=== PATIENT | female | born 1955 | race African-American/Black ===

== ENCOUNTER 2018-09-18 09:27 | Inpatient (IN) | payer MEDICARE, OTHER ==
[~2018-09-18] VITALS: Ht 167.6 cm; Wt 123.8 kg
[~2018-09-18 09:27] MED LIST: ALBUT2 NEB; AMLO2.5T4 PO; ASCO500T8 PO; ASPI-1169 PO; ATOR20TA PO; BACL10TA PO; CEFT1VIA15 IV; CLON0.2T12 PO; DEXT15DR6 EACHEYE; DIPH25CA83 PO; DOCU50LI PO; FAMO20TA80 PO; FERR325T28 PO; FOLI1TAB16 PO; FURO20TA4 PO; HYDR2TAB4 PO; INSU100V9 SQ; IPRA3AMP23 IH; LISI30TA4 PO; LORA0.5T PO; MULT-594 PO; NUT.100029 PO; OXYC-128 PO; POTA20TA83 PO; PREG75CA PO; RIVA10TA PO; SERT25TA5 PO; SIME80TA15 PO
[2018-09-18] MEDS ORDERED: MEROPENEM 1 G in IV NS 0.9% 100 ML IV ONE (09:30)
[2018-09-18] MEDS ORDERED: IV NS 0.9% 1,000 ML BAG IV ONE (09:30)
--- NOTE | 2018-09-18 09:40 | NUR ---
patient presented to the ER due to AMS, bibra. on trach, connected to the monitor and pulse ox. patient is hardstick and called RN repair department supervisor for picc line. kept comfortable, will continue to monitor accordingly.
[2018-09-18 10:19] LABS: BASOPHILS % (AUTO) 0.2 % (0.0-2.0); HEMATOCRIT 35 % (33-45); HEMOGLOBIN 11.4 g/dL (11.5-14.8); LYMPHOCYTES # (AUTO) 0.8 /CMM (0.8-4.8); LYMPHOCYTES % (AUTO) 13.1 % (20.0-44.0); MEAN CORPUSCULAR HGB CONC 33 g/dl (31.0-36.0); MEAN CORPUSCULAR VOLUME 92 fL (82-100); MONOCYTES # (AUTO) 1.1 /CMM (0.1-1.30); MONOCYTES % (AUTO) 18.4 % (2.0-12.0); NEUTROPHILS # (AUTO) 4.2 /CMM (1.8-8.9); NEUTROPHILS % (AUTO) 68.3 % (43.0-81.0); PLATELET COUNT (AUTO) 142 /CMM (150-450); RED BLOOD CELL COUNT(AUTO) 3.78 MIL/uL (4.0-5.2); WHITE BLOOD COUNT (AUTO) 6.1 K/uL (4.3-11.0)
[2018-09-18 10:36] LABS: CALCIUM, SERUM 8.7 mg/dL (8.5-10.1); CREATININE 1.5 mg/dL (0.6-1.3); POTASSIUM 3.4 mmol/L (3.5-5.1)
[2018-09-18 10:41] LABS: BILIRUBIN,URINE MODERATE (NEGATIVE); BLOOD, URINE Large Ery/uL (NEGATIVE); COLOR,URINE Yellow (YELLOW); KETONES,URINE 15 (NEGATIVE); LEUKOCYTE ESTERASE ,URINE Large (NEGATIVE); NITRITE, URINE Negative (NEGATIVE); PROTEIN,URINE 30 mg/dl (NEGATIVE); UGLUCOSE Negative (NEGATIVE); UROBILINOGEN,URINE 0.2 EU/dL (0.2)
[2018-09-18 10:44] LABS: APPEARANCE,URINE Slightly Cloudy (CLEAR)
[2018-09-18 10:51] LABS: BILIRUBIN,DIRECT 0.1 mg/dL (0.0-0.2); BILIRUBIN,TOTAL 0.4 mg/dL (0.2-1.0); TOTAL PROTEIN, SERUM 7.2 g/dL (6.4-8.2)
[2018-09-18 10:59] LABS: LYMPHOCYTES % (MANUAL) 16 % (16-48); MONOCYTES % (MANUAL) 14 % (0-11.0); NEUTROPHILS % (MANUAL) 70 (42-76)
--- NOTE | 2018-09-18 11:10 | NUR ---
JACOB PICC LINE NURSE AT BEDSIDE
[2018-09-18 11:19] LABS: BACTERIA,URINE Many /HPF (None Seen); RBC,URINE 21-50 /HPF (0-2); WBC,URINE 21-50 /HPF (0-3)
[2018-09-18 11:20] LABS: SQUAMOUS EPITHELIAL CELL,UR Moderate /HPF (None Seen)
[2018-09-18] MEDS ORDERED: ONDA4TAB5 PO (11:20)
[2018-09-18] MEDS ORDERED: HYDR-4384 PO (11:20)
[2018-09-18] MEDS ORDERED: ACID1TAB12 PO (11:20)
[2018-09-18] MEDS ORDERED: LEVE250T2 PO (11:20)
[2018-09-18] MEDS ORDERED: TRAM50TA2 PO (11:20)
[2018-09-18] MEDS ORDERED: MAGN400O6 PO (11:20)
[2018-09-18] MEDS ORDERED: LACT10SO29 PO (11:20)
[2018-09-18] MEDS ORDERED: BLOO-668 IN (11:20)
[2018-09-18] MEDS ORDERED: PREG75CA PO (11:20)
[2018-09-18] MEDS ORDERED: HYDR10SY16 PO (11:20)
[2018-09-18] MEDS ORDERED: METF-440 PO (11:20)
[2018-09-18] MEDS ORDERED: SENN-168 PO (11:20)
[2018-09-18] MEDS ORDERED: CHOL100044 PO (11:20)
[2018-09-18] MEDS ORDERED: LEVO750T21 PO (11:20)
[2018-09-18] MEDS ORDERED: PREG100C PO (11:20)
[2018-09-18] MEDS ORDERED: MAGN296S44 PO (11:20)
[2018-09-18] MEDS ORDERED: CALC500T13 PO (11:20)
[2018-09-18] MEDS ORDERED: IPRA3AMP23 IH (11:21)
[2018-09-18] MEDS ORDERED: ZOLPIDEM TARTRATE 5 MG TABLET PO PRN (11:30)
[2018-09-18] MEDS ORDERED: Z GUARD REMEDY 2 OZ OINT TP PRN (11:30)
[2018-09-18] MEDS ORDERED: ACETAMINOPHEN 325 MG TABLET PO PRN (11:30)
[2018-09-18] MEDS ORDERED: LEVOFLOXACIN 750 MG /D5W 150ML 750 MG in PREMIX 1 EA IV SCH (11:30)
[2018-09-18] MEDS ORDERED: MAGNESIUM HYDROXIDE 30 ML UDC PO PRN (11:30)
[2018-09-18] MEDS ORDERED: MAG HYDROX/AL HYDROX/SIMETH 30 ML UDC PO PRN (11:30)
[2018-09-18] MEDS ORDERED: LEVOFLOXACIN 750 MG /D5W 150ML 150 ML IV ONE (11:43)
--- NOTE | 2018-09-18 11:57 | NUR ---
[facility] BED 118-1
--- NOTE | 2018-09-18 12:18 | NUR ---
RN NOTES RECEIVED ENDORSEMENT FROM MEY CAMP FOR PATIENT COMING IN DUE TO ALTERED MENTAL STATUS WITH TELEMETRY ACUITY UNDER THE SERVICE OF DR KING. ROOM PREPARED, BED ZERO OUT. AWAITING PATIENT'S ARRIVAL
--- NOTE | 2018-09-18 12:18 | NUR ---
called [facility] and spoke to sharon RN for CARLTON, report given.
[2018-09-18] MEDS: ENOXAPARIN SODIUM 40 MG/0.4 ML DISP.SYRIN SQ SCH (13:39)
--- NOTE | 2018-09-18 13:50 | NUR ---
RN NOTES RECEIVED PATIENT FROM ER TRANSPORTED VIA STRETCHER WITH A TRANSPORTER AND TECH. PATIENT CONFUSED, UNABLE TO COMMUNICATE AT THIS TIME. TRANSFERRED TO BED. WITH TRACH TUBE; IN PLACE AT MIDLINE, ON COOL AEROSOL AT 28% FIO2, PATIENT CLEANED AND MADE WARMTH. COMPLETE BODY ASSESSMENT WAS DONE. HEALED SKIN EXCORIATION NOTED ON THE L BUTTOCK AREA. PICTURE TAKEN AND NOTED, FILED ON THE CHART. UNABLE TO INTERVIEW THE PATIENT DUE TO ALTERED MENTAL STATUS. HEART MONITOR ATTACHED TO THE PATIENT SHOWED ST HR= 103. DIXIE MIDLINE NOTED PATENT, INTACT AND FLUSHED WELL. ADMISSION ORDERS FROM DR. KING CARRIED OUT. MRSA NARES SCREENING WAS DONE BY THE ER NURSE AND WAS SENT TO LAB. CALL LIGHT PLACED WITHIN REACH. HOB ELEVATED.SAFETY MEASURES PUT IN PLACED.NEEDS ANTICIPATED.
--- NOTE | 2018-09-18 14:20 | NUR ---
transferred patient to [facility] in no apparent distress, via acls protocol.
[2018-09-18] MEDS: IV D5/0.45 NACL 1,000 ML IV PRN (14:37)
[2018-09-18 16:00] VITALS: BP 142/82
--- NOTE | 2018-09-18 17:00 | NUR ---
RN NOTES PAGED DR. KING FOR MEDICATION RECONCILIATION.
[2018-09-18 18:52] VITALS: BP 142/82
--- NOTE | 2018-09-18 19:30 | NUR ---
RN NOTES ENDORSED PATIENT FOR CONTINUITY OF CARE. NOT ON ANY FORM OF DISTRESS. NO ACUTE CHANGES WITHIN THE SHIFT. ALL NURSING NEEDS ANTICIPATED AND ATTENDED
[2018-09-18 19:54] VITALS: BP 146/80
[2018-09-18 20:00] VITALS: BP 146/80
--- NOTE | 2018-09-18 20:10 | NUR ---
PLASMA CUTTING MACHINE OPERATOR OPENING NOTES RECEIVED REPORT FROM PAIGE RN. PATIENT NON-VERBAL BUT A/O X1 TO NAME & RESPONDS TO TOUCH. UNABLE TO MAKE NEEDS KNOWN @ THIS TIME & NOTED W/ LETHARGY. BREATHING EVEN & UNLABORED W/ TRACH INTACT & TOLERATING COOL AEROSOL @ 28%. NO RESPIRATORY DISTRESS NOTED. ON TELE W/ SINUS RHYTHM, HR 90. RIGHT UPPER ARM PICC LINE INTACT & PATENT W/ DRESSING CDI & IVF D5 1/2 NS INFUSING WELL @ 100 ML/HR. NO S/S OF PAIN OR DISCOMFORT @ THIS TIME. SAFETY MEASURES IN PLACE W/ SIDE RAILS UP & BED ALARM ON. HOB ELEVATED FOR ASPIRATION PRECAUTIONS. WILL CONTINUE TO MONITOR.
[2018-09-18] MEDS: CEFTRIAXONE 1 G in IV D5W 50 ML IV SCH (20:26)
[2018-09-18] MEDS ORDERED: DEXTROSE 50%-WATER 50 ML DISP.SYRIN IV PRN (20:30)
[2018-09-18] MEDS: ONDANSETRON HCL/PF 4 MG/2 ML VIAL IVP PRN (20:31)
--- NOTE | 2018-09-18 20:45 | NUR ---
SALES ACCOUNT SPECIALIST NOTES PATIENT HAD SMALL BROWN EMESIS X1. PRN ZOFRAN IV GIVEN. WILL CONTINUE TO MONITOR.
[2018-09-19] VITALS: BP 151/83
[2018-09-19] MEDS: BLOOD SUGAR DIAGNOSTIC 1 EACH STRIP IN SCH ×5 (00:51→23:12)
[2018-09-19] MEDS: INSULIN REGULAR, HUMAN 100 UNIT/ML 3 ML VIAL SQ PRN ×5 (00:54→23:15)
[2018-09-19] MEDS ORDERED: HYDROMORPHONE 1 MG/1 ML DISP.SYRIN IV ONE (01:00)
[2018-09-19] MEDS: IV D5/0.45 NACL 1,000 ML IV PRN ×3 (01:12→23:08)
[2018-09-19] MEDS: ONDANSETRON HCL/PF 4 MG/2 ML VIAL IVP PRN ×2 (01:12→21:20)
[2018-09-19 04:00] VITALS: BP 132/77
[2018-09-19 06:24] LABS: BASOPHILS % (AUTO) 0.1 % (0.0-2.0); HEMATOCRIT 32 % (33-45); HEMOGLOBIN 10.5 g/dL (11.5-14.8); LYMPHOCYTES # (AUTO) 0.6 /CMM (0.8-4.8); LYMPHOCYTES % (AUTO) 9.5 % (20.0-44.0); MEAN CORPUSCULAR HGB CONC 33 g/dl (31.0-36.0); MEAN CORPUSCULAR VOLUME 92 fL (82-100); MONOCYTES % (AUTO) 15.1 % (2.0-12.0); NEUTROPHILS # (AUTO) 4.8 /CMM (1.8-8.9); NEUTROPHILS % (AUTO) 75.3 % (43.0-81.0); PLATELET COUNT (AUTO) 129 /CMM (150-450); RED BLOOD CELL COUNT(AUTO) 3.45 MIL/uL (4.0-5.2); WHITE BLOOD COUNT (AUTO) 6.4 K/uL (4.3-11.0)
[2018-09-19 06:40] LABS: CALCIUM, SERUM 8.2 mg/dL (8.5-10.1); CREATININE 1.4 mg/dL (0.6-1.3); MAGNESIUM 1.8 mg/dL (1.8-2.4); PHOSPHORUS 2.1 mg/dL (2.5-4.9); POTASSIUM 3.2 mmol/L (3.5-5.1)
[2018-09-19 06:45] LABS: THYROID STIMULATING HORMONE 0.214 uIU/mL (0.358-3.74)
--- NOTE | 2018-09-19 07:03 | NUR ---
HEAVY EQUIPMENT SUPERVISOR NOTES PLACE PATIENT IN SOFT WRIST RESTRAINT ON LEFT ARM D/T PATIENT PULLING T-PIECE OFF. ORDER PLACED & ENDORSED TO AM NURSE.
--- NOTE | 2018-09-19 07:12 | NUR ---
RN NOTES RECEIVED PT ON BED, A/Ox1, TRACH DEPENDENT, NON VERBAL , NO SOB NOTED, TRACH INTACT & TOLERATING COOL AEROSOL @ 28%. NO RESPIRATORY DISTRESS NOTED. ON TELE SR HR IN 90'S, RIGHT UPPER ARM PICC LINE INTACT & PATENT W/ DRESSING CDI & IVF D5 1/2 NS INFUSING WELL @ 100 ML/HR. BULLARD DRAINING TO GRAVITY, SR UP x3, SAFETY MEASURES IN PLACE, BED ALARM ON. BED LOCKED AND IN LOWEST POSITION, HOB ELEVATED FOR ASPIRATION PRECAUTIONS. WILL CONTINUE TO MONITOR.
[2018-09-19 08:00] VITALS: BP 155/77
[2018-09-19] MEDS: ENOXAPARIN SODIUM 40 MG/0.4 ML DISP.SYRIN SQ SCH (08:49)
--- NOTE | 2018-09-19 08:57 | NUR ---
WOUND CARE CONSULT: PT PRESENTS WITH FECAL INCONTINENCE AND IMMOBILITY, SCARRING TO SACRUM, BUTTOCKS AND THIGHS, PRESENT ON ADMISSION. RECOMMENDATIONS MADE FOR SKIN PROTECTION. DISCUSSED WITH NURSING STAFF. PT ON [facility] LOW AIRSS BED. WILL SEE PRN. WONG IN AGREEMENT WITH PLAN OF CARE. Addendum: 09/19/18 at 0858 by STEPHEN LAUREN WNDNU Amended: Links added.
[2018-09-19 11:00] LABS: ABG BASE EXCESS 1.7 mmol/L; ABG PCO2 56.1 mmHg (35.0-45.0); ABG PH 7.325 (7.350-7.450); ABG PO2 76.2 mmHg (75.0-100.0); AaDO2 57.2 mmHg; COHb 0.4 % (0.5-1.5); MetHb 1.3 % (0.0-1.5); O2Hb 92.4 % (94.0-97.0); SITE, ABG Right Radial; VENT MODE, BG C/A 28%
--- NOTE | 2018-09-19 11:10 | NUR ---
RN NOTES DR GUERRA NOTIFIED REGARDING CO2 =56, NEW ORDER RECEIVED FOR ABG IN AM .
[2018-09-19] MEDS: HYDROCODONE/APAP 5/325MG 1 EACH TABLET PO PRN (11:39)
[2018-09-19 12:00] VITALS: BP 145/77
[2018-09-19] MEDS: POTASSIUM CHLORIDE 20 MEQ TAB.PRT.SR PO SCH ×3 (12:00→12:56)
--- NOTE | 2018-09-19 12:00 | NUR ---
RN NOTES PT REFUSED LUNCH AT THIS TIME .
[2018-09-19 12:06] LABS: APPEARANCE,URINE CLOUDY (CLEAR); BILIRUBIN,URINE NEGATIVE (NEGATIVE); BLOOD, URINE 3+ Ery/uL (NEGATIVE); KETONES,URINE NEGATIVE (NEGATIVE); LEUKOCYTE ESTERASE ,URINE 1+ (NEGATIVE); NITRITE, URINE POSITIVE (NEGATIVE); PROTEIN,URINE 2+ mg/dl (NEGATIVE); UGLUCOSE 1+ mg/dL (NEGATIVE); UROBILINOGEN,URINE 0.2 EU/dL (0.2)
[2018-09-19 12:10] LABS: COLOR,URINE DARK YELLOW (YELLOW)
[2018-09-19 12:15] LABS: CREATININE, URINE 67.5 MG/DL (30.0-125.0); URINE TOTAL PROTEIN 169.9 mg/dL (0-11.9)
[2018-09-19 12:16] LABS: BACTERIA,URINE Few /HPF (None Seen); RBC,URINE TOO NUMEROUS TO COUN /HPF (0-2); SQUAMOUS EPITHELIAL CELL,UR Rare /HPF (None Seen)
[2018-09-19 12:52] LABS: EOSINOPHIL,URINE Rare
[2018-09-19] MEDS ORDERED: Potassium Chloride 40 MEQ in IV NS 0.9% 1,000 ML IV ONE (13:00)
[2018-09-19] MEDS: HYDROMORPHONE 1 MG/1 ML DISP.SYRIN IV PRN ×3 (13:18→21:21)
[2018-09-19] MEDS: CEFTRIAXONE 1 G in IV D5W 50 ML IV SCH (13:22)
[2018-09-19] MEDS ORDERED: NEUTRA PHOS 1 POWD.PACKET PO ONE (13:30)
[2018-09-19] MEDS: POTASSIUM CL. PREMIX PERIPHER. 50 ML IV SCH ×4 (13:41→17:01)
[2018-09-19 16:00] VITALS: BP 113/62
--- NOTE | 2018-09-19 18:00 | NUR ---
RN NOTES NO SIGNIFICANT CHANGES NOTED ON THIS SHIFT ,WILL ENDORSE TO MANAGER CAFE NURSE FOR CONTINUITY OF CARE .
--- NOTE | 2018-09-19 19:45 | NUR ---
RN NOTES RECEIVED PT ASLEEP ON BED AOX1 ABLE TO EXPRESSED FEELINGS AND NODS. CONFUSED AND LETHARGIC MOST OF THE TIME. WITH TRACH SHILEY 6 ON COOL AEROSOL FIO2 28%. NO APPARENT RESPIRATORY DISTRESS. NSR ON TELE MONITOR. IV SITE ON DIXIE PICC LINE D5 1/2 NS @ 100ML/HR INTACT AND PATENT. WITH GOOD BLOOD RETURN. PATIENT HAS BULLARD CATH DRAINED BY GRAVITY OFF FROM FLOOR. KEPT PATIENT CLEAN AND COMFORTABLE IN BED. WILL CONTINUE TO MONITOR,
[2018-09-19 20:00] VITALS: BP 143/78
[2018-09-20] VITALS: BP 158/83
[2018-09-20] MEDS: HYDROCODONE/APAP 5/325MG 1 EACH TABLET PO PRN ×2 (01:29→17:49)
--- NOTE | 2018-09-20 01:35 | NUR ---
RN NOTES PATIENT SPIT OUT NORCO BY MOUTH,L WILL GIVE DILAUDID IVP
[2018-09-20] MEDS: HYDROMORPHONE 1 MG/1 ML DISP.SYRIN IV PRN ×2 (02:01→06:37)
[2018-09-20 04:00] VITALS: BP 152/79
[2018-09-20] MEDS: ALBUTEROL FS 2.5 MG/3 ML VIAL.NEB NEB SCH ×6 (05:25→23:11)
[2018-09-20] MEDS: IPRATROPIUM NEB FS 0.5 MG/2.5 ML AMPUL.NEB NEB SCH ×6 (05:25→23:11)
[2018-09-20] MEDS: BLOOD SUGAR DIAGNOSTIC 1 EACH STRIP IN SCH ×3 (06:37→18:01)
[2018-09-20 06:42] LABS: ALBUMIN 2.8 g/dL (3.4-5.0); BILIRUBIN,TOTAL 0.2 mg/dL (0.2-1.0); CALCIUM, SERUM 8.4 mg/dL (8.5-10.1); CREATININE 1.2 mg/dL (0.6-1.3); MAGNESIUM 1.8 mg/dL (1.8-2.4); PHOSPHORUS 1.6 mg/dL (2.5-4.9); POTASSIUM 3.2 mmol/L (3.5-5.1); TOTAL PROTEIN, SERUM 6.8 g/dL (6.4-8.2)
[2018-09-20] MEDS: INSULIN REGULAR, HUMAN 100 UNIT/ML 3 ML VIAL SQ PRN (06:43)
[2018-09-20 06:44] LABS: BASOPHILS % (AUTO) 0.2 % (0.0-2.0); HEMATOCRIT 32 % (33-45); HEMOGLOBIN 10.5 g/dL (11.5-14.8); LYMPHOCYTES # (AUTO) 0.7 /CMM (0.8-4.8); LYMPHOCYTES % (AUTO) 11.8 % (20.0-44.0); MEAN CORPUSCULAR HGB CONC 33 g/dl (31.0-36.0); MEAN CORPUSCULAR VOLUME 91 fL (82-100); MONOCYTES # (AUTO) 0.9 /CMM (0.1-1.30); MONOCYTES % (AUTO) 14.6 % (2.0-12.0); NEUTROPHILS # (AUTO) 4.6 /CMM (1.8-8.9); NEUTROPHILS % (AUTO) 73.4 % (43.0-81.0); PLATELET COUNT (AUTO) 129 /CMM (150-450); RED BLOOD CELL COUNT(AUTO) 3.53 MIL/uL (4.0-5.2); WHITE BLOOD COUNT (AUTO) 6.2 K/uL (4.3-11.0)
--- NOTE | 2018-09-20 07:00 | NUR ---
FIXED WING AIRCRAFT FLIGHT ENGINEER OPENING NOTES RECEIVED PT IN BED, A/OX1. PT ON TRACH TO COOL AEROSOL TO 28%O2 5L. ON TELE NSR 67. TOLERATING WELL. O2 SAT WNL. PT PICC LINE, C/D/I/P. IV FLUIDS RUNNING. F/C DRAINING CLEAR YELLOW URINE. STOOL COLLECTED. LOOSE BLACK STOOL NOTED. ABD DISTENDED AND FIRM. BED IN LOCKED/LOWEST POSITION. CALL LIGHT IN REACH. WILL CONT TO MONITOR.
--- NOTE | 2018-09-20 07:44 | NUR ---
RN NOTES PATIENT REMAINED IN THE SAME CONDITION. TEARY EYED WHEN AWAKE. FACIAL COMPLAINED OF PAIN NOTED. AFEBRILE. PRN PAIN MEDICINE GIVEN ORDERED AND REMAINED EFFECTIVE. ENDORSED TO AM SHIFT TO FOLLOW UP CT SCAN OF ABDOMEN/PELVIS WITHOUT CONTRAST. KEPT PT CLEAN AND COMFORTABLE IN BED.
[2018-09-20 08:00] VITALS: BP 133/77
[2018-09-20] MEDS ORDERED: POTASSIUM PHOSPHATE MM 15 MMOL in IV D5W 250 ML IV ONE (09:00)
[2018-09-20 09:26] LABS: ABG BASE EXCESS -1.8 mmol/L; ABG OXYGEN SATURATION 94.8 % (92.0-98.5); ABG PCO2 59.2 mmHg (35.0-45.0); ABG PH 7.261 (7.350-7.450); ABG PO2 80.2 mmHg (75.0-100.0); AaDO2 49.6 mmHg; COHb 0.8 % (0.5-1.5); MetHb 0.5 % (0.0-1.5); O2Hb 93.6 % (94.0-97.0); SITE, ABG Left Radial
--- NOTE | 2018-09-20 09:50 | NUR ---
RT @ 0945 - Pt trach needed to be changed to be placed on the vent. Dr. Sorto spoke with and agrees with trach change. Trach change done with new Shiley 6 cuffed trach. Trach change done with no complications. Equal bilateral breathe sounds and chest rise. Pt airway is patent. @ 0950 - Pt was placed on vent with noted settings. Vent alarms are set and audible with BVM by bedside. BLENDER/BRAZE APPLICATOR cuff pressure noted. Vent is plugged into red outlet. Pt appears to be comfortable on the vent with no respiratory distress. Addendum: 09/20/18 at 1028 by NIECY BEJARANO RT Amended: Links added.
--- NOTE | 2018-09-20 10:00 | NUR ---
SHIELD INSTALLER NOTES TRACH CHANGED TO VENT SETTINGS BY RT ORDERED BY . PT TOLERATING WELL.
[2018-09-20] MEDS: ENOXAPARIN SODIUM 40 MG/0.4 ML DISP.SYRIN SQ SCH (10:14)
[2018-09-20 12:00] VITALS: BP 106/53
[2018-09-20] MEDS: POTASSIUM CHLORIDE 20 MEQ TAB.PRT.SR PO SCH ×2 (12:00→13:00)
[2018-09-20] MEDS: IV 1/2NS 1000 ML 1,000 ML IV PRN (12:24)
[2018-09-20 13:04] LABS: ABG BASE EXCESS 1.8 mmol/L; ABG OXYGEN SATURATION 96.7 % (92.0-98.5); ABG PCO2 45.4 mmHg (35.0-45.0); ABG PH 7.394 (7.350-7.450); ABG PO2 89.4 mmHg (75.0-100.0); AaDO2 71.2 mmHg; COHb 0.6 % (0.5-1.5); MetHb 0.1 % (0.0-1.5); PEEP,BG 5 cm H2O; SITE, ABG Left Radial; VT, ABG 650 mL
[2018-09-20] MEDS: CEFTRIAXONE 1 G in IV D5W 50 ML IV SCH (14:56)
[2018-09-20 16:00] VITALS: BP 133/46
--- NOTE | 2018-09-20 16:00 | NUR ---
MIDDLE SCHOOL GUIDANCE COUNSELOR NOTES PT WENT TO CT FOR ABD/PELVIS SCAN. PT PLACED ON MONITOR AND RT AT BEDSIDE. PT TOLERATED PROCEDURE WELL.
[2018-09-20] MEDS: POTASSIUM CL. PREMIX PERIPHER. 50 ML IV SCH ×2 (16:18→18:48)
[2018-09-20 16:33] LABS: OCCULT BLOOD STOOL POSITIVE (NEGATIVE)
--- NOTE | 2018-09-20 17:45 | NUR ---
FUSING MACHINE TENDER NOTES PT REQUESTED PAIN MEDS. CRUSHED IN 10 CC LIQUID. AT BS PT REFUSED.
--- NOTE | 2018-09-20 18:59 | NUR ---
GUM ROLLING MACHINE TENDER CLOSING NOTES ENDORSED PT TO PM SHIFT FOR [place]. PT IN BED, RESTING COMFORTABLY ON VENT. ON TELE SR. IV FLUIDS INFUSING VIA PATENT PICC LINE. ALL NEEDS ATTENDED TO. CALL LIGHT IN REACH. BED IN LOCKED/LOWEST POSITION.
[2018-09-20 20:00] VITALS: BP 131/57
--- NOTE | 2018-09-20 20:00 | NUR ---
TELE/RN NOTES: RECEIVED PT. IN BED W/ HOB ELEVATED AT ALL TIMES. ON TELE MONITOR W/ SR. TALA. SOFT WRIST RESTRAINTS ON. W/ PICC LINE ON DIXIE W/ DRESSING C/D/I W/ NO S/S OF INFECTION/INFILTRATION NOTED. ON MECH. VENT SETTING TOLERATING WELL. NO FACIAL GRIMACES OR C/O PAIN OR DISCOMFORT OR SOB NOTED AT PRESENT. ON CONTACT ISOLATION . W/ FLEXISEAL INTACT DRAINING 300 ML OUTPUT. W/ F/C INTACT DRAINING SEDIMENTS. CALL LIGHT W/REACH. WILL CONTINUE TO MONITOR.
--- NOTE | 2018-09-20 23:29 | NUR ---
PT RCVD TRACH'D ON MECHANICAL VENT WITH CHARTED SETTINGS. HHN TX GIVEN AND NO ADVERSE REACTION NOTED. SX DONE. PT TRACH IS PATENT AND SECURE. AMBU BAG AT BEDSIDE. ALARMS ARE ON AND AUDIBLE. VENT PLUGGED INTO RED OUTLET. WILL CONTINUE TO MONITOR. Addendum: 09/20/18 at 2330 by CYNTHIA LEIGH RT Amended: Links added.
[2018-09-21] VITALS: BP 145/80
[2018-09-21] MEDS: BLOOD SUGAR DIAGNOSTIC 1 EACH STRIP IN SCH ×4 (00:02→17:09)
[2018-09-21] MEDS: INSULIN REGULAR, HUMAN 100 UNIT/ML 3 ML VIAL SQ PRN ×4 (00:05→17:04)
[2018-09-21] MEDS: HYDROMORPHONE 1 MG/1 ML DISP.SYRIN IV PRN ×5 (00:09→21:16)
[2018-09-21] MEDS: ALBUTEROL FS 2.5 MG/3 ML VIAL.NEB NEB SCH ×6 (03:16→23:30)
[2018-09-21] MEDS: IPRATROPIUM NEB FS 0.5 MG/2.5 ML AMPUL.NEB NEB SCH ×6 (03:16→23:30)
[2018-09-21 04:00] VITALS: BP 122/72
[2018-09-21 05:48] LABS: BASOPHILS % (AUTO) 0.1 % (0.0-2.0); HEMATOCRIT 27 % (33-45); HEMOGLOBIN 8.9 g/dL (11.5-14.8); LYMPHOCYTES # (AUTO) 0.7 /CMM (0.8-4.8); MEAN CORPUSCULAR HGB CONC 33 g/dl (31.0-36.0); MEAN CORPUSCULAR VOLUME 90 fL (82-100); MONOCYTES # (AUTO) 0.7 /CMM (0.1-1.30); MONOCYTES % (AUTO) 14.2 % (2.0-12.0); NEUTROPHILS # (AUTO) 3.3 /CMM (1.8-8.9); NEUTROPHILS % (AUTO) 70.7 % (43.0-81.0); PLATELET COUNT (AUTO) 117 /CMM (150-450); WHITE BLOOD COUNT (AUTO) 4.7 K/uL (4.3-11.0)
[2018-09-21 06:06] LABS: ALBUMIN 2.6 g/dL (3.4-5.0); BILIRUBIN,TOTAL 0.3 mg/dL (0.2-1.0); CALCIUM, SERUM 8.4 mg/dL (8.5-10.1); CREATININE 1.5 mg/dL (0.6-1.3); MAGNESIUM 1.6 mg/dL (1.8-2.4); PHOSPHORUS 1.4 mg/dL (2.5-4.9); TOTAL PROTEIN, SERUM 6.1 g/dL (6.4-8.2)
[2018-09-21 06:21] LABS: POTASSIUM 2.8 mmol/L (3.5-5.1)
--- NOTE | 2018-09-21 06:26 | NUR ---
RN/TELE NOTES: [facility] CALLED FOR CRITICAL OF K 2.8 AND GLUCOSE OF 350. TEXTED JAMISON TEJEDA NP. @ 06:22 WAITING FOR CALL BACK.
[2018-09-21] MEDS ORDERED: POTASSIUM CHLORIDE 10 MEQ/50 ML PREMIXED IVPB FOR PERIPHERAL LINE IV ONE (07:00)
--- NOTE | 2018-09-21 07:45 | NUR ---
RN/TELE NOTES: REPORT GIVEN TO NEXT SHIFT NURSE FOR [place].
--- NOTE | 2018-09-21 07:54 | NUR ---
TRIMMER AND REINFORCER NOTES RECEIVED PATIENT FROM NIGHT RN. PT TRACH'D ON MECHANICAL VENT WITH PRESCRIBED SETTINGS. TRACH IS PATENT AND SECURE. AMBU BAG AT BEDSIDE. BULLARD PATENT W/ CLEAR YELLOW URINE. FLEXISEAL PATENT. DIXIE PICC LINE INTACT AND PATENT. ALARMS ARE ON AND AUDIBLE. VENT PLUGGED INTO RED OUTLET. WILL CONTINUE TO MONITOR.
[2018-09-21 08:00] VITALS: BP 104/41
[2018-09-21] MEDS: ENOXAPARIN SODIUM 40 MG/0.4 ML DISP.SYRIN SQ SCH (09:22)
[2018-09-21] MEDS: POTASSIUM CL. PREMIX PERIPHER. 50 ML IV SCH ×5 (10:07→15:35)
[2018-09-21] MEDS ORDERED: MEROPENEM 500 MG in IV NS 0.9% 50 ML IV ONE (11:00)
[2018-09-21] MEDS ORDERED: Magnesium 1GM/D5W 100ML PREMIX 100 ML IV SCH (11:03)
[2018-09-21 12:00] VITALS: BP 123/67
--- NOTE | 2018-09-21 14:20 | NUR ---
COFFEE SHOP ATTENDANT NOTE ASHLEY AT BEDSIDE NOTIFIED THAT EARLIER PATIENT C]O PAIN AND DILAIYUDID GIVEN ALSO HAS A LOT SECRETION ,TRACH CARE DONE ON NPO AT THIS TIME
[2018-09-21] MEDS: POTASSIUM PHOSPHATE MM 5 MMOL in IV D5W 100 ML IV SCH ×2 (14:45→16:59)
[2018-09-21 15:09] LABS: PTH, INTACT 67 pg/mL (15-65)
--- NOTE | 2018-09-21 15:09 | NUR ---
FLAGSETTER NOTE PATIENT D/C AMBULATORY. AT SIDE DURING D/C. IV REMOVED. PATIENT STABLE, V/S WNL, A/O X 4. REFUSED USE OF WHEELCHAIR. D/C COMPLETED W/O INCIDENT. Addendum: 09/21/18 at 1522 by FRANCESCA JOSE RN DISREGARD WRONG PATIENT
--- NOTE | 2018-09-21 15:21 | NUR ---
RUBBER MILL TENDER NOTE UNABLE TO REMOVED SOFT RESTRAIN STILL AT [facility] TO REMOVE ALL LINES
[2018-09-21 16:00] VITALS: BP 116/48
[2018-09-21] MEDS ORDERED: POTASSIUM CL. PREMIX PERIPHER. 50 ML IV SCH (16:00)
--- NOTE | 2018-09-21 18:24 | NUR ---
PATIENT ENDORSED TO PM SHIFT RN. PT IN BED, RESTING COMFORTABLY. A/O X 2, MENTAL STATUS UNCHANGED DURING SHIFT. PATIENT TRACH/VENT AND RUNNING PRESCRIBED. BREATHING UNLABORED AND WNL. SR ON TELE, DIXIE PICC LINE PATENT W/ NO S/S OF INFECTION. IV FLUID INFUSING. BULLARD INTACT AND PATENT W/ CLEAR YELLOW URINE. FLEXISEAL PATENT. BED IN LOW LOCKED POSITION, CALL LIGHT WITHIN REACH. ALL NEEDS ATTENDED TO.
[2018-09-21] MEDS: IV 1/2NS 1000 ML 1,000 ML IV PRN (18:43)
--- NOTE | 2018-09-21 18:56 | NUR ---
WINDOWS SERVER SPECIALIST NOTES RESTRAINT ORDER D/C. PATIENT COOPERATIVE AND NOT ATTEMPTING TO PULL LINES, TUBING OR PRESENT ANY DANGER TO HER SELF OR OTHERS.
--- NOTE | 2018-09-21 19:30 | NUR ---
EXERCISE INSTRUCT NOTE: RECEIVED PT ON BED ALERT AND AWAKE WITH NO APPARENT DISTRESS NOTED. PT ABLE TO MAKE HER NEEDS KNOWN, MOUTHS WORDS. DENIES PAIN AND DISCOMFORT AT THIS TIME. ON [facility] VENT, SETTINGS ORDERED. BULLARD CATH AND FLEXISEAL INTACT AND PATENT, DRAINING WELL. SINUS RHYTHM ON TELE MONITOR HR 69BPM. KEPT CLEAN, DRY AND COMFORTABLE. SAFETY AND FALL PRECAUTIONS OBSERVED AND MAINTAINED. WILL CONTINUE TO MONITOR PT.
[2018-09-21 20:00] VITALS: BP 135/63
[2018-09-21] MEDS ORDERED: MEROPENEM 500 MG in IV NS 0.9% 100 ML IV SCH (21:00)
[2018-09-21] MEDS: MEROPENEM 500 MG in IV NS 0.9% 100 ML IV SCH (22:06)
[2018-09-22] VITALS (7 sets, daily range): BP systolic 138–198; BP diastolic 68–82
[2018-09-22] MEDS: BLOOD SUGAR DIAGNOSTIC 1 EACH STRIP IN SCH ×5 (00:04→20:20)
[2018-09-22] MEDS: INSULIN REGULAR, HUMAN 100 UNIT/ML 3 ML VIAL SQ PRN ×5 (00:17→20:24)
[2018-09-22] MEDS: HYDROMORPHONE 1 MG/1 ML DISP.SYRIN IV PRN ×6 (00:49→21:31)
[2018-09-22] MEDS: ALBUTEROL FS 2.5 MG/3 ML VIAL.NEB NEB SCH ×6 (03:35→23:22)
[2018-09-22] MEDS: IPRATROPIUM NEB FS 0.5 MG/2.5 ML AMPUL.NEB NEB SCH ×6 (03:35→23:22)
[2018-09-22 05:14] LABS: *SPE A/G RATIO 0.9 (0.7-1.7); *SPE ALBUMIN 2.9 g/dL (2.9-4.4); *SPE ALPHA-1-GLOBULIN 0.2 g/dL (0.0-0.4); *SPE ALPHA-2-GLOBULIN 1.3 g/dL (0.4-1.0); *SPE BETA GLOBULIN 0.9 g/dL (0.7-1.3); *SPE GLOBULIN, TOTAL 3.4 g/dL (2.2-3.9); *SPE M-SPIKE Not Observed g/dL (Not Observed)
--- NOTE | 2018-09-22 06:38 | NUR ---
FORMAL SERVICE WAITER NOTE: NO CHANGES NOTED THROUGHOUT THE SHIFT. PT COMPLAINED OF GENERALIZED PAIN, PRN PAIN MEDS GIVEN. NO RESPIRATORY DISTRESS NOTED. [facility] ORDERED. ON TELE MONITOR SINUS RHYTHM HR 83BPM. BULLARD CATH INTACT, DRAINED 600ML OF URINE OUTPUT. FLEXISEAL INTACT AND PATENT, DRAINING WELL. KEPT CLEAN, DRY AND COMFORTABLE. SAFETY AND FALL PRECAUTIONS OBSERVED AND MAINTAINED. WILL ENDORSE TO DAY SHIFT RN FOR CONTINUITY OF CARE.
[2018-09-22 06:52] LABS: BASOPHILS % (AUTO) 0.1 % (0.0-2.0); HEMATOCRIT 23 % (33-45); HEMOGLOBIN 7.8 g/dL (11.5-14.8); LYMPHOCYTES # (AUTO) 0.7 /CMM (0.8-4.8); LYMPHOCYTES % (AUTO) 15.1 % (20.0-44.0); MEAN CORPUSCULAR HGB CONC 34 g/dl (31.0-36.0); MEAN CORPUSCULAR VOLUME 90 fL (82-100); MONOCYTES # (AUTO) 0.5 /CMM (0.1-1.30); MONOCYTES % (AUTO) 11.7 % (2.0-12.0); NEUTROPHILS # (AUTO) 3.3 /CMM (1.8-8.9); NEUTROPHILS % (AUTO) 73.1 % (43.0-81.0); PLATELET COUNT (AUTO) 130 /CMM (150-450); RED BLOOD CELL COUNT(AUTO) 2.59 MIL/uL (4.0-5.2); WHITE BLOOD COUNT (AUTO) 4.5 K/uL (4.3-11.0)
[2018-09-22 07:01] LABS: CALCIUM, SERUM 8.4 mg/dL (8.5-10.1); CREATININE 1.2 mg/dL (0.6-1.3); MAGNESIUM 1.8 mg/dL (1.8-2.4); PHOSPHORUS 1.8 mg/dL (2.5-4.9)
[2018-09-22 07:05] LABS: POTASSIUM 2.8 mmol/L (3.5-5.1)
--- NOTE | 2018-09-22 07:30 | NUR ---
SALESPERSON WOMEN'S DRESSES NOTES PATIENT RECEIVED RESTING INSIDE ROOM. AWAKE, ALERT AND ORIENTED X 2, ABLE TO MAKE NEEDS KNOWN, ABLE TO MOUTH WORDS. CONTINUE ON VENT/TRACH. NPO AT THIS TIME, AWAITING FOR ST EVAL. NO ACUTE DISTRESS. PATIENT DENIES ANY PAIN OR DISCOMFORT AT THIS TIME. BULLARD CATHETER IN PLACE. FLEXISEAL IN PLACE. MAINTAINED ASPIRATION AND ISOLATION PRECAUTIONS. DIXIE PICCLINE IN PLACE, DRESSING CLEAN AND INTACT. WILL CONTINUE TO MONITOR. BED LOCKED AND IN LOW POSITION. BILATERAL UPPER SIDE RAILS UP AND LOCKED. CALL LIGHT WITHIN EASY REACH
--- NOTE | 2018-09-22 07:53 | NUR ---
PT PLACED ON COOL AEROSOL PER DR. GUERRA ORDERS. CUFF DEFLATED. PT IS AWAKE AND ALERT. SX'D SCANT AMT OF THICK STONE/WHITE SECRETIONS. MEY HERNÁNDEZ AWARE. Addendum: 09/22/18 at 1004 by KIMO MCDERMOTT RT Amended: Links added.
[2018-09-22] MEDS ORDERED: Potassium Phosphate meq 11 MEQ in IV D5W 100 ML IV SCH (08:30)
--- NOTE | 2018-09-22 08:33 | NUR ---
PT PLACED BACK ON FULL VENTILATOR SUPPORT DUE TO THE PATIENT GOING INTO RESP. DISTRESS. PT BECAME TACHYPNEIC, TACHYCARDIC, AND COMPLAINING ON CHEST PAIN. ONCE BACK ON VENT, CUFF WAS INFLATED AND PT STABILIZED. MEY HERNÁNDEZ WAS MADE AWARE AND I ASKED IF HE CAN GIVE THE PATIENT ANY PAIN MEDS SINCE THE PATIENT WAS COMPLAINING OF CHEST PAIN. DR. GUERRA MADE AWARE.
--- NOTE | 2018-09-22 08:40 | NUR ---
TRADE ECONOMIST NOTES SBT TRIAL INITIATED WITH RT BUT PATIENT UNABLE TO TOLERATE, PATIENT BECAME TACHYPNEIC, TACHYCARDIC, AND C/O PAIN. PLACED BACK TO VENT AND PATIENT STABILIZED. WILL CONTINUE TO MONITOR
[2018-09-22] MEDS: POTASSIUM CL. PREMIX PERIPHER. 50 ML IV SCH ×4 (09:16→15:30)
[2018-09-22] MEDS: ENOXAPARIN SODIUM 40 MG/0.4 ML DISP.SYRIN SQ SCH (09:17)
--- NOTE | 2018-09-22 10:00 | NUR ---
HIDE CURER NOTES DR. GUERRA PRESENT AT UNIT, VERBALIZED THAT RT HAS REPORTED TO HIM ABOUT SBT TRIAL RESULT AND VERBALIZED THAT PATIENT WILL CONTINUE ON VENT FOR NOW. WILL CONTINUE TO MONITOR
[2018-09-22 11:00] LABS: BAND % (MANUAL) 1 % (0.0-5.0); LYMPHOCYTES % (MANUAL) 10 % (16-48); MONOCYTES % (MANUAL) 7 % (0-11.0); NEUTROPHILS % (MANUAL) 82 (42-76)
[2018-09-22] MEDS ORDERED: DEXTROSE 50%-WATER 50 ML DISP.SYRIN IV PRN (12:00)
[2018-09-22] MEDS: MEROPENEM 500 MG in IV NS 0.9% 100 ML IV SCH ×2 (12:21→22:21)
[2018-09-22] MEDS: IV D5W 1,000 ML IV PRN (12:39)
[2018-09-22] MEDS: Potassium Phosphate meq 11 MEQ in IV D5W 100 ML IV SCH ×2 (17:10→20:11)
[2018-09-22 17:33] LABS: CHLORIDE,URINE RANDOM 64 mmol/L (55-125); POTASSIUM RNDM,URINE 15 mmol/L (25-125); URINE SODIUM, RANDOM 29 mmol/l (40-220)
[2018-09-22 18:14] LABS: OSMOLALITY,URINE 552 mOS/kg (340-1090)
--- NOTE | 2018-09-22 18:49 | NUR ---
TUBE BLOWER NOTES PATIENT RESTING INSIDE ROOM. AWAKE, ALERT AND ORIENTED X 2, ABLE TO MOUTH WORDS. ABLE TO MAKE NEEDS KNOWN. CONTINUE ON VENT/TRACH SETTING. NO ACUTE DISTRESS AT THIS TIME. DENIES ANY PAIN OR DISCOMFORT. BULLARD CATHETER AND FLEXISEAL IN PLACE AND BOTH DRAINING WELL. MAINTAINED ASPIRATION PRECAUTION, HOB ELEVATION AT 45. MAINTAINED ISOLATION PRECAUTION. WILL ATTEMPT TO WEAN OFF PATIENT FROM VENT TO CPAP, PER DR. GUERRA. PATIENT MADE AWARE AND VERBALIZED UNDERSTANDING. PATIENT KEPT CLEAN, DRY AND COMFORTABLE. WILL ENDORSE TO INCOMING SHIFT FOR [place]. BED LOCKED AND IN LOW POSITION. BILATERAL UPPER SIDE RAILS UP AND LOCKED. CALL LIGHT WITHIN EASY REACH
--- NOTE | 2018-09-22 19:55 | NUR ---
PERSONAL CARE WORKER NOTE: RECEIVED PT ON BED ALERT AND AWAKE WITH NO APPARENT DISTRESS NOTED. PT ABLE TO MAKE HER NEEDS KNOWN, MOUTHS WORDS. COMPLAINED OF GENERALIZED PAIN, PRN PAIN MEDS WILL BE GIVEN. [facility], SETTINGS ORDERED. SATURATING WELL. BULLARD CATH AND FLEXISEAL INTACT AND PATENT, DRAINING WELL. SINUS EDDIE ON TELE MONITOR HR 57BPM. KEPT CLEAN, DRY AND COMFORTABLE. SAFETY AND FALL PRECAUTIONS OBSERVED AND MAINTAINED. WILL CONTINUE TO MONITOR PT.
--- NOTE | 2018-09-22 22:04 | NUR ---
RT PT RECEIVED TRACHED ON [place] VENT ON CHARTED SETTINGS. NO SIGNS OF DISTRESS AT THIS MOMENT. AIRWAY PATENT AND SECURED. PT SUCTIONED. PT GIVEN HHN TX. ALARMS SET AND AUDIBLE. AMBUBAG AND BACK UP TRACH AT BEDSIDE. VENT CONNECTED TO RED OUTLET. WILL CONT TO MONITOR. Addendum: 09/22/18 at 2207 by DONNA CRUZ RT Amended: Links added.
[2018-09-23] VITALS (7 sets, daily range): BP systolic 128–145; BP diastolic 47–78
[2018-09-23] MEDS: BLOOD SUGAR DIAGNOSTIC 1 EACH STRIP IN SCH ×6 (01:05→21:02)
[2018-09-23] MEDS: INSULIN REGULAR, HUMAN 100 UNIT/ML 3 ML VIAL SQ PRN ×6 (01:06→21:08)
[2018-09-23] MEDS: HYDROMORPHONE 1 MG/1 ML DISP.SYRIN IV PRN ×5 (01:06→20:06)
[2018-09-23] MEDS: IV D5W 1,000 ML IV PRN ×2 (03:08→15:02)
[2018-09-23] MEDS: IPRATROPIUM NEB FS 0.5 MG/2.5 ML AMPUL.NEB NEB SCH ×6 (03:29→23:18)
[2018-09-23] MEDS: ALBUTEROL FS 2.5 MG/3 ML VIAL.NEB NEB SCH ×6 (03:29→23:18)
[2018-09-23 06:27] LABS: BASOPHILS % (AUTO) 0.2 % (0.0-2.0); EOSINOPHILS % (AUTO) 0.6 % (0.0-6.0); HEMATOCRIT 24 % (33-45); HEMOGLOBIN 7.9 g/dL (11.5-14.8); LYMPHOCYTES # (AUTO) 1.2 /CMM (0.8-4.8); LYMPHOCYTES % (AUTO) 24.3 % (20.0-44.0); MEAN CORPUSCULAR HGB CONC 33 g/dl (31.0-36.0); MEAN CORPUSCULAR VOLUME 90 fL (82-100); MONOCYTES # (AUTO) 0.7 /CMM (0.1-1.30); NEUTROPHILS # (AUTO) 3.1 /CMM (1.8-8.9); NEUTROPHILS % (AUTO) 61.9 % (43.0-81.0); PLATELET COUNT (AUTO) 158 /CMM (150-450); RED BLOOD CELL COUNT(AUTO) 2.63 MIL/uL (4.0-5.2)
[2018-09-23 06:54] LABS: ALBUMIN 2.3 g/dL (3.4-5.0); BILIRUBIN,TOTAL 0.3 mg/dL (0.2-1.0); CALCIUM, SERUM 8.5 mg/dL (8.5-10.1); MAGNESIUM 1.6 mg/dL (1.8-2.4); PHOSPHORUS 3.7 mg/dL (2.5-4.9); POTASSIUM 2.9 mmol/L (3.5-5.1)
--- NOTE | 2018-09-23 06:59 | NUR ---
OPTICAL SYSTEMS ENGINEER NOTE: NO CHANGES NOTED THROUGHOUT THE SHIFT. NO COMPLAINTS OF PAIN OR DISCOMFORT AT THIS TIME. NO RESPIRATORY DISTRESS NOTED. [facility] VENT SETTINGS ORDERED. ON TELE MONITOR SINUS RHYTHM HR 62BPM. BULLARD CATH INTACT, DRAINED 300ML OF URINE OUTPUT. FLEXISEAL INTACT AND PATENT, DRAINING WELL. KEPT CLEAN, DRY AND COMFORTABLE. SAFETY AND FALL PRECAUTIONS OBSERVED AND MAINTAINED. WILL ENDORSE TO DAY SHIFT RN FOR CONTINUITY OF CARE.
--- NOTE | 2018-09-23 07:20 | NUR ---
RN OPENING NOTE RECEIVED PATIENT IN BED AWAKE, VERBALIZES HER NEEDS SHE CAN. A&Ox3. ON TELE MONITOR SINUS RHYTHM AND EDDIE AT TIMES. BULLARD CATHETER ON GRAVITY WITH CLEAR AND YELLOW URINE. ON FLEXISEAL. HAS A RIGHT UPPER PICC LINE, WITH D5W RUNNING AT 125 ML/HR. BED LOCKED AND ON LOWEST POSITION. CALL LIGHT WITHIN REACH. WILL CONT TO MONITOR PATIENT CLOSELY
--- NOTE | 2018-09-23 08:10 | NUR ---
pt placed on cpap mode per md orders. abg to be taken in 1 hr will continue to monitor closely Addendum: 09/23/18 at 0834 by DAYAN MANUEL RT Amended: Links added.
[2018-09-23] MEDS: ENOXAPARIN SODIUM 40 MG/0.4 ML DISP.SYRIN SQ SCH (09:14)
[2018-09-23 09:26] LABS: ABG OXYGEN SATURATION 96.6 % (92.0-98.5); ABG PH 7.412 (7.350-7.450); ABG PO2 98.3 mmHg (75.0-100.0); AaDO2 62.7 mmHg; COHb 0.4 % (0.5-1.5); MetHb 0.4 % (0.0-1.5); O2Hb 95.8 % (94.0-97.0); SITE, ABG Right Radial
[2018-09-23] MEDS: MEROPENEM 500 MG in IV NS 0.9% 100 ML IV SCH ×2 (10:59→23:15)
[2018-09-23] MEDS: Magnesium 1GM/D5W 100ML PREMIX 100 ML IV SCH ×2 (12:04→13:17)
[2018-09-23] MEDS: POTASSIUM CL. PREMIX PERIPHER. 50 ML IV SCH ×4 (12:04→18:00)
--- NOTE | 2018-09-23 13:40 | NUR ---
PT PLACED BACK ON AC MODE PER MD REQUEST. Addendum: 09/23/18 at 1350 by DAYAN MANUEL RT Amended: Links added.
--- NOTE | 2018-09-23 19:30 | NUR ---
RN CLOSING NOTE PATIENT IN BED, AWAKE AND ALERT, MOUTHS WORDS. ALL MEDS ARE GIVEN. REPLACED MAGNESIUM AND POTASSIUM. PATIENT HAS A RIGHT UPPER ARM PICC LINE, WITH D5W RUNNING AT 125 ML/HR. PATIENT ASKED FOR A PAIN MED, DILAUDID. LAST GIVEN WAS AT 1506. PATIENT IS STILL NPO, KEEP NPO PER MD ORDER. BED LOCKED AND LOWEST POSITION. CALL LIGHT WITHIN REACH. WILL ENDORSE TO NOC SHIFT RN
--- NOTE | 2018-09-23 19:30 | NUR ---
RN NOTES RECEIVED PT. AWAKE ON BED, VENT DEPENDENT, A/OX2, MOUTH WORDS, SB ON TELE MONITOR HR-58, PICC LINE IN PLACE, CALL LIGHT WITHIN REACH, [id number], CONTINUE TO MONITOR
--- NOTE | 2018-09-23 20:11 | NUR ---
RN NOTES COMPLAINED OF GENERALIZED PAIN- DILAUDID 1MG IV GIVEN ORDERED, V/S STABLE
[2018-09-24] VITALS: BP 130/62
[2018-09-24] MEDS: BLOOD SUGAR DIAGNOSTIC 1 EACH STRIP IN SCH ×6 (00:18→20:49)
[2018-09-24] MEDS: HYDROMORPHONE 1 MG/1 ML DISP.SYRIN IV PRN ×6 (00:18→21:29)
--- NOTE | 2018-09-24 00:18 | NUR ---
RN NOTES COMPLAINED OF GENERALIZED PAIN- DILAUDID 1MG IV GIVEN ORDERED, V/S STABLE
[2018-09-24] MEDS: INSULIN REGULAR, HUMAN 100 UNIT/ML 3 ML VIAL SQ PRN ×6 (00:28→20:56)
--- NOTE | 2018-09-24 01:43 | NUR ---
RT NOTE PATIENT WAS RECEIVED ON CONTINUOUS VENT SUPPORT ON NOTED SETTINGS. HHN INLINE TREATMENT WAS GIVEN , NO ADVERSE REACTION NOTED. PRN SUCTION WAS DONE. TRACH PATENT PATENT AND SECURED. ALARMS ARE ON AND AUDIBLE. NO TRESP
[2018-09-24] MEDS: IPRATROPIUM NEB FS 0.5 MG/2.5 ML AMPUL.NEB NEB SCH ×6 (03:21→23:24)
[2018-09-24] MEDS: ALBUTEROL FS 2.5 MG/3 ML VIAL.NEB NEB SCH ×6 (03:21→23:24)
[2018-09-24 04:00] VITALS: BP 126/58
--- NOTE | 2018-09-24 05:13 | NUR ---
RN NOTES COMPLAINED OF GENERALIZED PAIN- DILAUDID 1MG IV GIVEN ORDERED, V/S STABLE
[2018-09-24] MEDS: IV D5W 1,000 ML IV PRN ×2 (05:39→17:15)
--- NOTE | 2018-09-24 06:28 | NUR ---
RN NOTES SLEEPING BUTA ROUSABLE, NOT IN DISTRESS, RECTAL TUBE IN PLACE, PIETER PAIN , [id number], MORNING CARE RENDERED
--- NOTE | 2018-09-24 07:30 | NUR ---
RN NOTES RECEIVED PATIENT IN BED, A/0 X2-3, ABLE TO RESPOND VERBALLY, ABLE TO MAKE NEEDS KNOWN THRU MOUTHING OF WORDS, ON VENT OF PRESCRIBED SETTING, TOLERATING WELL, NO SOB NOTED AT THIS TIME. PATIENT WITH COMPLAINTSOF PAIN AT THIS TIME 05/10- WILL ADMINISTER DUE PRN PAIN MEDICATION FOR PAIN. SINUS RHYTHM WITH HR 60 ON THE MONITORAT. BULLARD CATHETER INTACT DRAINING TO CLEAR AND YELLOW URINE VIA GRAVITY. FLEXISEAL IN PLACE DRAINING TO BROWNISH STOOL. RIGHT UPPER PICC LINE C/D/I/P ON FLUSHING, WITH D5W RUNNING AT 125 ML/HR. CALL LIGHT PLACED WITHIN EASY REACH. BED LOCKED AND ON LOWEST POSITION. WILL CONT TO MONITOR PATIENT CLOSELY
[2018-09-24 08:00] VITALS: BP 158/84
[2018-09-24] MEDS: ENOXAPARIN SODIUM 40 MG/0.4 ML DISP.SYRIN SQ SCH (09:13)
[2018-09-24] MEDS: MEROPENEM 500 MG in IV NS 0.9% 100 ML IV SCH ×2 (11:20→22:07)
[2018-09-24 12:00] VITALS: BP 156/82
[2018-09-24 16:00] VITALS: BP 147/86
[2018-09-24] MEDS ORDERED: LORAZEPAM INJ 2 MG/ML VIAL IV PRN (17:00)
[2018-09-24] MEDS: PANTOPRAZOLE 40 MG VIAL IV SCH (17:14)
[2018-09-24] MEDS: LIDOCAINE 5% (PATCH) 1 EA PATCH TP SCH (17:14)
--- NOTE | 2018-09-24 19:32 | NUR ---
RT NOTE: RECEIVED TRACH [facility] AND PLACED ON AC MODE DURING NIGHT PER MD'S ORDERS. TRACH IS PATENT AND SECURED. QUALITY CONTROL ASSOCIATE DONE. AMBU BAG @ BEDSIDE. SX DONE PRN. ALARMS ON AND AUDIBLE. BREATHING TX GIVEN Q4 PER MD'S ORDERS. NO RESP DISTRESS NOTED. WILL CONT TO MONITOR PT. Addendum: 09/25/18 at 0434 by JOHNNIE FARRELL RT Amended: Links added.
--- NOTE | 2018-09-24 19:45 | NUR ---
POST SPLITTER NOTES, RECEIVED PATIENT IN BED, AWAKE A/O X3, , ABLE TO MOUTH WORDS TO LET NEEDS KNOWN, ON MECHANICAL VENTILATOR TOLERATING SETTINGS WELL, NO SOB NOTED AT THIS TIME OR ACUTE DISTRESS NOTED, NO C/O PAIN AT THIS TIME, SINUS RHYTHM WITH HR 70S ON THE MONITOR AT THIS TIME, BULLARD CATHETER PATENT AND INTACT DRAINING CLEAR AND YELLOW URINE VIA GRAVITY, FLEXISEAL IN PLACE DRAINING BROWNISH STOOL, DIXIE PICC LINE PATENT AND INTACT, WITH D5W RUNNING AT 125 ML/HR, INFUSING WELL AND PATIENT TOLERATED WELL, CALL LIGHT W/I REACH, BED LOCKED AND LOWEST POSITION, SUCTION PROVIDED AT THIS TIME, WILL CONTINUE TO MONITOR CLOSELY
--- NOTE | 2018-09-24 19:45 | NUR ---
RN NOTES ENDORSED FOR CONTINUITY OF CARE. NO ACUTE CHANGES WITHIN THE SHIFT. ALL NURSING NEEDS ANTICIPATED AND ATTENDED. SAFETY MEASURES, ASPIRATION PRECAUTION IN PLACE AT ALL TIMES. CALL LIGHT WITHIN REACH
[2018-09-24 20:00] VITALS: BP 134/65
--- NOTE | 2018-09-24 21:00 | NUR ---
LENS INSPECTOR NOTES, INFORMED PATIENT ABOUT THE PROTOCOL OF FACILITY REGARDING SKIN ISSUES AND SHE REFUSED PICTURES, EXPLAINED RISKS AND BENEFITS, STILL REFUSED.
[2018-09-25] VITALS: BP 132/64
[2018-09-25] MEDS: BLOOD SUGAR DIAGNOSTIC 1 EACH STRIP IN SCH ×6 (00:45→21:01)
[2018-09-25] MEDS: INSULIN REGULAR, HUMAN 100 UNIT/ML 3 ML VIAL SQ PRN ×5 (00:46→17:53)
[2018-09-25] MEDS: HYDROMORPHONE 1 MG/1 ML DISP.SYRIN IV PRN ×5 (01:34→19:59)
[2018-09-25] MEDS: ALBUTEROL FS 2.5 MG/3 ML VIAL.NEB NEB SCH ×4 (03:27→15:30)
[2018-09-25] MEDS: IPRATROPIUM NEB FS 0.5 MG/2.5 ML AMPUL.NEB NEB SCH ×5 (03:27→19:43)
[2018-09-25 04:00] VITALS: BP 127/90
[2018-09-25] MEDS: IV D5W 1,000 ML IV PRN (05:22)
[2018-09-25 06:35] LABS: BASOPHILS % (AUTO) 0.5 % (0.0-2.0); EOSINOPHILS % (AUTO) 1.8 % (0.0-6.0); HEMATOCRIT 23 % (33-45); HEMOGLOBIN 7.7 g/dL (11.5-14.8); LYMPHOCYTES # (AUTO) 1.7 /CMM (0.8-4.8); MEAN CORPUSCULAR HGB CONC 33 g/dl (31.0-36.0); MEAN CORPUSCULAR VOLUME 91 fL (82-100); MONOCYTES # (AUTO) 0.7 /CMM (0.1-1.30); NEUTROPHILS # (AUTO) 3.3 /CMM (1.8-8.9); NEUTROPHILS % (AUTO) 56.7 % (43.0-81.0); PLATELET COUNT (AUTO) 248 /CMM (150-450); RED BLOOD CELL COUNT(AUTO) 2.54 MIL/uL (4.0-5.2); WHITE BLOOD COUNT (AUTO) 5.9 K/uL (4.3-11.0)
--- NOTE | 2018-09-25 07:00 | NUR ---
GRANITE FABRICATOR ENDING NOTES, PATIENT SLEEPING AT THIS TIME, ABLE TO MOUTH WORDS TO LET NEEDS KNOWN, ON MECHANICAL VENTILATOR TOLERATING SETTINGS WELL, NO SOB NOTED AT THIS TIME OR ACUTE DISTRESS NOTED, DILAUDID ADMINISTERED Q4HR PER PATIENT REQUEST, SINUS RHYTHM WITH HR 60S ON THE MONITOR AT THIS TIME, BULLARD CATHETER PATENT AND INTACT DRAINING CLEAR AND YELLOW URINE VIA GRAVITY, FLEXISEAL IN PLACE DRAINING BROWNISH STOOL, DIXIE PICC LINE PATENT AND INTACT, WITH D5W RUNNING AT 125 ML/HR, INFUSING WELL AND PATIENT TOLERATED WELL, NO SIGNIFICANT CHANGE IN CONDITION THROUGHOUT THE NIGHT, CALL LIGHT W/I REACH, BED LOCKED AND LOWEST POSITION, WILL ENDORSE CONTINUITY OF CARE TO ONCOMING NURSE.
--- NOTE | 2018-09-25 07:15 | NUR ---
RN OPENING NOTE RECEIVED PATIENT IN BED, AWAKE AND ALERT, MOUTHS WORDS. PATIENT ON VENT, RT IN THE ROOM, TOLERATING WELL AT THIS TIME. ON BULLARD CATHETER WITH CLEAR AND YELLOW URINE. PATIENT ALSO IN FLEXISEAL. NPO FOR NOW, HAS A RIGHT UPPER ARM PICC LINE WITH D5W RUNNING AT 125 ML/HR. PATIENT'S BED LOCKED AND ON LOW POSITION. CALL LIGHT WITHIN REACH. WILL CONTINUE TO MONITOR THROUGHOUT THE SHIFT
--- NOTE | 2018-09-25 07:22 | NUR ---
RT PATIENT REC'D TRACHED ON [facility] VENT WITH ORDERED SETTINGS LISANDRO WELL. VENT ALARMS CHECKED + AUDIBLE. PATIENT TRACH SECURE AND IN PROPER POSITION. AIRWAY CHECKED AND PATENT. PATIENT SUCTIONED WITH SMALL/MOD AMT OF PALE SEMITHICK SECRETIONS. B/S DIM COARSE. PATIENT APPEARS COMFORTABLE AND IN NO DISTRESS AT THIS TIME. VENT PLUGGED INTO RED OUTLET. AMBU BAG AT [facility]. CONT CURRENT PLAN OF RESP CARE. Addendum: 09/25/18 at 1025 by GIO MCMILLAN RT Amended: Links added.
[2018-09-25 08:00] VITALS: BP 174/103
[2018-09-25 08:05] LABS: BAND % (MANUAL) 3 % (0.0-5.0); EOSINOPHILS % (MANUAL) 3 % (0-4); LYMPHOCYTES % (MANUAL) 30 % (16-48); MONOCYTES % (MANUAL) 9 % (0-11.0); NEUTROPHILS % (MANUAL) 55 (42-76)
[2018-09-25] MEDS: ENOXAPARIN SODIUM 40 MG/0.4 ML DISP.SYRIN SQ SCH (09:10)
--- NOTE | 2018-09-25 09:20 | NUR ---
PATIENT UNABLE TO LISANDRO WEANING TRIAL TODAY WITH NOTED DISTRESS AND HIGH RR AND HR. PATIENT PLACED BACK ON PREVIOUS AC SETTINGS FOR SAFETY. RN AWARE. Addendum: 09/25/18 at 1018 by GIO MCMILLAN RT Amended: Links added.
--- NOTE | 2018-09-25 10:00 | NUR ---
RN NOTE PATIENT WAS ANXIOUS AND WAS ASKING FOR PAIN MED. MORNING VITALS WERE: RR 33. RT MADE AWARE. VENT SETTINGS WAS CHANGED BACK TO AC SETTING FOR SAFETY. WILL GIVE DILAUDID FOR SEVERE PAIN.
[2018-09-25] MEDS: MEROPENEM 500 MG in IV NS 0.9% 100 ML IV SCH (11:15)
[2018-09-25 12:00] VITALS: BP 127/95
[2018-09-25 12:14] LABS: CALCIUM, SERUM 8.6 mg/dL (8.5-10.1); CREATININE 0.9 mg/dL (0.6-1.3); MAGNESIUM 1.5 mg/dL (1.8-2.4); PHOSPHORUS 2.9 mg/dL (2.5-4.9); POTASSIUM 3.3 mmol/L (3.5-5.1)
[2018-09-25 16:00] VITALS: BP 130/72
[2018-09-25] MEDS: LIDOCAINE 5% (PATCH) 1 EA PATCH TP SCH ×2 (17:00→17:13)
[2018-09-25] MEDS: PANTOPRAZOLE 40 MG VIAL IV SCH (17:13)
--- NOTE | 2018-09-25 19:42 | NUR ---
RN CLOSING NOTE PATIENT IN BED, AWAKE AND ALERT, MOUTHS WORDS. PATIENT ON VENT, TOLERATING WELL AT THIS TIME. ON BULLARD CATHETER WITH CLEAR AND YELLOW URINE. PATIENT ALSO IN FLEXISEAL. NPO FOR NOW, HAS A RIGHT UPPER ARM PICC LINE WITH D5W RUNNING AT 125 ML/HR. WAS GIVEN DILAUDID, LAST GIVEN AT 1530. PATIENT WILL BE DISCHARGED TONIGHT. DISCHARGE PAPERS ALREADY PRINTED AND RELAYED TO NOC SHIFT. PATIENT'S BED LOCKED AND ON LOW POSITION. CALL LIGHT WITHIN REACH.
--- NOTE | 2018-09-25 19:45 | NUR ---
BUFFER OPERATOR NOTES, RECEIVED PATIENT IN BED, AWAKE A/O X3, , ABLE TO MOUTH WORDS TO LET NEEDS KNOWN, ON MECHANICAL VENTILATOR TOLERATING SETTINGS WELL, NO SOB NOTED AT THIS TIME OR ACUTE DISTRESS NOTED, C/O PAIN AT THIS TIME, WILL ADMINISTER MED ORDERED, SINUS RHYTHM WITH HR 80-90S ON THE MONITOR AT THIS TIME, BULLARD CATHETER PATENT AND INTACT DRAINING CLEAR AND YELLOW URINE VIA GRAVITY, FLEXISEAL IN PLACE DRAINING BROWNISH STOOL, DIXIE PICC LINE PATENT AND INTACT, WITH D5W RUNNING AT 125 ML/HR, INFUSING WELL AND PATIENT TOLERATED WELL, CALL LIGHT W/I REACH, BED LOCKED AND LOWEST POSITION, SUCTION PROVIDED AT THIS TIME, WILL CONTINUE TO MONITOR CLOSELY, SHES GOING TO [facility], REPORT GIVEN TO MEY MORRISSEY, AND PATIENT IS GOING TO ROOM 3344, TRANSPORTATION WILL BE HERE AROUND 2014.
[2018-09-25 20:00] VITALS: BP 122/73
--- NOTE | 2018-09-25 21:10 | NUR ---
DIRECTOR SHOPPER MARKETING NOTES, PATIENT AWAKE AWAKE A/O X3, AMBULANCE HERE AT THIS TIME, WITH 2EMTS AND RT TO TAKE PATIENT TO [facility], REPORT GIVEN TO RT, AND PATIENT IS LEAVING IN STABLE CONDITION, AWAKE A/O ABLE TO MOUTH WORDS AND LET NEEDS KNOW, PICC LINE IN DIXIE WITH 3 LUMENS PATENT AND INTACT, FLEXISEAL RECTAL TUBE IN PLACED WELL F/C BOTH EMPTY PRIOR TO TRANSFER, VS 122/67, 90, 18, 100, 98.7, 0/10.
--- NOTE | 2018-09-25 21:25 | NUR ---
HAND TUFTER NOTES, PATIENT LEFT AT THIS TIME IN STABLE CONDITION IN ACCOMPANIED BY 2 JUNIOR COPYWRITER AND RT, BREATHING EVEN AND UNLABORED, WITH OPTIMAL O2 SAT LEVEL 100%, NO SOB/ACUTE DISTRESS NOTED.
== END 2018-09-25 22:52 | disposition short-term general hospital (02) | DRG 207 ==
LOC: ER 09:29 → TELE1 13:17
PROVIDERS: ATTEND Registered Nurse
PROC: 05H533Z Insertion of Infusion Device into Right Subclavian Vein, Percutaneous Approach (ICD-10-PCS; 2018-09-18)
PROC: B546ZZA Ultrasonography of Right Subclavian Vein, Guidance (ICD-10-PCS; 2018-09-18)
PROC: 5A1955Z Respiratory Ventilation, Greater than 96 Consecutive Hours (ICD-10-PCS; principal; 2018-09-20)
DX: J96.22 Acute and chronic respiratory failure with hypercapnia (principal); N17.0 Acute kidney failure with tubular necrosis; G92 Toxic encephalopathy; Z94.0 Kidney transplant status; N39.0 Urinary tract infection, site not specified; E44.1 Mild protein-calorie malnutrition; Z68.41 Body mass index [BMI] 40.0-44.9, adult; G61.0 Guillain-Barre syndrome; E66.2 Morbid (severe) obesity with alveolar hypoventilation; J96.21 Acute and chronic respiratory failure with hypoxia; I13.10 Hypertensive heart and chronic kidney disease without heart failure, with stage 1 through stage 4 chronic kidney disease, or unspecified chronic kidney disease; N18.9 Chronic kidney disease, unspecified; Z86.718 Personal history of other venous thrombosis and embolism; E11.22 Type 2 diabetes mellitus with diabetic chronic kidney disease; E87.6 Hypokalemia; G89.4 Chronic pain syndrome; Z88.0 Allergy status to penicillin; Z91.018 Allergy to other foods; Z79.82 Long term (current) use of aspirin; Z79.4 Long term (current) use of insulin; Z79.899 Other long term (current) drug therapy; Z86.711 Personal history of pulmonary embolism; Z93.0 Tracheostomy status; F41.9 Anxiety disorder, unspecified; F32.9 Major depressive disorder, single episode, unspecified; Z79.01 Long term (current) use of anticoagulants; E11.65 Type 2 diabetes mellitus with hyperglycemia; D64.9 Anemia, unspecified
CPT/HCPCS: 31720; 36415; 36569; 36600; 71045-TC; 80048-TC; 80053-TC; 80061-TC; 80076-TC; 81000-TC; 82272-TC; 82436-TC; 82550-TC; 82570-TC; 82728-TC; 82803-TC; 82962-TC; 83540-TC; 83605-TC; 83735-TC; 83935-TC; 83970; 84100-TC; 84133-TC; 84155; 84155-TC; 84165; 84300-TC; 84443-TC; 84484-TC; 85025-TC; 85730-TC; 87040-TC; 87081-TC; 87086-TC; 87186-TC; 92611-TC; 93970-TC; 94002-TC; 94003-TC; 94640-TC; 94760-TC; 94762-TC; 94799-TC; A4216; A6402; A7526; C1751; C9113; G0378; J0696; J1170; J1650; J1815; J1956; J2185; J2405; J3475; J3480; J3490; J7030; J7060; J7070

== ENCOUNTER 2021-01-21 03:47 | Inpatient (IN) | payer MEDICARE, OTHER ==
[~2021-01-21] VITALS: Ht 167.6 cm; Wt 153.1 kg
[~2021-01-21 03:47] MED LIST changes: +ACID1TAB12 PO; -ALBUT2 NEB; +ASCO-373 GT; -ASCO500T8 PO; +ASPI-1169 GT; -ASPI-1169 PO; +ATOR20TA GT; -ATOR20TA PO; +BLOO-668 IN; +CALC500T13 PO; -CEFT1VIA15 IV; +CHOL100044 GT; +DIPH25CA83 GT; -DIPH25CA83 PO; +FAMO20TA80 GT; -FAMO20TA80 PO; +FURO20TA4 GT; -FURO20TA4 PO; +HYDR-4384 PO; +HYDR10SY16 PO; +LACT10SO29 GT; +LEVE250T2 GT; +LEVO750T21 PO; +MAGN296S72 PO; +MAGN400O6 PO; +METF-440 PO; +MULT-594 GT; -MULT-594 PO; +ONDA4TAB5 PO; +POTA20TA83 GT; -POTA20TA83 PO; +PREG100C GT; -RIVA10TA PO; +SENN-261 GT; +SERT-437 PO; -SERT25TA5 PO; +TRAM50TA2 PO
[2021-01-21 04:00] VITALS: BP 143/65
--- NOTE | 2021-01-21 05:44 | NUR ---
RT NOTE PT RECEIVED TRACHED ON MECHANICAL VENTILATION. SHILEY [address] AMBU BAG @ BEDSIDE. ALARMS ON AND AUDIBLE. VENT PLUGGED TO RED OUTLET. PT IS AWAKE/ALERT AND ABLE TO FOLLOW COMMANDS. NO RESPIRATORY DISTRESS NOTED. PT SETTINGS ARE AQC 18, 500, 50%, +5. WILL MONITOR. Addendum: 01/21/21 at 0546 by JOSE YU RT Amended: Links added.
[2021-01-21] MEDS ORDERED: ZOLPIDEM TARTRATE 5 MG TABLET PO PRN (06:00)
[2021-01-21] MEDS ORDERED: MAG HYDROX/AL HYDROX/SIMETH 30 ML UDC PO PRN (06:00)
[2021-01-21] MEDS ORDERED: Z GUARD REMEDY 2 OZ OINT TP PRN (06:00)
[2021-01-21] MEDS ORDERED: ONDANSETRON HCL/PF 4 MG/2 ML VIAL IVP PRN (06:00)
[2021-01-21] MEDS ORDERED: MAGNESIUM HYDROXIDE 30 ML UDC PO PRN (06:00)
[2021-01-21] MEDS ORDERED: IV D5/0.45 NACL 1,000 ML IV PRN (06:00)
[2021-01-21] MEDS ORDERED: CEFTRIAXONE 1 G VIAL ONE (06:45)
[2021-01-21] MEDS: CEFTRIAXONE 1 G in IV D5W 50 ML IV SCH (06:50)
--- NOTE | 2021-01-21 07:50 | NUR ---
SCRAP IRON CUTTER OPENING NOTES RECEIVED PATIENT RESTING IN BED. PATIENT IS A/O X 0. PATIENT IS ON VENTILATOR AC 18, TV 500 FIO2 50 PEEP +5. NO SIGNS OF DISTRESS NOTED. PATIENT IS ON TELE MONITOR SHOWING SR WITH BBB. PATIENT IS NPO AT THIS TIME. PATIENT HAS IV ACCESS IO RIGHT LOWER LEG # 20 GAUGE PATENT AND INTACT. SAFETY MEASURES ARE IN PLACE BED LOW LOCKED SIDE RAILS UP CALL LIGHT WITHIN REACH. WILL CONTINUE TO MONITOR
[2021-01-21] MEDS ORDERED: MIDO10TA GT (08:32)
[2021-01-21] MEDS ORDERED: OXYC-128 GT (08:32)
[2021-01-21] MEDS: PANTOPRAZOLE 40 MG TABLET.DR PO SCH (08:40)
[2021-01-21] MEDS: ENOXAPARIN SODIUM 40 MG/0.4 ML DISP.SYRIN SQ SCH (08:41)
[2021-01-21] MEDS ORDERED: FLUT9.9S16 NS (09:07)
[2021-01-21] MEDS ORDERED: LEVAQUIN GT (09:07)
[2021-01-21] MEDS ORDERED: METH2.5T GT (09:07)
[2021-01-21] MEDS ORDERED: CETI-90 GT (09:07)
[2021-01-21] MEDS ORDERED: SERT50TA GT (09:07)
[2021-01-21] MEDS ORDERED: ACET-2605 GT (09:07)
[2021-01-21] MEDS ORDERED: ALLO100T GT (09:07)
[2021-01-21] MEDS ORDERED: POTA20PA41 GT (09:07)
[2021-01-21] MEDS ORDERED: GABA-532 GT (09:07)
[2021-01-21] MEDS ORDERED: MAGN400T8 GT (09:07)
[2021-01-21] MEDS ORDERED: HYDR-4076 GT (09:07)
[2021-01-21] MEDS ORDERED: EPOE1VIA6 IJ (09:07)
[2021-01-21] MEDS ORDERED: MAGN400O6 GT (09:07)
[2021-01-21] MEDS ORDERED: DORZ10DR10 OP (09:07)
[2021-01-21] MEDS ORDERED: AMLO5TAB4 GT (09:07)
[2021-01-21] MEDS ORDERED: INSU100V10 SQ (09:07)
[2021-01-21] MEDS ORDERED: BUDE1AMP IH (09:07)
[2021-01-21] MEDS ORDERED: POLY17PO4 GT (09:07)
--- NOTE | 2021-01-21 10:34 | NUR ---
WOUND CARE CONSULT: UNABLE TO FULLY ASSESS PT AT THIS TIME DUE TO PT'S GIRTH. LIMITED ASSESSMENT THIS AM. PT NOTED TO HAVE SCARRING TO ENTIRE SACRAL, BUTTOCK AND POSTERIOR THIGH AREAS WITH OPEN SKIN AND BLEEDING WELL INCONTINENCE OF STOOL. BULLARD CATH NOTED. RECOMMEND SURGICAL CONSULT. DR BOJORQUEZ NOTIFIED. [facility] ETS AIR BED ORDERED. RECOMMENDATIONS MADE FOR SKIN PROTECTION. DISCUSSED WITH NURSING STAFF. MD IN AGREEMENT WITH PLAN OF CARE.
--- NOTE | 2021-01-21 11:33 | NUR ---
RN NOTE PATIENT HAS RIGHT UPPER ARM MIDLINE PLACED. 18 GAUGE, PATENT AND INTACT. WILL CONTINUE TO MONITOR
[2021-01-21 12:06] LABS: BILIRUBIN,URINE NEGATIVE (NEGATIVE); COLOR,URINE YELLOW (YELLOW); LEUKOCYTE ESTERASE ,URINE SMALL (NEGATIVE); NITRITE, URINE NEGATIVE (NEGATIVE); PROTEIN,URINE 100 mg/dl (NEGATIVE); UGLUCOSE NEGATIVE (NEGATIVE); UROBILINOGEN,URINE 0.2 EU/dL (0.2)
[2021-01-21 12:40] LABS: BASOPHILS % (AUTO) 0.1 % (0.0-2.0); EOSINOPHILS % (AUTO) 0.6 % (0.0-6.0); HEMATOCRIT 23 % (33-45); HEMOGLOBIN 7.3 g/dL (11.5-14.8); LYMPHOCYTES # (AUTO) 0.6 /CMM (0.8-4.8); MEAN CORPUSCULAR HGB CONC 32 g/dl (31.0-36.0); MEAN CORPUSCULAR VOLUME 95 fL (82-100); MONOCYTES # (AUTO) 0.2 /CMM (0.1-1.30); MONOCYTES % (AUTO) 1.1 % (2.0-12.0); NEUTROPHILS % (AUTO) 94.2 % (43.0-81.0); PLATELET COUNT (AUTO) 209 /CMM (150-450); RED BLOOD CELL COUNT(AUTO) 2.39 MIL/uL (4.0-5.2); WHITE BLOOD COUNT (AUTO) 15.9 K/uL (4.3-11.0)
[2021-01-21 12:45] LABS: BACTERIA,URINE Few /HPF (None Seen); SQUAMOUS EPITHELIAL CELL,UR Few /HPF (None Seen)
[2021-01-21 12:56] LABS: BILIRUBIN,TOTAL 0.7 mg/dL (0.2-1.0); CALCIUM, SERUM 8.8 mg/dL (8.5-10.1); POTASSIUM 4.4 mmol/L (3.5-5.1); TOTAL PROTEIN, SERUM 6.5 g/dL (6.4-8.2)
[2021-01-21 13:04] LABS: THYROID STIMULATING HORMONE 0.517 uIU/mL (0.358-3.74)
--- NOTE | 2021-01-21 14:36 | NUR ---
RN NOTE PATIENT COMPLAINED OF SEVERE PAIN 04/10. MD NOTIFIED WITH NEW ORDER FOR 4MG IV MORPHINE Q2HRS PRN SEVERE PAIN . WILL CONTINUE TO MONITOR
[2021-01-21] MEDS: MORPHINE SULFATE INJ 4 MG/ML DISP.SYRIN IV PRN ×2 (14:40→19:54)
--- NOTE | 2021-01-21 15:00 | NUR ---
RN NOTE IO ACCESS WAS REMOVED WITH SUPERVISION FROM XU BROOKS, PATIENT TOLERATED WELL. IV ACCESS ON RIGHT UPPER ARM MIDLINE
[2021-01-21] MEDS: THERAHONEY GEL 1.5 OZ TUBE TP SCH (17:45)
--- NOTE | 2021-01-21 18:28 | NUR ---
CAR TOP BOLTER CLOSING NOTES PATIENT RESTING IN BED. PATIENT IS A/O X 2. PATIENT IS ON VENTILATOR AC 18, TV 500 FIO2 50 PEEP +5. NO SIGNS OF DISTRESS NOTED. PATIENT IS ON TELE MONITOR SHOWING SR WITH BBB. PATIENT IS NPO AT THIS TIME. PATIENT HAS IV ACCESS RIGHT UPPER ARM MIDLINE 18# GAUGE PATENT AND INTACT RUNNING D5 1/2 NS @ 75ML/HR. ALL MEDICATIONS GIVEN ORDER. MEDICATION RECONCILIATION NOT COMPLETED, MD NOTIFIED. WOUND TREATMENT PERFORMED SAFETY MEASURES ARE IN PLACE BED LOW LOCKED SIDE RAILS UP CALL LIGHT WITHIN REACH. WILL ENDORSE TO ONCOMING SHIFT
[2021-01-21 20:00] VITALS: BP 134/59
--- NOTE | 2021-01-21 20:00 | NUR ---
TELE OPENING NOTES PATIENT RESTING IN BED, ALERT/ORIENTED X 2, PATIENT ABLE TO MAKE NEEDS KNOWN. PATIENT REPORTING 9/10 PAIN, MORPHINE 4MG IV GIVEN ORDERED. PATIENT ON VENTILATOR AC 18, TV 500, FIO2 50, PEEP +5, NO S/S OF DISTRESS OR SHORTNESS OF BREATH NOTED. RIGHT UPPER MIDLINE #18G INTACT AND RUNNING D5 1/2 NS @ 75 ML/HR. SAFETY MEASURES IN PLACE, CALL LIGHT WITHIN REACH, BED LOCKED IN LOWEST POSITION, BED ALARM ON. WILL CONTINUE TO MONITOR
--- NOTE | 2021-01-21 20:45 | NUR ---
CANDLE POURER NOTES SPOKE TO PATIENT'S SISTER, JONATHAN ALVES OVER THE PHONE TO RECEIVE CONSENT FOR SERIAL DEBRIDEMENT OF BILATERAL BUTTOCKS AND THIGHS, ANESTHESIA, AND BLOOD TRANSFUSION. CONSENT RECEIVED AND VERIFIED BY NADEEM CHARGE NURSE. CONSENT FORMS SIGNED BY RN AND PLACED IN CHART
[2021-01-22] VITALS (9 sets, daily range): BP systolic 109–137; BP diastolic 45–72
[2021-01-22] MEDS ORDERED: cetrizine 10 MG TABLET GT PRN
[2021-01-22] MEDS ORDERED: BACLOFEN (10 MG) 10 MG TABLET PO PRN
[2021-01-22] MEDS ORDERED: hydrALAZINE HCL 25 MG TABLET GT PRN
[2021-01-22] MEDS ORDERED: CLONIDINE HCL 0.1 MG TABLET PO PRN
[2021-01-22] MEDS: LACTULOSE 10 G/15 ML UDC (PYXIS) GT SCH ×4 (00:40→16:47)
[2021-01-22] MEDS: CEFTRIAXONE 1 G in IV D5W 50 ML IV SCH (06:37)
--- NOTE | 2021-01-22 07:00 | NUR ---
NURSE MANAGER CLOSING NOTES PATIENT RESTING IN BED, ALERT/ORIENTED X 1-2, PATIENT ABLE TO MAKE NEEDS KNOWN. NO REPORTS OF PAIN AT THIS TIME. PATIENT ON VENTILATOR AC 18, TV 500, FIO2 50, PEEP +5, NO S/S OF DISTRESS OR SHORTNESS OF BREATH NOTED. RIGHT UPPER MIDLINE #18G INTACT AND RUNNING D5 1/2 NS @ 75 ML/HR. MEDICATIONS GIVEN ORDERED AND PATIENT NEEDS MET THROUGHOUT SHIFT, WOUND TREATMENT DONE. SAFETY MEASURES IN PLACE, CALL LIGHT WITHIN REACH, BED LOCKED IN LOWEST POSITION, BED ALARM ON. WILL ENDORSE TO DAY SHIFT NURSE FOR CONTINUITY OF CARE
[2021-01-22] MEDS: AZITHROMYCIN 500 MG in IV D5W 250 ML IV SCH ×2 (07:15→07:16)
[2021-01-22 07:30] LABS: CALCIUM, SERUM 8.7 mg/dL (8.5-10.1); CREATININE 1.9 mg/dL (0.6-1.3); PHOSPHORUS 3.7 mg/dL (2.5-4.9); POTASSIUM 4.2 mmol/L (3.5-5.1)
--- NOTE | 2021-01-22 07:46 | NUR ---
RN OPENING NOTE RECEIVED PATIENT IN BED, AO X 1-2, NO S/S OF DISTRESS OBSERVED. ABLE TO RESPONDS ALL STIMULI. SKIN IS WARM TO TOUCH KEEP CLEAN/DRY, INTACT MIDLINE SITE ON LEFT UPPER ARM. PATIENT IN TRACH, RESPIRATORY EVEN AND UNLABORED WITH VENTILATOR, NO DISTRESS OBSERVED. KEPT ELEVATED HOB FOR ENSURE AIRWAY AND ASPIRATION PRECAUTION, ALSO LOWEST BED POSITION FOR SAFETY. CALL LIGHT WITHIN REACH, WILL CONTINUE TO MONITOR.
[2021-01-22] MEDS: ASPIRIN 81 MG TAB.CHEW GT SCH (08:07)
[2021-01-22] MEDS: POLYETHYLENE GLYCOL 3350 17 GM POWD.PACK GT SCH (08:07)
[2021-01-22] MEDS: FAMOTIDINE (20 MG) 20 MG TABLET GT SCH ×2 (08:08→16:47)
[2021-01-22] MEDS: AMLODIPINE BESYLATE 5 MG TABLET GT SCH ×2 (08:08→21:28)
[2021-01-22] MEDS: ACETAMINOPHEN 325 MG TABLET PO PRN (08:08)
[2021-01-22] MEDS: LEVETIRACETAM (250 MG) 250 MG TABLET PO SCH ×2 (08:08→16:47)
[2021-01-22] MEDS: POTASSIUM CHLORIDE 20 MEQ TAB.PRT.SR PO SCH (08:08)
[2021-01-22] MEDS: MAGNESIUM OXIDE 400 MG TABLET GT SCH (08:08)
[2021-01-22] MEDS: PANTOPRAZOLE 40 MG TABLET.DR PO SCH (08:08)
[2021-01-22] MEDS: ALLOPURINOL 100 MG TABLET GT SCH ×2 (08:11→16:47)
[2021-01-22] MEDS: GABAPENTIN 100 MG CAPSULE GT SCH ×2 (08:11→16:48)
[2021-01-22] MEDS: THERAHONEY GEL 1.5 OZ TUBE TP SCH (08:12)
[2021-01-22] MEDS: FLUTICASONE PROPIONATE 16 GM BOTTLE NS SCH ×2 (08:21→16:49)
[2021-01-22] MEDS: BUDESONIDE RESPULE INH 0.25 MG/2 ML AMPUL.NEB NEB SCH ×2 (08:46→19:56)
[2021-01-22 08:47] LABS: BASOPHILS % (AUTO) 0.2 % (0.0-2.0); EOSINOPHILS % (AUTO) 2.3 % (0.0-6.0); HEMATOCRIT 21 % (33-45); LYMPHOCYTES # (AUTO) 1.1 K/uL (0.8-4.8); LYMPHOCYTES % (AUTO) 8.8 % (20.0-44.0); MEAN CORPUSCULAR HGB CONC 31 g/dl (31.0-36.0); MEAN CORPUSCULAR VOLUME 95 fL (82-100); MONOCYTES # (AUTO) 0.2 K/uL (0.1-1.30); MONOCYTES % (AUTO) 1.6 % (2.0-12.0); NEUTROPHILS # (AUTO) 11.1 K/uL (1.8-8.9); NEUTROPHILS % (AUTO) 87.1 % (43.0-81.0); PLATELET COUNT (AUTO) 194 K/uL (150-450); RED BLOOD CELL COUNT(AUTO) 2.25 MIL/uL (4.0-5.2); WHITE BLOOD COUNT (AUTO) 12.8 K/uL (4.3-11.0)
[2021-01-22 08:56] LABS: HEMOGLOBIN 6.6 g/dL (11.5-14.8)
[2021-01-22] MEDS: ENOXAPARIN SODIUM 40 MG/0.4 ML DISP.SYRIN SQ SCH (09:00)
[2021-01-22] MEDS ORDERED: FUROSEMIDE 20 MG TABLET GT SCH (09:00)
--- NOTE | 2021-01-22 09:00 | NUR ---
PATIENT HGB LEVEL 6.6 THIS MORNING, WILL HOLD LOVENOX.
[2021-01-22 10:30] LABS: BAND % (MANUAL) 1 % (0.0-5.0); EOSINOPHILS % (MANUAL) 2 % (0-4); LYMPHOCYTES % (MANUAL) 9 % (16-48); NEUTROPHILS % (MANUAL) 88 (42-76)
--- NOTE | 2021-01-22 18:30 | NUR ---
RN CLOSING NOTE PATIENT IN BED, NO S/S OF DISTRESS OBSERVED. SKIN IS WARM TO TOUCH,KEEP CLEAN/DRY WOUND DRESSING CHANGE PROVIDED. PATIENT HGB 6.6 TODAY AND STARTED BLOOD TRANSFUSION, NO S/S ADVERSE REACTION OBSERVED. PATIENT IN TRACH, RESPIRATORY EVEN AND UNLABORED WITH VENTILATOR. PATIENT IN G TUBE MD MADE AWARE BUT NO FORMULA ORDER YET. KEPT ELEVATED HOB FOR ENSURE AIRWAY AND ASPIRATION PRECAUTION, ALSO LOWEST BED POSITION FOR SAFETY. CALL LIGHT WITHIN REACH, WILL ENDORSE PROGRAMMER DEVELOPER.
--- NOTE | 2021-01-22 19:00 | NUR ---
TELE OPENING NOTES PATIENT RESTING IN BED, ALERT/ORIENTED X 2, PATIENT ABLE TO MAKE NEEDS KNOWN. PATIENT HAS NO C/O PAIN AT THIS TIME.PATIENT ON VENTILATOR AC 18, NO S/S OF DISTRESS OR SHORTNESS OF BREATH NOTED. RIGHT UPPER MIDLINE #18G INTACT A. SAFETY MEASURES IN PLACE, CALL LIGHT WITHIN REACH, BED LOCKED IN LOWEST POSITION, BED ALARM ON. WILL CONTINUE TO MONITOR
--- NOTE | 2021-01-22 21:00 | NUR ---
BLLOD TRANSFUSION ENDED AT THIS TIME. VS WNL AND NO REACTION. PT IS ALERT AND RESTING AT THIS TIME. WILL CONTINUE TO MONITOR
[2021-01-22] MEDS: ATORVASTATIN 10 MG TABLET PO SCH (21:29)
[2021-01-22] MEDS: INSULIN GLARGINE, 100 UNIT/ML CARTRIDGE SQ SCH (22:00)
--- NOTE | 2021-01-22 22:00 | NUR ---
BS 130. NIXON HELD BECAUSE PT IS NPO
[2021-01-23] VITALS: BP 132/50
[2021-01-23] MEDS: MORPHINE SULFATE INJ 4 MG/ML DISP.SYRIN IV PRN ×2 (03:22→20:22)
--- NOTE | 2021-01-23 03:22 | NUR ---
PT C/O ACHING PAIN 10/10 ON HER BACK, PER PT REQUEST MORPHINE 4MG/IML IVP Q2HR PRN ADMINISTERED PER ORDER. WILL CONTINUE TO MONITOR PATIENT.
[2021-01-23 04:00] VITALS: BP 106/46
[2021-01-23] MEDS: CEFTRIAXONE 1 G in IV D5W 50 ML IV SCH (05:02)
[2021-01-23] MEDS: AZITHROMYCIN 500 MG in IV D5W 250 ML IV SCH (05:02)
--- NOTE | 2021-01-23 06:35 | NUR ---
RING CONDUCTOR CLOSING NOTES PATIENT RESTING COMFORTABLY IN BED, PATIENT ABLE TO MAKE NEEDS KNOWN. NO REPORTS OF PAIN AT THIS TIME. PATIENT ON VENTILATOR SB @56 WITH BBB, AC 18, TV 500, FIO2 50, PEEP +5, NO S/S OF DISTRESS OR SHORTNESS OF BREATH NOTED. RIGHT UPPER MIDLINE #18G INTACT AND PATENT. WOUND DRESSING CHANGE AND BULLARD CATHETER CARE PROVIDED, PAIN MEDICATIONS GIVEN ORDERED AND PATIENT NEEDS MET THROUGHOUT SHIFT, SAFETY MEASURES IN PLACE, CALL LIGHT WITHIN REACH, BED LOCKED IN LOWEST POSITION, BED ALARM ON. WILL ENDORSE TO DAY SHIFT NURSE FOR CONTINUITY OF CARE
--- NOTE | 2021-01-23 07:30 | NUR ---
HEDDLE MACHINE OPERATOR NOTES PT IN BED, AWAKE, ALERT TO SELF, NON VERBAL, ABLE TO NOD HER HEAD AND MOUTH WORDS, NOT IN DISTRESS, ON VENT/TRACH, CALL LIGHT WITHIN REACH, KEPT WARM AND COMFORTABLE IN BED.
[2021-01-23] MEDS: BUDESONIDE RESPULE INH 0.25 MG/2 ML AMPUL.NEB NEB SCH ×2 (08:06→19:19)
[2021-01-23 08:20] VITALS: BP 118/56
[2021-01-23] MEDS: LACTULOSE 10 G/15 ML UDC (PYXIS) GT SCH ×3 (08:52→17:02)
[2021-01-23] MEDS: FUROSEMIDE 40 MG/4 ML VIAL IV SCH (08:52)
[2021-01-23] MEDS: POLYETHYLENE GLYCOL 3350 17 GM POWD.PACK GT SCH (08:52)
[2021-01-23] MEDS: FAMOTIDINE (20 MG) 20 MG TABLET GT SCH ×2 (08:52→17:02)
[2021-01-23] MEDS: PANTOPRAZOLE 40 MG TABLET.DR PO SCH (08:53)
[2021-01-23] MEDS: LEVETIRACETAM (250 MG) 250 MG TABLET PO SCH ×2 (08:53→17:02)
[2021-01-23] MEDS: ALLOPURINOL 100 MG TABLET GT SCH ×2 (08:53→17:15)
[2021-01-23] MEDS: GABAPENTIN 100 MG CAPSULE GT SCH ×2 (08:53→17:03)
[2021-01-23] MEDS: POTASSIUM CHLORIDE 20 MEQ TAB.PRT.SR PO SCH (08:53)
[2021-01-23] MEDS: MAGNESIUM OXIDE 400 MG TABLET GT SCH (08:53)
[2021-01-23] MEDS: ASPIRIN 81 MG TAB.CHEW GT SCH (08:53)
[2021-01-23] MEDS: FLUTICASONE PROPIONATE 16 GM BOTTLE NS SCH ×2 (08:54→17:03)
[2021-01-23] MEDS: THERAHONEY GEL 1.5 OZ TUBE TP SCH (08:54)
[2021-01-23] MEDS: AMLODIPINE BESYLATE 5 MG TABLET GT SCH ×2 (08:55→20:22)
[2021-01-23 10:08] LABS: BASOPHILS % (AUTO) 0.3 % (0.0-2.0); EOSINOPHILS % (AUTO) 4.4 % (0.0-6.0); HEMATOCRIT 22 % (33-45); LYMPHOCYTES # (AUTO) 1.1 K/uL (0.8-4.8); LYMPHOCYTES % (AUTO) 14.3 % (20.0-44.0); MEAN CORPUSCULAR HGB CONC 32 g/dl (31.0-36.0); MEAN CORPUSCULAR VOLUME 93 fL (82-100); MONOCYTES # (AUTO) 0.2 K/uL (0.1-1.30); MONOCYTES % (AUTO) 2.9 % (2.0-12.0); NEUTROPHILS # (AUTO) 5.9 K/uL (1.8-8.9); NEUTROPHILS % (AUTO) 78.1 % (43.0-81.0); PLATELET COUNT (AUTO) 171 K/uL (150-450); RED BLOOD CELL COUNT(AUTO) 2.34 MIL/uL (4.0-5.2); WHITE BLOOD COUNT (AUTO) 7.6 K/uL (4.3-11.0)
[2021-01-23 11:04] LABS: HEMOGLOBIN 6.9 g/dL (11.5-14.8)
--- NOTE | 2021-01-23 11:47 | NUR ---
BRAKE LINING FINISHER NOTES RELAYED LATEST HBG LEVEL OF 6.[address] BROOKS, ORDERED TO RECHECK HGB IN AM, NO OTHER ORDER RECEIVED AT THIS TIME, PT IN BED RESTING, NOACTIVE BLEEDING NOTED.
[2021-01-23 12:05] VITALS: BP 122/52
[2021-01-23 13:08] LABS: EOSINOPHILS % (MANUAL) 5 % (0-4); LYMPHOCYTES % (MANUAL) 15 % (16-48); MONOCYTES % (MANUAL) 2 % (0-11.0); NEUTROPHILS % (MANUAL) 78 (42-76)
[2021-01-23] MEDS: EPOETIN ALFA-EPBX 4,000 UNIT/ML VIAL SQ SCH (15:09)
[2021-01-23 15:50] VITALS: BP 116/54
--- NOTE | 2021-01-23 18:43 | NUR ---
SCRAP BREAKER NOTES PT IN BED, AWAKE, ALERT, WATCHING TV, NO COMPLAINT OF PAIN OR ANY DISCOMFORT, ON VENT/TRACH, F/C IN PLACE, DRAINING WELL WITH CLEAR, YELLOW URINE, PM CARE PROVIDED, WOUND TREATMENT AND DRESSING CHANGE DONE, TOLERATED WELL, KEPT WARM AND COMFORTABLE IN BED.
--- NOTE | 2021-01-23 19:35 | NUR ---
TELE/RN OPENING NOTE RECEIVED PATIENT RESTING IN BED. ALERT AND ORIENTED X 1-2 AT BASELINE. NO S/SX OF PAIN NOTED AT THIS TIME. CONTINUES ON MECHANICAL VENT WITH NO S/SX OF RESPIRATORY DISTRESS NOTED. IV ACCESS TO LEFT UPPER ARM MIDLINE #18G INTACT, PATENT AND SALINE LOCKED. CONTINUES ON NPO DIET. GTUBE INTACT, PATENT AND CLAMPED. BULLARD CATHETER PATENT DRAINING CLEAR, YELLOW URINE. CALL LIGHT WITHIN REACH. ASPIRATION, FALL AND SAFETY PRECAUTIONS MAINTAINED. WILL CONTINUE TO MONITOR.
[2021-01-23 20:00] VITALS: BP 138/60
[2021-01-23] MEDS: ATORVASTATIN 10 MG TABLET PO SCH (21:19)
[2021-01-23] MEDS: INSULIN GLARGINE, 100 UNIT/ML CARTRIDGE SQ SCH (21:26)
--- NOTE | 2021-01-23 21:26 | NUR ---
TELE/RN NOTE BLOOD GLUCOSE LEVEL AT 2130 IS 122. PATIENT IS CURRENTLY NPO. HOLDING LANTUS D/T NPO STATUS. WILL CONTINUE TO MONITOR.
--- NOTE | 2021-01-23 22:51 | NUR ---
TELE/RN NOTE NOTIFIED ON-CALL MD RIVERA FOR CLARIFICATION OF TUBE FEEDING ORDER. PER MD RIVERA WAIT UNIT AM AND CLARIFY WITH MD BROOKS. PATIENT CURRENTLY RESTING IN BED WITH NO S/SX OF HYPER/HYPOGLYCEMIA. WILL CONTINUE TO MONITOR.
[2021-01-24] VITALS: BP 135/55
[2021-01-24] MEDS: MORPHINE SULFATE INJ 4 MG/ML DISP.SYRIN IV PRN ×2 (03:42→16:51)
[2021-01-24 04:00] VITALS: BP 136/71
[2021-01-24] MEDS: CEFTRIAXONE 1 G in IV D5W 50 ML IV SCH (05:03)
[2021-01-24] MEDS: AZITHROMYCIN 500 MG in IV D5W 250 ML IV SCH (05:41)
--- NOTE | 2021-01-24 06:35 | NUR ---
TELE/RN CLOSING NOTE PATIENT CURRENTLY RESTING IN BED. ALERT AND ORIENTED X 1-2 AT BASELINE. NO S/SX OF PAIN NOTED AT THIS TIME. CONTINUES ON MECHANICAL VENT WITH NO S/SX OF RESPIRATORY DISTRESS NOTED. IV ACCESS TO LEFT UPPER ARM MIDLINE #18G INTACT, PATENT AND SALINE LOCKED. CONTINUES ON NPO DIET. GTUBE INTACT, PATENT AND CLAMPED. BULLARD CATHETER PATENT DRAINING CLEAR, YELLOW URINE. CALL LIGHT WITHIN REACH. ASPIRATION, FALL AND SAFETY PRECAUTIONS MAINTAINED. WILL ENDORSE PLAN OF CARE TO ONCOMING SHIFT.
[2021-01-24 07:38] LABS: CREATININE 1.6 mg/dL (0.6-1.3); POTASSIUM 4.7 mmol/L (3.5-5.1)
--- NOTE | 2021-01-24 07:45 | NUR ---
ms rn received on bed, awake,alert,oriented x2,not in any form of distress, respirations even and unlabored,not in any form of distress, respiration even unlabored,no sob noted. denies pain at this time,zuniga to gravity w/ adequate urine output,piccline intact,denies pain at this time, will monitor patient.
[2021-01-24] MEDS: BUDESONIDE RESPULE INH 0.25 MG/2 ML AMPUL.NEB NEB SCH ×2 (07:48→20:09)
[2021-01-24 08:00] VITALS: BP 126/46
[2021-01-24] MEDS: AMLODIPINE BESYLATE 5 MG TABLET GT SCH ×3 (09:00→20:25)
[2021-01-24 09:02] LABS: BASOPHILS % (AUTO) 0.7 % (0.0-2.0); EOSINOPHILS % (AUTO) 5.9 % (0.0-6.0); HEMATOCRIT 24 % (33-45); HEMOGLOBIN 7.6 g/dL (11.5-14.8); LYMPHOCYTES # (AUTO) 1.3 K/uL (0.8-4.8); LYMPHOCYTES % (AUTO) 26.4 % (20.0-44.0); MEAN CORPUSCULAR HGB CONC 32 g/dl (31.0-36.0); MEAN CORPUSCULAR VOLUME 93 fL (82-100); MONOCYTES # (AUTO) 0.4 K/uL (0.1-1.30); MONOCYTES % (AUTO) 7.1 % (2.0-12.0); NEUTROPHILS % (AUTO) 59.9 % (43.0-81.0); PLATELET COUNT (AUTO) 178 K/uL (150-450); RED BLOOD CELL COUNT(AUTO) 2.55 MIL/uL (4.0-5.2)
--- NOTE | 2021-01-24 09:50 | NUR ---
ms rn still waiting for willian manuel to see,patient.
[2021-01-24] MEDS: POLYETHYLENE GLYCOL 3350 17 GM POWD.PACK GT SCH (10:12)
[2021-01-24] MEDS: POTASSIUM CHLORIDE 20 MEQ TAB.PRT.SR PO SCH (10:13)
[2021-01-24] MEDS: LACTULOSE 10 G/15 ML UDC (PYXIS) GT SCH ×3 (10:13→16:50)
[2021-01-24] MEDS: ALLOPURINOL 100 MG TABLET GT SCH ×2 (10:13→16:50)
[2021-01-24] MEDS: FUROSEMIDE 40 MG/4 ML VIAL IV SCH (10:13)
[2021-01-24] MEDS: MAGNESIUM OXIDE 400 MG TABLET GT SCH (10:14)
[2021-01-24] MEDS: GABAPENTIN 100 MG CAPSULE GT SCH ×2 (10:14→16:51)
[2021-01-24] MEDS: FAMOTIDINE (20 MG) 20 MG TABLET GT SCH ×2 (10:15→16:50)
[2021-01-24] MEDS: LEVETIRACETAM (250 MG) 250 MG TABLET PO SCH ×2 (10:15→16:50)
[2021-01-24] MEDS: ASPIRIN 81 MG TAB.CHEW GT SCH (10:15)
[2021-01-24] MEDS: PANTOPRAZOLE 40 MG TABLET.DR PO SCH (11:17)
[2021-01-24] MEDS: THERAHONEY GEL 1.5 OZ TUBE TP SCH (11:30)
[2021-01-24] MEDS: FLUTICASONE PROPIONATE 16 GM BOTTLE NS SCH ×2 (11:31→16:52)
[2021-01-24 12:00] VITALS: BP 155/65
[2021-01-24 16:00] VITALS: BP 142/60
--- NOTE | 2021-01-24 19:00 | NUR ---
ms rn on bed, no distress noted.
--- NOTE | 2021-01-24 19:30 | NUR ---
TELE OPENING NOTES PATIENT RESTING IN BED, ALERT/ORIENTED X 3, PATIENT ABLE TO MAKE NEEDS KNOWN. PATIENT HAS NO C/O PAIN AT THIS TIME.PATIENT ON VENTILATOR AC RATE 18, TV 500, %O2 40, PEEP 5, NO S/S OF DISTRESS OR SHORTNESS OF BREATH NOTED. RIGHT UPPER MIDLINE #18G SL INTACT . PT IS NPO. BULLARD CATHETER IN PLACE. SAFETY MEASURES IN PLACE, CALL LIGHT WITHIN REACH, BED LOCKED IN LOWEST POSITION, BED ALARM ON. WILL CONTINUE TO MONITOR
[2021-01-24 20:00] VITALS: BP 135/59
[2021-01-24] MEDS: ATORVASTATIN 10 MG TABLET PO SCH (21:03)
--- NOTE | 2021-01-24 21:56 | NUR ---
BS 116
[2021-01-24] MEDS: INSULIN GLARGINE, 100 UNIT/ML CARTRIDGE SQ SCH (22:00)
--- NOTE | 2021-01-24 22:06 | NUR ---
BS 116. LANTUS NOT GIVEN. PT IS NPO
[2021-01-25] VITALS: BP 133/72
[2021-01-25 04:00] VITALS: BP 136/57
[2021-01-25] MEDS: MORPHINE SULFATE INJ 4 MG/ML DISP.SYRIN IV PRN ×3 (04:26→20:20)
--- NOTE | 2021-01-25 04:26 | NUR ---
PT C/O ACHING PAIN 10/10 GENERALIZED BODY PAIN, PER PT REQUEST MORPHINE 4MG/IML IVP Q2HR PRN ADMINISTERED PER ORDER. WILL CONTINUE TO MONITOR PATIENT.
[2021-01-25] MEDS: CEFTRIAXONE 1 G in IV D5W 50 ML IV SCH (05:15)
[2021-01-25] MEDS: AZITHROMYCIN 500 MG in IV D5W 250 ML IV SCH (06:07)
--- NOTE | 2021-01-25 06:21 | NUR ---
FX ARTIST CLOSING NOTES PATIENT RESTING COMFORTABLY IN BED, PATIENT ABLE TO MAKE NEEDS KNOWN. NO REPORTS OF PAIN AT THIS TIME. PATIENT ON VENTILATOR SB BBB @47 , AC 18, TV 500, FIO2 50, PEEP +5, NO S/S OF DISTRESS OR SHORTNESS OF BREATH NOTED. RIGHT UPPER MIDLINE #18G INTACT AND PATENT. WOUND DRESSING CHANGE AND BULLARD CATHETER CARE PROVIDED, PAIN MEDICATIONS GIVEN ORDERED AND PATIENT NEEDS MET THROUGHOUT SHIFT, SAFETY MEASURES IN PLACE, CALL LIGHT WITHIN REACH, BED LOCKED IN LOWEST POSITION, BED ALARM ON. WILL ENDORSE TO DAY SHIFT NURSE FOR CONTINUITY OF CARE
[2021-01-25 07:11] LABS: BASOPHILS % (AUTO) 0.8 % (0.0-2.0); EOSINOPHILS % (AUTO) 5.2 % (0.0-6.0); HEMATOCRIT 24 % (33-45); HEMOGLOBIN 7.7 g/dL (11.5-14.8); LYMPHOCYTES # (AUTO) 1.1 K/uL (0.8-4.8); LYMPHOCYTES % (AUTO) 21.1 % (20.0-44.0); MEAN CORPUSCULAR HGB CONC 32 g/dl (31.0-36.0); MEAN CORPUSCULAR VOLUME 93 fL (82-100); MONOCYTES # (AUTO) 0.4 K/uL (0.1-1.30); MONOCYTES % (AUTO) 8.5 % (2.0-12.0); NEUTROPHILS # (AUTO) 3.4 K/uL (1.8-8.9); NEUTROPHILS % (AUTO) 64.4 % (43.0-81.0); PLATELET COUNT (AUTO) 176 K/uL (150-450); RED BLOOD CELL COUNT(AUTO) 2.56 MIL/uL (4.0-5.2); WHITE BLOOD COUNT (AUTO) 5.3 K/uL (4.3-11.0)
--- NOTE | 2021-01-25 07:32 | NUR ---
TELE OPENING NOTES PATIENT RECEIVED AWAKE IN BED IN NO ACUTE SIGNS OF DISTRESS. HOB ELEVATED. A/O X 3, ABLE TO MAKE NEEDS KNOWN, DENIES PAIN AT THIS TIME. PT ON TRACH CONNECTED TO [facility] VENTILATOR AT AC RATE 18, TV 500, FI02 40, PEEP 5, TOLERATING SETTINGS WITH NO SOB NOTED, SP02 100%. PT ON TELE MONITORING WITH CURRENT READING OF SB WITH BBB'S, HR ON THE HIGH 40'S, NO C/O CARDIAC DISTRESS VOICED. RIGHT UPPER MIDLINE #18G SL INTACT AND PATENT. PT IS NPO WITH G-TUBE IN PLACE. BULLARD CATHETER IN PLACE WITH CLOUDY YELLOW URINE OUTPUT NOTED. SAFETY MEASURES IN PLACE: CALL LIGHT WITHIN REACH, BED LOCKED IN LOWEST POSITION, BED ALARM ON AND SR UP X3. WILL CONTINUE TO MONITOR PT ACCORDINGLY.
[2021-01-25] MEDS: PANTOPRAZOLE 40 MG TABLET.DR PO SCH (07:55)
[2021-01-25] MEDS: BUDESONIDE RESPULE INH 0.25 MG/2 ML AMPUL.NEB NEB SCH ×2 (07:58→20:21)
[2021-01-25 08:00] VITALS: BP 127/55
[2021-01-25 08:11] LABS: CALCIUM, SERUM 9.3 mg/dL (8.5-10.1); CREATININE 1.5 mg/dL (0.6-1.3); MAGNESIUM 1.8 mg/dL (1.8-2.4); PHOSPHORUS 3.4 mg/dL (2.5-4.9); POTASSIUM 4.6 mmol/L (3.5-5.1)
[2021-01-25] MEDS: FUROSEMIDE 40 MG/4 ML VIAL IV SCH (08:45)
[2021-01-25] MEDS: LACTULOSE 10 G/15 ML UDC (PYXIS) GT SCH ×3 (08:46→17:10)
[2021-01-25] MEDS: MAGNESIUM OXIDE 400 MG TABLET GT SCH (08:46)
[2021-01-25] MEDS: GABAPENTIN 100 MG CAPSULE GT SCH ×2 (08:46→17:10)
[2021-01-25] MEDS: FAMOTIDINE (20 MG) 20 MG TABLET GT SCH ×2 (08:47→17:10)
[2021-01-25] MEDS: ALLOPURINOL 100 MG TABLET GT SCH ×2 (08:47→17:10)
[2021-01-25] MEDS: POLYETHYLENE GLYCOL 3350 17 GM POWD.PACK GT SCH (08:47)
[2021-01-25] MEDS: POTASSIUM CHLORIDE 20 MEQ TAB.PRT.SR PO SCH (08:47)
[2021-01-25] MEDS: AMLODIPINE BESYLATE 5 MG TABLET GT SCH ×2 (08:47→21:21)
[2021-01-25] MEDS: ASPIRIN 81 MG TAB.CHEW GT SCH (08:47)
[2021-01-25] MEDS: FLUTICASONE PROPIONATE 16 GM BOTTLE NS SCH ×2 (08:48→17:10)
[2021-01-25] MEDS: LEVETIRACETAM (250 MG) 250 MG TABLET PO SCH ×2 (08:48→17:10)
[2021-01-25] MEDS: GLUCERNA 1.2 1,000 ML BOTTLE NG PRN (09:28)
--- NOTE | 2021-01-25 09:32 | NUR ---
RN NOTES G-TUBE IN PLACE AND PATENT. PLACEMENT VERIFIED. NO RESIDUALS NOTED AND STARTED ON GLUCERNA 1.2 FEEDING AT 30ML/HR. RATE TO INCREASE TOLERATED UP TO A GOAL OF 70ML/HR. WILL MONITOR.
[2021-01-25] MEDS: THERAHONEY GEL 1.5 OZ TUBE TP SCH (10:54)
--- NOTE | 2021-01-25 15:51 | NUR ---
RN NOTES PT C/O GENERALIZED PAIN,10/10 SCALE. PRN MORPHINE 4MG/ML IVP ADMINISTERED AT 1547. WILL CONTINUE TO MONITOR AND REASSESS PT.
[2021-01-25 16:00] VITALS: BP 148/78
--- NOTE | 2021-01-25 18:36 | NUR ---
LOOM REPAIRER CLOSING NOTES PATIENT IN BED AWAKE AND WATCHING TV AT THIS TIME. HOB ELEVATED. A/O X 3, ABLE TO MAKE NEEDS KNOWN. PT ON TRACH CONNECTED TO [facility] VENTILATOR AT AC RATE 18, TV 500, FI02 30%, PEEP 5, TOLERATING SETTINGS WELL WITH NO SOB NOTED, SP02 100%.TELE MONITOR SHOWS SB WITH BBB'S, HR ON THE HIGH 40'S, NO C/O CARDIAC DISTRESS VOICED DURING THE DAY. RIGHT UPPER MIDLINE #18G SL INTACT AND PATENT. G-TUBE IN PLACE AND PATENT WITH GLUCERNA 1.2 FEEDING @ 50 ML/HR IN PROGRESS AT THIS TIME, TOLERATING WELL. ASPIRATION PRECAUTIONS MAINTAINED. BULLARD CATHETER IN PLACE WITH CLOUDY YELLOW URINE OUTPUT NOTED, BULLARD CARE DONE. PT TURNED AND REPOSITIONED Q 2HRS AND PRN. ALL NEEDS AND CARE PROVIDED WELL. SAFETY PRECAUTIONS MAINTAINED: BED IN LOWEST LOCKED POSITION, SIDE-RAILS UP X3 AND CALL LIGHT W/IN REACH. WILL ENDORSE CARLTON TO EQUINE DENTIST NURSE.
[2021-01-25 20:00] VITALS: BP 133/57
[2021-01-25] MEDS: ATORVASTATIN 10 MG TABLET PO SCH (21:21)
[2021-01-25] MEDS: INSULIN GLARGINE, 100 UNIT/ML CARTRIDGE SQ SCH (21:59)
[2021-01-26] VITALS: BP 130/52
[2021-01-26] MEDS: MORPHINE SULFATE INJ 4 MG/ML DISP.SYRIN IV PRN ×3 (01:09→21:42)
[2021-01-26 04:00] VITALS: BP 128/45
[2021-01-26] MEDS: CEFTRIAXONE 1 G in IV D5W 50 ML IV SCH (05:04)
--- NOTE | 2021-01-26 06:24 | NUR ---
QUALITY ASSURANCE SUPERVISOR NOTES AWAKE & RESPONSIVE. NOT IN ANY DISTRESS. NO SOB NOTED. DENIES ANY PAIN OR DISCOMFORT AT THIS TIME. ON TELE SB @ 46 WITH BBB WITH SAME VENT SETTINGS WITH IVF INFUSING WELL. AM CARE DONE. MONITORED ACCORDINGLY. CALL LIGHT WITHIN REACH. BED IN LOWEST POSITION. SR UP X 3 WITH BED ALARM ON FOR SAFETY. WILL ENDORSE TO NEXT SHIFT.
[2021-01-26 06:29] LABS: BASOPHILS % (AUTO) 0.3 % (0.0-2.0); EOSINOPHILS % (AUTO) 3.1 % (0.0-6.0); HEMATOCRIT 23 % (33-45); HEMOGLOBIN 7.5 g/dL (11.5-14.8); LYMPHOCYTES # (AUTO) 1.6 K/uL (0.8-4.8); LYMPHOCYTES % (AUTO) 17.2 % (20.0-44.0); MEAN CORPUSCULAR HGB CONC 32 g/dl (31.0-36.0); MEAN CORPUSCULAR VOLUME 92 fL (82-100); MONOCYTES # (AUTO) 0.8 K/uL (0.1-1.30); MONOCYTES % (AUTO) 8.7 % (2.0-12.0); NEUTROPHILS # (AUTO) 6.4 K/uL (1.8-8.9); NEUTROPHILS % (AUTO) 70.7 % (43.0-81.0); PLATELET COUNT (AUTO) 215 K/uL (150-450); RED BLOOD CELL COUNT(AUTO) 2.52 MIL/uL (4.0-5.2); WHITE BLOOD COUNT (AUTO) 9.1 K/uL (4.3-11.0)
--- NOTE | 2021-01-26 07:16 | NUR ---
CERTIFIED TUMOR REGISTRAR OPENING NOTES RECEIVED PT AWAKE IN BED WATCHING TV. HOB ELEVATED. A/O X 3, ABLE TO MAKE NEEDS KNOWN, DENIES PAIN AT THIS TIME. PT ON TRACH SHILEY #5 XLT CONNECTED TO [facility] VENTILATOR AT AC RATE 18, TV 500, FI02 30%, PEEP 5, TOLERATING SETTINGS WITH NO SOB NOTED, SP02 100%. PT ON TELE MONITOR WITH CURRENT READING OF SB WITH BBB'S, HR ON THE HIGH 40'S, NO C/O CARDIAC DISTRESS VOICED. RIGHT UPPER MIDLINE #18G SL INTACT AND PATENT. G-TUBE IN PLACE W/ FEEDING OF GLUCERNA 1.2 @ 70ML/HR IN PROGRESS, TOLERATING WELL. ASPIRATION PRECAUTIONS MAINTAINED. BULLARD CATHETER IN PLACE WITH SLIGHTLY CLOUDY YELLOW URINE OUTPUT NOTED. SAFETY MEASURES IN PLACE: CALL LIGHT WITHIN REACH, BED LOCKED IN LOWEST POSITION, BED ALARM ON AND SR UP X3. WILL CONTINUE TO MONITOR PT.
[2021-01-26 07:23] LABS: CALCIUM, SERUM 9.2 mg/dL (8.5-10.1); CREATININE 1.5 mg/dL (0.6-1.3); MAGNESIUM 1.7 mg/dL (1.8-2.4); PHOSPHORUS 3.6 mg/dL (2.5-4.9); POTASSIUM 4.4 mmol/L (3.5-5.1)
[2021-01-26] MEDS: PANTOPRAZOLE 40 MG TABLET.DR PO SCH (07:33)
[2021-01-26 08:00] VITALS: BP 139/67
[2021-01-26] MEDS: BUDESONIDE RESPULE INH 0.25 MG/2 ML AMPUL.NEB NEB SCH ×2 (08:16→20:12)
[2021-01-26] MEDS: FAMOTIDINE (20 MG) 20 MG TABLET GT SCH ×2 (08:42→16:52)
[2021-01-26] MEDS: GABAPENTIN 100 MG CAPSULE GT SCH ×2 (08:42→16:52)
[2021-01-26] MEDS: LACTULOSE 10 G/15 ML UDC (PYXIS) GT SCH ×3 (08:42→16:52)
[2021-01-26] MEDS: FUROSEMIDE 40 MG/4 ML VIAL IV SCH (08:42)
[2021-01-26] MEDS: LEVETIRACETAM (250 MG) 250 MG TABLET PO SCH ×2 (08:42→16:52)
[2021-01-26] MEDS: POLYETHYLENE GLYCOL 3350 17 GM POWD.PACK GT SCH (08:42)
[2021-01-26] MEDS: ASPIRIN 81 MG TAB.CHEW GT SCH (08:42)
[2021-01-26] MEDS: POTASSIUM CHLORIDE 20 MEQ TAB.PRT.SR PO SCH (08:43)
[2021-01-26] MEDS: ALLOPURINOL 100 MG TABLET GT SCH ×2 (08:43→16:52)
[2021-01-26] MEDS: AMLODIPINE BESYLATE 5 MG TABLET GT SCH ×2 (08:43→20:37)
[2021-01-26] MEDS: MAGNESIUM OXIDE 400 MG TABLET GT SCH (08:43)
[2021-01-26] MEDS: THERAHONEY GEL 1.5 OZ TUBE TP SCH (08:44)
[2021-01-26] MEDS: FLUTICASONE PROPIONATE 16 GM BOTTLE NS SCH ×2 (08:44→16:52)
[2021-01-26] MEDS ORDERED: METHOTREXATE SODIUM (2.5MG) 2.5 MG TABLET GT SCH (09:00)
[2021-01-26] MEDS ORDERED: FOLIC ACID 1 MG TABLET GT SCH (09:00)
[2021-01-26] MEDS: GLUCERNA 1.2 1,000 ML BOTTLE NG PRN (11:08)
[2021-01-26] MEDS: Magnesium 1GM/D5W 100ML PREMIX 100 ML IV SCH ×2 (12:46→14:06)
--- NOTE | 2021-01-26 13:47 | NUR ---
RN NOTES PT WITH LOW LEVEL MAGNESIUM 1.7 TODAY. MAGNESIUM 1MG/[id number] IV X2 BAGS ADMINISTERED ORDERED.
[2021-01-26] MEDS: EPOETIN ALFA-EPBX 4,000 UNIT/ML VIAL SQ SCH (15:43)
--- NOTE | 2021-01-26 15:45 | NUR ---
RN NOTES EPOETIN ALFAS -EPEX 4,000 U/ML INJECTED SQ TO LEFT LOWER ABD.
--- NOTE | 2021-01-26 15:56 | NUR ---
RN NOTES PT C/O PAIN ON B/L LEGS AND BUTTOCKS,10/10 SCALE. PRN MORPHINE 4MG/ML IVP ADMINISTERED AT 1552. WILL CONTINUE TO MONITOR AND REASSESS PT.
[2021-01-26 16:00] VITALS: BP 152/65
--- NOTE | 2021-01-26 18:28 | NUR ---
OFFICE SPECIALIST CLOSING NOTES PATIENT IN BED WATCHING TV AT THIS TIME. HOB ELEVATED. A/O X 3, ABLE TO MAKE NEEDS KNOWN. PT ON TRACH SHILEY #5 XLT CONNECTED TO [facility] VENTILATOR AT AC RATE 18, TV 500, FI02 30%, PEEP 5, TOLERATING SETTINGS WELL WITH NO SOB NOTED, SP02 100%. TELE MONITOR SHOWS SB WITH BBB'S, HR RANGES B/W 40-6 BPM DURING THE, NO C/O CARDIAC DISTRESS VOICED. RIGHT UPPER MIDLINE #18G SL INTACT, PATENT AND FLUSHES WELL. G-TUBE IN PLACE AND PATENT WITH GLUCERNA 1.2 FEEDING @ 70 ML/HR IN PROGRESS, TOLERATING WELL. ASPIRATION PRECAUTIONS MAINTAINED. BULLARD CATHETER IN PLACE WITH SLIGHTLY CLOUDY YELLOW URINE OUTPUT NOTED, BULLARD CARE DONE. PT TURNED AND REPOSITIONED Q 2HRS AND PRN. ALL NEEDS AND CARE PROVIDED WELL. SAFETY PRECAUTIONS MAINTAINED: BED IN LOWEST LOCKED POSITION, SIDE-RAILS UP X3 AND CALL LIGHT W/IN REACH. WILL ENDORSE CARLTON TO METALLOGRAPHIC TECHNICIAN NURSE.
[2021-01-26 20:00] VITALS: BP 126/78
--- NOTE | 2021-01-26 20:00 | NUR ---
CREATIVE SERVICES INTERN OPENING NOTE RECEIVED PT AWAKE IN BED. A/O X 3, ABLE TO MAKE NEEDS KNOWN. PT NOTED ON TRACH SHILEY #[address] [facility] VENTILATOR AT AC RATE 18, TV 500, FI02 30%, PEEP 5, TOLERATING SETTINGS WITH NO SOB OR S/S OF RESPIRATORY DISTRESS NOTED, SP02 100%. PT ON EXTERNAL CONCRETE MIXER OPERATOR HELPER READING SB WITH BBB'S AT 52 BPM. RIGHT UPPER MIDLINE #18 SALINE-LOCKED, INTACT AND PATENT. GTUBE IN PLACE W/ FEEDING OF GLUCERNA 1.2 @ 70ML/HR, TOLERATING WELL. BULLARD CATH IN PLACE DRAINING SLIGHTLY CLOUDY YELLOW URINE. SAFETY AND ASPIRATION PRECAUTIONS MAINTAINED. BED IN LOWEST LOCKED POSITION, HOB ELEVATED, SIDE RAILS UP X2. CALL LIGHT AND TABLE WITHIN REACH. WILL CONTINUE WITH PLAN OF CARE.
[2021-01-26] MEDS: ATORVASTATIN 10 MG TABLET PO SCH (21:11)
[2021-01-26] MEDS: INSULIN GLARGINE, 100 UNIT/ML CARTRIDGE SQ SCH (21:17)
--- NOTE | 2021-01-26 21:42 | NUR ---
RN PAIN PT C/O ACHING PAIN IN BILATERAL LEGS AND BUTTOCKS, RATED 9/10 ON 0-10 PAIN SCALE. PT NOTED WITH FACIAL GRIMACING, GUARDING, RESTLESSNESS, AND IRRITABILITY. VSS. PER PT REQUEST, ADMINISTERED MORPHINE SULFATE 4 MG IV Q2H PRN FOR PAIN. WILL CONTINUE TO MONITOR.
[2021-01-27] VITALS: BP 141/71
[2021-01-27] MEDS: MORPHINE SULFATE INJ 4 MG/ML DISP.SYRIN IV PRN ×4 (03:55→23:21)
[2021-01-27 04:00] VITALS: BP 129/58
[2021-01-27] MEDS: CEFTRIAXONE 1 G in IV D5W 50 ML IV SCH (05:34)
--- NOTE | 2021-01-27 07:00 | NUR ---
RIGHT OF WAY APPRAISER CLOSING NOTE PT IS AWAKE IN BED. A/O X 3, ABLE TO MAKE NEEDS KNOWN. PT NOTED ON TRACH SHILEY #5 XLT CONNECTED TO [facility] VENTILATOR AT AC RATE 18, TV 500, FI02 30%, PEEP 5, TOLERATING SETTINGS WITH NO SOB OR S/S OF RESPIRATORY DISTRESS NOTED, SP02 100%. PT ON EXTERNAL LICENSED CUSTOMS BROKER READING SB WITH BBB'S AT 50 BPM. RIGHT UPPER MIDLINE #18 INTACT, PATENT, AND FLUSHING WELL. GTUBE IN PLACE W/ FEEDING OF GLUCERNA 1.2 @ 70ML/HR, TOLERATING WELL. BULLARD CATH IN PLACE DRAINING CLOUDY YELLOW URINE. ALL NEEDS HAVE BEEN MET. PAIN MANAGEMENT AND WOUND CARE ADMINISTERED PER ORDER. SAFETY AND ASPIRATION PRECAUTIONS MAINTAINED AT ALL TIMES. BED IN LOWEST LOCKED POSITION, HOB ELEVATED, SIDE RAILS UP X2. CALL LIGHT AND TABLE WITHIN REACH. WILL ENDORSE TO ONCOMING NURSE FOR CARLTON.
[2021-01-27 07:10] LABS: BASOPHILS % (AUTO) 0.4 % (0.0-2.0); EOSINOPHILS % (AUTO) 2.6 % (0.0-6.0); HEMATOCRIT 22 % (33-45); LYMPHOCYTES # (AUTO) 1.9 K/uL (0.8-4.8); LYMPHOCYTES % (AUTO) 16.8 % (20.0-44.0); MEAN CORPUSCULAR HGB CONC 32 g/dl (31.0-36.0); MEAN CORPUSCULAR VOLUME 93 fL (82-100); MONOCYTES % (AUTO) 9.1 % (2.0-12.0); NEUTROPHILS # (AUTO) 7.9 K/uL (1.8-8.9); NEUTROPHILS % (AUTO) 71.1 % (43.0-81.0); PLATELET COUNT (AUTO) 261 K/uL (150-450); RED BLOOD CELL COUNT(AUTO) 2.37 MIL/uL (4.0-5.2); WHITE BLOOD COUNT (AUTO) 11.1 K/uL (4.3-11.0)
--- NOTE | 2021-01-27 07:30 | NUR ---
MOLECULAR BIOLOGIST NOTES PT IN BED, AWAKE, ALERT AND ABLE TO MAKE NEEDS KNOWN, CALL LIGHT WITHIN REACH, ON VENT/TRACH, F/C IN PLACE, DRAINING CLEAR, YELLOW URINE, KEPT ENVELOPE ADDRESSER BED.
[2021-01-27 07:31] LABS: CALCIUM, SERUM 9.9 mg/dL (8.5-10.1); CREATININE 1.6 mg/dL (0.6-1.3); MAGNESIUM 2.2 mg/dL (1.8-2.4); PHOSPHORUS 4.1 mg/dL (2.5-4.9); POTASSIUM 4.5 mmol/L (3.5-5.1)
[2021-01-27] MEDS: BUDESONIDE RESPULE INH 0.25 MG/2 ML AMPUL.NEB NEB SCH ×2 (07:44→20:06)
[2021-01-27 08:33] VITALS: BP 131/58
[2021-01-27 08:34] LABS: EOSINOPHILS % (MANUAL) 2 % (0-4); LYMPHOCYTES % (MANUAL) 14 % (16-48); MONOCYTES % (MANUAL) 8 % (0-11.0); NEUTROPHILS % (MANUAL) 76 (42-76)
[2021-01-27] MEDS: PANTOPRAZOLE 40 MG TABLET.DR PO SCH (08:36)
[2021-01-27] MEDS: LACTULOSE 10 G/15 ML UDC (PYXIS) GT SCH ×3 (08:37→17:08)
[2021-01-27] MEDS: POTASSIUM CHLORIDE 20 MEQ TAB.PRT.SR PO SCH (08:37)
[2021-01-27] MEDS: MAGNESIUM OXIDE 400 MG TABLET GT SCH (08:37)
[2021-01-27] MEDS: LEVETIRACETAM (250 MG) 250 MG TABLET PO SCH ×2 (08:37→17:09)
[2021-01-27] MEDS: GABAPENTIN 100 MG CAPSULE GT SCH ×2 (08:37→17:09)
[2021-01-27] MEDS: ASPIRIN 81 MG TAB.CHEW GT SCH (08:38)
[2021-01-27] MEDS: ALLOPURINOL 100 MG TABLET GT SCH ×2 (08:38→17:09)
[2021-01-27] MEDS: AMLODIPINE BESYLATE 5 MG TABLET GT SCH ×2 (08:38→22:33)
[2021-01-27] MEDS: FAMOTIDINE (20 MG) 20 MG TABLET GT SCH ×2 (08:38→17:09)
[2021-01-27] MEDS: POLYETHYLENE GLYCOL 3350 17 GM POWD.PACK GT SCH (08:38)
[2021-01-27] MEDS: FUROSEMIDE 40 MG/4 ML VIAL IV SCH (08:39)
[2021-01-27] MEDS: FLUTICASONE PROPIONATE 16 GM BOTTLE NS SCH ×2 (09:00→17:00)
[2021-01-27] MEDS: THERAHONEY GEL 1.5 OZ TUBE TP SCH (09:01)
--- NOTE | 2021-01-27 12:36 | NUR ---
CHEMICAL ANALYTICAL SAMPLER NOTES PT IN BED, RESTING, NO COMPLAINT AT THIS TIME, GT FEEDING INFUSING WELL, SEEN BY DR. CASTRO, NO NEW ORDER RECEIVED AT THIS TIME.
[2021-01-27 16:00] VITALS: BP 133/56
[2021-01-27] MEDS: GLUCERNA 1.2 1,000 ML BOTTLE NG PRN (17:05)
--- NOTE | 2021-01-27 18:38 | NUR ---
SPREAD CUTTER NOTES PT IN BED, RESTING, PAIN MEDS GIVEN ORDERED, PM MEDS GIVEN, PM CARE PROVIDED, WOUND TREATMENT AND DRESSING CHANGE DONE, F/C IN PLACE, REPOSITIONED FOR COMFORT, GT FEEDING INFUSING WELL, KEPT WARM AND COMFORTABLE.
--- NOTE | 2021-01-27 19:20 | NUR ---
GAUGE CONTROLLER OPENING NOTES: RECEIVED PATIENT IN BED, AWAKE, A/O X4, ONLY MOUTH WORDS. NO S/S OF DISTRESS NOTED. CALL LIGHT WITHIN REACH. BED IN LOWEST AND LOCKED POSITION. HOB ELEVATED AT ALL TIMES. NO COMPLAIN OF PAIN. WITH GT FEEDING GLUCERNA RUNNING AT 70ML/ HOUR. WITH BULLARD CATHETER INTACT DRAINING CLEAR YELLOW URINE OUTPUT.
[2021-01-27 20:00] VITALS: BP 145/72
--- NOTE | 2021-01-27 20:34 | NUR ---
HAD BM AGAIN, BLOODY WATERY STOOL WITH SOME PARTICLES. Addendum: 01/27/21 at 2034 by CIRO SIMPSON RN WRONG PATIENT.
--- NOTE | 2021-01-27 22:00 | NUR ---
GT RESIDUAL CHECKED= NO RESIDUAL NOTED. GT FLUSHED WITH WATER 200ML. DRESSING CHANGED. WITH SMALL AMOUNT OF YELLOWISH,BROWNISH,BLACKISH EXUDATE ON THE OLD GAUZE. NO LEAKING NOTED. PATIENT REFUSED HEELS OFFLOADED. TURNED AND REPOSITIONED. HOB ELEVATED. COMPLAINED OF RIGHT SHOULDER ITCHINESS, ZYRTEC GIVEN PER GT, LOTION APPLIED.
[2021-01-27] MEDS: ATORVASTATIN 10 MG TABLET PO SCH (22:33)
[2021-01-27] MEDS: INSULIN GLARGINE, 100 UNIT/ML CARTRIDGE SQ SCH (23:04)
[2021-01-28] VITALS: BP_SYST 126; BP_SYST 142; BP_DIAS 59; BP_DIAS 69
--- NOTE | 2021-01-28 02:31 | NUR ---
GT FLUSHED WITH WATER 200ML.
[2021-01-28 04:00] VITALS: BP 142/63
[2021-01-28] MEDS: MORPHINE SULFATE INJ 4 MG/ML DISP.SYRIN IV PRN ×4 (05:37→21:22)
[2021-01-28] MEDS: CEFTRIAXONE 1 G in IV D5W 50 ML IV SCH (05:37)
--- NOTE | 2021-01-28 06:54 | NUR ---
AMERICAN INDIAN STUDIES PROFESSOR CLOSING NOTES: PATIENT IN BED, ASLEEP, AROUSABLE, HOB ELEVATED AT ALL TIMES. NO S/S OF DISTRESS NOTED. CALL LIGHT WITHIN REACH. BED IN LOWEST AND LOCKED POSITION. TURNED AND REPOSITIONED Q2 HOURS, HEELS OFFLOADED. WITH GT FEEDING RUNNING AT 70ML/HOUR. WITH TRACH INTACT, DRESSING IS CLEAN, DRY AND INTACT. SUCTIONED TRACH AND ORAL SECRETIONS. COMPLAINED OF PAIN ON THE LOWER BACK AND BILATERAL LEGS MORPHINE 4MG IV GIVEN. PATIENT REQUESTED THE RT, RT CAME AND SEEN THE PATIENT. BILATERAL BUTTOCKS WOUND TREATMENTS AND DRESSINGS CHANGED ORDERED.
--- NOTE | 2021-01-28 07:30 | NUR ---
AUTOMATION SOFTWARE ENGINEER NOTES PT IN BED, AWAKE, ALERT AND ORIENTED, DENIES PAIN AT THIS TIME, BREATHING PATTERN NORMAL, CALL LIGHT WITHIN REACH.
[2021-01-28] MEDS: BUDESONIDE RESPULE INH 0.25 MG/2 ML AMPUL.NEB NEB SCH ×2 (07:45→20:09)
[2021-01-28 08:00] VITALS: BP 153/70
[2021-01-28] MEDS: FAMOTIDINE (20 MG) 20 MG TABLET GT SCH ×2 (08:34→16:40)
[2021-01-28] MEDS: ALLOPURINOL 100 MG TABLET GT SCH ×2 (08:34→16:40)
[2021-01-28] MEDS: ASPIRIN 81 MG TAB.CHEW GT SCH (08:34)
[2021-01-28] MEDS: POTASSIUM CHLORIDE 20 MEQ TAB.PRT.SR PO SCH (08:35)
[2021-01-28] MEDS: GABAPENTIN 100 MG CAPSULE GT SCH ×2 (08:35→16:40)
[2021-01-28] MEDS: MAGNESIUM OXIDE 400 MG TABLET GT SCH (08:35)
[2021-01-28] MEDS: AMLODIPINE BESYLATE 5 MG TABLET GT SCH ×2 (08:36→21:23)
[2021-01-28] MEDS: LEVETIRACETAM (250 MG) 250 MG TABLET PO SCH ×2 (08:36→16:40)
[2021-01-28] MEDS: POLYETHYLENE GLYCOL 3350 17 GM POWD.PACK GT SCH (08:36)
[2021-01-28] MEDS: PANTOPRAZOLE 40 MG TABLET.DR PO SCH (08:36)
[2021-01-28] MEDS: FUROSEMIDE 40 MG/4 ML VIAL IV SCH (08:37)
[2021-01-28] MEDS: LACTULOSE 10 G/15 ML UDC (PYXIS) GT SCH ×3 (08:37→16:39)
[2021-01-28] MEDS: FLUTICASONE PROPIONATE 16 GM BOTTLE NS SCH ×2 (09:00→16:30)
[2021-01-28 09:03] LABS: CALCIUM, SERUM 9.3 mg/dL (8.5-10.1); CREATININE 1.7 mg/dL (0.6-1.3); POTASSIUM 4.7 mmol/L (3.5-5.1)
[2021-01-28] MEDS: THERAHONEY GEL 1.5 OZ TUBE TP SCH (09:44)
[2021-01-28 12:09] LABS: BASOPHILS # (AUTO) 0.1 K/uL (0.0-0.2); BASOPHILS % (AUTO) 0.6 % (0.0-2.0); EOSINOPHILS % (AUTO) 3.2 % (0.0-6.0); HEMATOCRIT 25 % (33-45); LYMPHOCYTES % (AUTO) 10.8 % (20.0-44.0); MEAN CORPUSCULAR HGB CONC 32 g/dl (31.0-36.0); MEAN CORPUSCULAR VOLUME 93 fL (82-100); MONOCYTES # (AUTO) 0.5 K/uL (0.1-1.30); MONOCYTES % (AUTO) 5.1 % (2.0-12.0); NEUTROPHILS # (AUTO) 7.4 K/uL (1.8-8.9); NEUTROPHILS % (AUTO) 80.3 % (43.0-81.0); PLATELET COUNT (AUTO) 290 K/uL (150-450); RED BLOOD CELL COUNT(AUTO) 2.73 MIL/uL (4.0-5.2); WHITE BLOOD COUNT (AUTO) 9.2 K/uL (4.3-11.0)
[2021-01-28] MEDS: GLUCERNA 1.2 1,000 ML BOTTLE NG PRN (12:17)
[2021-01-28] MEDS: EPOETIN ALFA-EPBX 4,000 UNIT/ML VIAL SQ SCH (15:15)
[2021-01-28 16:00] VITALS: BP 133/65
--- NOTE | 2021-01-28 19:00 | NUR ---
SOLAR ELECTRIC PRACTITIONER NOTES PT IN BED, RESTING, PAIN MEDS GIVEN ORDERED, NO SOB NOTED, SUCTIONED SECRETIONS NEEDED, PM CARE RENDERED, GT FEEDING INFUSING WELL, WOUND TREATMENT AND DRESSING CHANGE DONE, REPOSITIONED FOR COMFORT, KEPT WARM AND COMFORTABLE IN BED.
[2021-01-28 20:00] VITALS: BP 154/92
--- NOTE | 2021-01-28 21:00 | NUR ---
GT FEEDING RESIDUAL CHECKED=NONE. GT FLUSHED WITH 200ML WATER.
[2021-01-28] MEDS: ACETAMINOPHEN 325 MG TABLET PO PRN (21:22)
[2021-01-28] MEDS: ATORVASTATIN 10 MG TABLET PO SCH (21:23)
[2021-01-28] MEDS: INSULIN GLARGINE, 100 UNIT/ML CARTRIDGE SQ SCH (22:38)
[2021-01-29] MEDS: GLUCERNA 1.2 1,000 ML BOTTLE NG PRN (02:23)
[2021-01-29 04:00] VITALS: BP 149/78
[2021-01-29] MEDS: THERAHONEY GEL 1.5 OZ TUBE TP SCH (05:04)
[2021-01-29] MEDS: MORPHINE SULFATE INJ 4 MG/ML DISP.SYRIN IV PRN ×2 (06:02→15:08)
[2021-01-29 07:17] LABS: BASOPHILS # (AUTO) 0.1 K/uL (0.0-0.2); EOSINOPHILS % (AUTO) 3.8 % (0.0-6.0); HEMATOCRIT 30 % (33-45); HEMOGLOBIN 9.5 g/dL (11.5-14.8); LYMPHOCYTES # (AUTO) 1.6 K/uL (0.8-4.8); LYMPHOCYTES % (AUTO) 17.5 % (20.0-44.0); MEAN CORPUSCULAR HGB CONC 32 g/dl (31.0-36.0); MEAN CORPUSCULAR VOLUME 93 fL (82-100); MONOCYTES # (AUTO) 0.7 K/uL (0.1-1.30); MONOCYTES % (AUTO) 7.6 % (2.0-12.0); NEUTROPHILS # (AUTO) 6.4 K/uL (1.8-8.9); NEUTROPHILS % (AUTO) 70.1 % (43.0-81.0); PLATELET COUNT (AUTO) 375 K/uL (150-450); RED BLOOD CELL COUNT(AUTO) 3.18 MIL/uL (4.0-5.2); WHITE BLOOD COUNT (AUTO) 9.1 K/uL (4.3-11.0)
[2021-01-29 07:28] LABS: CALCIUM, SERUM 9.2 mg/dL (8.5-10.1); CREATININE 1.8 mg/dL (0.6-1.3)
--- NOTE | 2021-01-29 07:28 | NUR ---
HYDRODYNAMICIST OPENING NOTES RECEIVED PT AWAKE IN BED, A/O X3. ABLE TO VERBALIZE NEEDS IN SHORT WORDS; NO ACUTE DISTRESS NOTED. HOB ELEVATED. DENIES PAIN AT THIS TIME. PT ON TRACH SHILEY #5 XLT CONNECTED TO [facility] VENTILATOR AND TOLERATING WELL WITH NO SOB NOTED, SP02 100%. PT ON TELE MONITOR WITH CURRENT READING OF SB, HR ON THE 50'S, NO C/O CARDIAC DISTRESS VOICED. RIGHT UPPER MIDLINE #18G SL INTACT AND PATENT. G-TUBE IN PLACE W/ FEEDING OF GLUCERNA 1.2 @ 70ML/HR IN PROGRESS, TOLERATING WELL. ASPIRATION PRECAUTIONS MAINTAINED. BULLARD CATHETER IN PLACE WITH SLIGHTLY CLOUDY YELLOW URINE OUTPUT NOTED. SAFETY MEASURES IN PLACE: CALL LIGHT WITHIN REACH, BED LOCKED IN LOWEST POSITION, BED ALARM ON AND SR UP X3. WILL CONTINUE TO MONITOR PT.
[2021-01-29] MEDS: BUDESONIDE RESPULE INH 0.25 MG/2 ML AMPUL.NEB NEB SCH (07:47)
--- NOTE | 2021-01-29 07:47 | NUR ---
RT Pt received awake and alert trached on mechanical ventilation with noted settings. Vent is plugged into red outlet, BVM and spare trach (same size) by bedside. No SOB or respiratory distress noted. Addendum: 01/29/21 at 1246 by NIECY BEJARANO RT Amended: Links added.
[2021-01-29] MEDS: FAMOTIDINE (20 MG) 20 MG TABLET GT SCH ×2 (08:10→17:20)
[2021-01-29] MEDS: FUROSEMIDE 40 MG/4 ML VIAL IV SCH (08:10)
[2021-01-29] MEDS: LACTULOSE 10 G/15 ML UDC (PYXIS) GT SCH ×3 (08:10→17:15)
[2021-01-29] MEDS: LEVETIRACETAM (250 MG) 250 MG TABLET PO SCH ×2 (08:10→17:20)
[2021-01-29] MEDS: GABAPENTIN 100 MG CAPSULE GT SCH ×2 (08:10→17:20)
[2021-01-29] MEDS: MAGNESIUM OXIDE 400 MG TABLET GT SCH (08:10)
[2021-01-29] MEDS: POTASSIUM CHLORIDE 20 MEQ TAB.PRT.SR PO SCH (08:10)
[2021-01-29] MEDS: POLYETHYLENE GLYCOL 3350 17 GM POWD.PACK GT SCH (08:11)
[2021-01-29] MEDS: PANTOPRAZOLE 40 MG TABLET.DR PO SCH (08:11)
[2021-01-29] MEDS: ASPIRIN 81 MG TAB.CHEW GT SCH (08:11)
[2021-01-29] MEDS: ALLOPURINOL 100 MG TABLET GT SCH ×2 (08:11→17:20)
[2021-01-29 08:15] VITALS: BP 138/80
[2021-01-29] MEDS: AMLODIPINE BESYLATE 5 MG TABLET GT SCH (08:15)
[2021-01-29] MEDS ORDERED: FUROSEMIDE 40 MG TABLET PO SCH (09:00)
[2021-01-29] MEDS: FLUTICASONE PROPIONATE 16 GM BOTTLE NS SCH ×2 (09:03→17:28)
--- NOTE | 2021-01-29 18:41 | NUR ---
RN DISCHARGED NOTES PT DISCHARGED TO ALL [facility] IN STABLE CONDITION. PT IS A/O X 3-4. ABLE TO [place] NEEDS KNOWN. V/S TAKEN, STABLE AND RECORDED. CALLED AND REPORT GIVEN EARLIER TO KOFFI, CHARGE NURSE OF ALL [facility]. INFORMED ALSO PT'S SISTER JONATHAN ALVES VIA TELEPHONE. PHOTO OF ULCER ON BUTTOCKS TAKEN AND FILED IN CHART. PT HAS NO BELONGINGS. DMITRI MIDLINE REMOVED WITH NO ACTIVE BLEEDING NOTED, DRY DRESSING APPLIED TO SITE. BULLARD AND GTUBE KEPT IN PLACE AND BOTH PATENT. PT LEFT UNIT AT 1840 ACCOMPANIED BY 4 EMT'S AND ONE RT FROM [facility]. MD AND CHARGE NURSE AWARE OF DISCHARGE.
== END 2021-01-29 18:45 | DRG 166 ==
LOC: TELE 03:47
PROVIDERS: ADMIT Nurse Practitioner Acute Care; ATTEND Internal Medicine
PROC: 5A1955Z Respiratory Ventilation, Greater than 96 Consecutive Hours (ICD-10-PCS; 2021-01-21)
PROC: 0JB90ZZ Excision of Buttock Subcutaneous Tissue and Fascia, Open Approach (ICD-10-PCS; principal; 2021-01-22)
DX: J95.851 Ventilator associated pneumonia (principal); L89.94 Pressure ulcer of unspecified site, stage 4; J15.9 Unspecified bacterial pneumonia; R53.2 Functional quadriplegia; G93.41 Metabolic encephalopathy; I50.33 Acute on chronic diastolic (congestive) heart failure; N39.0 Urinary tract infection, site not specified; J96.10 Chronic respiratory failure, unspecified whether with hypoxia or hypercapnia; Z99.11 Dependence on respirator [ventilator] status; I13.0 Hypertensive heart and chronic kidney disease with heart failure and stage 1 through stage 4 chronic kidney disease, or unspecified chronic kidney disease; Z68.43 Body mass index [BMI] 50.0-59.9, adult; J44.0 Chronic obstructive pulmonary disease with (acute) lower respiratory infection; J44.1 Chronic obstructive pulmonary disease with (acute) exacerbation; E87.1 Hypo-osmolality and hyponatremia; G61.0 Guillain-Barre syndrome; N17.9 Acute kidney failure, unspecified; F41.9 Anxiety disorder, unspecified; Y82.9 Unspecified medical devices associated with adverse incidents; Y92.9 Unspecified place or not applicable; E11.22 Type 2 diabetes mellitus with diabetic chronic kidney disease; N18.9 Chronic kidney disease, unspecified; Y84.8 Other medical procedures as the cause of abnormal reaction of the patient, or of later complication, without mention of misadventure at the time of the procedure; R13.10 Dysphagia, unspecified; Z93.1 Gastrostomy status; Z87.01 Personal history of pneumonia (recurrent); E66.01 Morbid (severe) obesity due to excess calories; D64.9 Anemia, unspecified; Z93.0 Tracheostomy status; I25.10 Atherosclerotic heart disease of native coronary artery without angina pectoris; Y95 Nosocomial condition
CPT/HCPCS: 31720; 36415; 71045-TC; 80048-TC; 80053-TC; 81001; 82962-TC; 83735-TC; 83880; 84100-TC; 84443-TC; 85025-TC; 86850-TC; 87040-TC; 87081-TC; 87086-TC; 94003-TC; 94760-TC; 94762-TC; 94799-TC; A6253; A6403; A7526; G0378; J0456; J0696; J0885; J1650; J1815; J1940; J2270; J3475; J3490; J7050; J7060; J8610; P9016

== ENCOUNTER 2023-03-09 11:08 | Inpatient (IN) | payer MEDICARE, OTHER ==
[~2023-03-09] VITALS: Ht 172.7 cm; Wt 120.2 kg
[~2023-03-09 11:08] MED LIST changes: +ACET-2605 GT; -ACID1TAB12 PO; +ALLO100T GT; -AMLO2.5T4 PO; +AMLO5TAB4 GT; +BUDE1AMP IH; -CALC500T13 PO; +CETI-90 GT; -DOCU50LI PO; +DORZ10DR10 EACHEYE; +EPOE1VIA6 IJ; -FERR325T28 PO; +FLUT9.9S16 NS; +FOLI1TAB16 GT; -FOLI1TAB16 PO; +GABA-532 GT; +HYDR-4076 GT; -HYDR-4384 PO; -HYDR10SY16 PO; -HYDR2TAB4 PO; +INSU100V10 SQ; -LEVO750T21 PO; -LISI30TA4 PO; -LORA0.5T PO; -MAGN296S72 PO; +MAGN400O6 GT; -MAGN400O6 PO; +MAGN400T8 GT; -METF-440 PO; +METH2.5T GT; +MIDO10TA GT; -NUT.100029 PO; +ONDA4TAB5 GT; -ONDA4TAB5 PO; +OXYC-128 GT; -OXYC-128 PO; +POLY17PO4 GT; +POTA20PA41 GT; -PREG75CA PO; -SERT-437 PO; +SERT50TA GT; +SIME80TA15 GT; -SIME80TA15 PO
[2023-03-09] MEDS ORDERED: OXYC1TAB12 GT (12:44)
[2023-03-09] MEDS ORDERED: CALCIUM ALGINATE TD (12:44)
[2023-03-09] MEDS ORDERED: APIX2.5T GT (12:44)
[2023-03-09] MEDS ORDERED: AMIN30LI2 GT (12:44)
[2023-03-09] MEDS ORDERED: INSU100I4 SQ (12:44)
[2023-03-09] MEDS ORDERED: MIDO10TA GT (12:44)
[2023-03-09] MEDS ORDERED: FERR325T23 GT (12:44)
[2023-03-09] MEDS ORDERED: HYDR-4075 GT (12:44)
[2023-03-09] MEDS ORDERED: PANT40SU2 GT (12:44)
[2023-03-09] MEDS ORDERED: LIDO20SO13 TOP (12:44)
[2023-03-09] MEDS ORDERED: SEVE800T8 GT (12:44)
[2023-03-09] MEDS ORDERED: MORP20SO GT (12:44)
[2023-03-09] MEDS ORDERED: BISA10SU11 RC (12:44)
[2023-03-09] MEDS ORDERED: FOLI0.8T2 GT (12:44)
[2023-03-09] MEDS ORDERED: COLL30OI TP (12:44)
[2023-03-09] MEDS ORDERED: SODI480S2 TOP (12:44)
[2023-03-09] MEDS ORDERED: BENZ1LOZ58 MM (12:44)
[2023-03-09] MEDS ORDERED: ACET650S26 GT (12:44)
[2023-03-09] MEDS ORDERED: POLY17PO4 GT (12:44)
[2023-03-09] MEDS ORDERED: ISOS20TA8 GT (12:44)
[2023-03-09] MEDS ORDERED: ARGI1POW13 GT (12:44)
[2023-03-09] MEDS ORDERED: FLUT16SP16 (12:44)
[2023-03-09] MEDS ORDERED: EPOE200014 IJ (12:44)
[2023-03-09] MEDS ORDERED: SODI325T GT (12:44)
[2023-03-09] MEDS ORDERED: VANC750F2 IV (12:44)
[2023-03-09] MEDS ORDERED: POLY15DR40 EACHEYE (12:44)
[2023-03-09] MEDS ORDERED: NEO/5DRO3 LEFTEYE (12:44)
[2023-03-09] MEDS ORDERED: GUAI-960 GT (12:44)
[2023-03-09] MEDS ORDERED: HYDR170P TP (12:44)
[2023-03-09] MEDS ORDERED: PREG75CA GT (12:47)
[2023-03-09 13:00] VITALS: BP 137/60; TEMP 98; O2SAT 100
[2023-03-09] MEDS ORDERED: Z GUARD REMEDY 4 OZ OINT TP PRN (13:00)
[2023-03-09] MEDS ORDERED: VANCOMYCIN 1.25 GM in IV D5W 250 ML IV ONE (14:00)
[2023-03-09 17:00] VITALS: BP 123/60; TEMP 98.4; O2SAT 100
[2023-03-09] MEDS: NEPRO 1,000 ML BOTTLE GT PRN (17:15)
[2023-03-09 21:00] VITALS: BP 150/52; TEMP 98; O2SAT 100
[2023-03-09] MEDS: HEPARIN SODIUM, PORCINE 5000 UNITS/1 ML VIAL SQ SCH (21:50)
[2023-03-10 01:00] VITALS: BP 116/59; TEMP 98; O2SAT 100
[2023-03-10 05:00] VITALS: BP 149/50; TEMP 98; O2SAT 100
[2023-03-10] MEDS: CEFEPIME 1 GM in IV D5W 50 ML IV SCH (06:06)
[2023-03-10] MEDS: MORPHINE SULFATE INJ 2 MG/ML DISP.SYRIN IV PRN ×2 (06:25→13:43)
[2023-03-10 06:40] LABS: BASOPHILS # (AUTO) 0.1 K/uL (0.0-0.2); BASOPHILS % (AUTO) 0.9 % (0.0-2.0); EOSINOPHILS # (AUTO) 0.9 K/uL (0.0-0.7); EOSINOPHILS % (AUTO) 6.9 % (0.0-6.0); HEMATOCRIT 26 % (33-45); HEMOGLOBIN 7.7 g/dL (11.5-14.8); LYMPHOCYTES # (AUTO) 1.1 K/uL (0.8-4.8); LYMPHOCYTES % (AUTO) 8.5 % (20.0-44.0); MEAN CORPUSCULAR HEMOGLOBIN 32 PG (26.0-33.0); MEAN CORPUSCULAR HGB CONC 30 g/dl (31.0-36.0); MEAN CORPUSCULAR VOLUME 105 fL (82-100); MONOCYTES # (AUTO) 0.3 K/uL (0.1-1.30); MONOCYTES % (AUTO) 2.1 % (2.0-12.0); NEUTROPHILS # (AUTO) 10.3 K/uL (1.8-8.9); NEUTROPHILS % (AUTO) 81.6 % (43.0-81.0); PLATELET COUNT (AUTO) 140 K/uL (150-450); RED BLOOD CELL COUNT(AUTO) 2.46 MIL/uL (4.0-5.2); WHITE BLOOD COUNT (AUTO) 12.6 K/uL (4.3-11.0)
[2023-03-10 08:23] LABS: CALCIUM, SERUM 9.2 mg/dL (8.5-10.1); PHOSPHORUS 5.6 mg/dL (2.5-4.9); POTASSIUM 4.4 mmol/L (3.5-5.1)
[2023-03-10 08:34] LABS: THYROID STIMULATING HORMONE 1.177 uIU/mL (0.358-3.74)
[2023-03-10] MEDS: PANTOPRAZOLE 40 MG TABLET.DR PO SCH (08:43)
[2023-03-10] MEDS: HYDROCODONE/APAP 5/325MG TABLET GT PRN ×2 (08:46→16:27)
[2023-03-10] MEDS: DAKINS QUARTER STRENGTH (0.125%) 480 ML BOTTLE TOP SCH ×2 (08:56→22:38)
[2023-03-10] MEDS: CLOTRIMAZOLE 1% 15 GM TUBE TP SCH ×3 (08:56→22:39)
[2023-03-10 09:00] VITALS: BP 97/67; TEMP 99; O2SAT 100
[2023-03-10] MEDS: HEPARIN SODIUM, PORCINE 5000 UNITS/1 ML VIAL SQ SCH ×2 (09:00→21:20)
[2023-03-10 11:48] LABS: ABG BASE EXCESS -0.7 mmol/L; ABG OXYGEN SATURATION 95.2 % (92.0-98.5); ABG PCO2 35.8 mmHg (35.0-45.0); ABG PH 7.433 (7.350-7.450); ABG PO2 80.9 mmHg (75.0-100.0); AaDO2 163.1 mmHg; COHb 1.1 % (0.5-1.5); MetHb 0.3 % (0.0-1.5); O2Hb 93.9 % (94.0-97.0); PEEP,BG 5 cm H2O; SITE, ABG Left Radial; VENT MODE, BG ACVC; VT, ABG 550 mL
[2023-03-10 13:00] VITALS: BP 98/66; TEMP 98.5; O2SAT 100
[2023-03-10 17:09] VITALS: BP 114/66; TEMP 99.3; O2SAT 100
[2023-03-10 21:00] VITALS: BP 110/67; TEMP 99.5; O2SAT 100; O2SAT 93
[2023-03-10] MEDS: NEPRO 1,000 ML BOTTLE GT PRN (21:23)
[2023-03-11] VITALS (10 sets, daily range): BP systolic 92–130; BP diastolic 54–75; TEMP 98.2–101.8; O2SAT 100
[2023-03-11] MEDS: ACETAMINOPHEN 325 MG TABLET PO PRN ×2 (00:09→17:50)
[2023-03-11] MEDS: HYDROCODONE/APAP 5/325MG TABLET GT PRN (02:17)
[2023-03-11] MEDS: CEFEPIME 1 GM in IV D5W 50 ML IV SCH (05:27)
[2023-03-11 07:46] LABS: BASOPHILS # (AUTO) 0.1 K/uL (0.0-0.2); BASOPHILS % (AUTO) 1.1 % (0.0-2.0); EOSINOPHILS # (AUTO) 0.7 K/uL (0.0-0.7); HEMATOCRIT 21 % (33-45); LYMPHOCYTES # (AUTO) 1.1 K/uL (0.8-4.8); LYMPHOCYTES % (AUTO) 12.4 % (20.0-44.0); MEAN CORPUSCULAR HEMOGLOBIN 32 PG (26.0-33.0); MEAN CORPUSCULAR HGB CONC 31 g/dl (31.0-36.0); MEAN CORPUSCULAR VOLUME 102 fL (82-100); MONOCYTES # (AUTO) 0.2 K/uL (0.1-1.30); NEUTROPHILS % (AUTO) 76.5 % (43.0-81.0); PLATELET COUNT (AUTO) 103 K/uL (150-450); RED CELL DISTRIBUTION WIDTH 17.5 % (11.5-15.0); WHITE BLOOD COUNT (AUTO) 9.2 K/uL (4.3-11.0)
[2023-03-11] MEDS: PANTOPRAZOLE 40 MG TABLET.DR PO SCH (07:47)
[2023-03-11 07:50] LABS: HEMOGLOBIN 6.3 g/dL (11.5-14.8)
[2023-03-11 08:12] LABS: BILIRUBIN,TOTAL 0.4 mg/dL (0.2-1.0); CREATININE 4.5 mg/dL (0.6-1.3); MAGNESIUM 1.5 mg/dL (1.8-2.4); PHOSPHORUS 4.3 mg/dL (2.5-4.9); POTASSIUM 3.4 mmol/L (3.5-5.1); TOTAL PROTEIN, SERUM 5.8 g/dL (6.4-8.2)
[2023-03-11 08:37] LABS: ALBUMIN 1.2 g/dL (3.4-5.0)
[2023-03-11] MEDS: CLOTRIMAZOLE 1% 15 GM TUBE TP SCH ×3 (08:50→17:03)
[2023-03-11] MEDS: DAKINS QUARTER STRENGTH (0.125%) 480 ML BOTTLE TOP SCH ×2 (08:50→09:00)
[2023-03-11] MEDS: HEPARIN SODIUM, PORCINE 5000 UNITS/1 ML VIAL SQ SCH ×2 (08:51→20:40)
[2023-03-11 09:37] LABS: BASOPHILS % (MANUAL) 0 % (0.0-2.0); EOSINOPHILS % (MANUAL) 2 % (0-4); LYMPHOCYTES % (MANUAL) 11 % (16-48); MONOCYTES % (MANUAL) 6 % (0-11.0); NEUTROPHILS % (MANUAL) 81 (42-76)
[2023-03-11 09:38] LABS: ANISOCYTOSIS 1+; PLATELET ESTIMATE DECREASED
[2023-03-11] MEDS: ALBUMIN 25% 25 GM in PREMIX 1 EA IV PRN (17:05)
[2023-03-11] MEDS ORDERED: EPOETIN ALFA-EPBX 20,000 UNIT/ML VIAL SQ ONE (20:00)
[2023-03-11] MEDS: VANCOMYCIN 500 MG in IV D5W 100 ML IV PRN (20:37)
[2023-03-11] MEDS: MENTHOL/CETYLPYRD (CEPACOL) 1 LOZ LOZENGE PO PRN (20:40)
[2023-03-12] VITALS: BP 100/52; TEMP 98; O2SAT 100
[2023-03-12] MEDS: NEPRO 1,000 ML BOTTLE GT PRN (00:50)
[2023-03-12] MEDS: MENTHOL/CETYLPYRD (CEPACOL) 1 LOZ LOZENGE PO PRN ×2 (00:50→05:21)
[2023-03-12] MEDS: MORPHINE SULFATE INJ 2 MG/ML DISP.SYRIN IV PRN ×4 (03:25→17:52)
[2023-03-12 04:00] VITALS: BP 108/50; TEMP 98; O2SAT 100
[2023-03-12] MEDS: CEFEPIME 1 GM in IV D5W 50 ML IV SCH (05:05)
[2023-03-12 06:02] LABS: ALANINE AMINOTRANSFERASE < 6 U/L (12-78); ALBUMIN 1.8 g/dL (3.4-5.0); ALKALINE PHOSPHATASE 129 U/L (46-116); ASPARTATE AMINOTRANSFERASE 18 U/L (15-37); BILIRUBIN,TOTAL 0.6 mg/dL (0.2-1.0); CALCIUM, SERUM 9.3 mg/dL (8.5-10.1); CARBON DIOXIDE 23 mmol/L (21-32); CHLORIDE 106 mmol/L (98-107); GLUCOSE 204 mg/dL (74-106); MAGNESIUM 2.2 mg/dL (1.8-2.4); PHOSPHORUS 3.9 mg/dL (2.5-4.9); POTASSIUM 4.1 mmol/L (3.5-5.1); SODIUM SERUM 141 mmol/L (136-145); UREA NITROGEN, BLOOD 43 mg/dL (7-18)
[2023-03-12 07:21] LABS: BASOPHILS % (AUTO) 0.8 % (0.0-2.0); EOSINOPHILS # (AUTO) 0.2 K/uL (0.0-0.7); EOSINOPHILS % (AUTO) 4.7 % (0.0-6.0); HEMATOCRIT 24 % (33-45); HEMOGLOBIN 7.6 g/dL (11.5-14.8); LYMPHOCYTES % (AUTO) 19.7 % (20.0-44.0); MEAN CORPUSCULAR HEMOGLOBIN 31 PG (26.0-33.0); MEAN CORPUSCULAR HGB CONC 32 g/dl (31.0-36.0); MEAN CORPUSCULAR VOLUME 96 fL (82-100); MONOCYTES # (AUTO) 0.1 K/uL (0.1-1.30); MONOCYTES % (AUTO) 2.4 % (2.0-12.0); NEUTROPHILS # (AUTO) 3.6 K/uL (1.8-8.9); NEUTROPHILS % (AUTO) 72.4 % (43.0-81.0); PLATELET COUNT (AUTO) 85 K/uL (150-450); RED BLOOD CELL COUNT(AUTO) 2.46 MIL/uL (4.0-5.2); RED CELL DISTRIBUTION WIDTH 18.3 % (11.5-15.0); WHITE BLOOD COUNT (AUTO) 4.9 K/uL (4.3-11.0)
[2023-03-12 08:00] VITALS: BP 109/59; TEMP 98.3; O2SAT 100
[2023-03-12] MEDS: PANTOPRAZOLE 40 MG TABLET.DR PO SCH (08:27)
[2023-03-12] MEDS: HEPARIN SODIUM, PORCINE 5000 UNITS/1 ML VIAL SQ SCH ×2 (09:00→20:20)
[2023-03-12] MEDS: CLOTRIMAZOLE 1% 15 GM TUBE TP SCH ×2 (09:20→17:50)
[2023-03-12] MEDS: PROSOURCE / PROSTAT (PYXIS) 30 ML UDC GT SCH (09:20)
[2023-03-12] MEDS: DAKINS QUARTER STRENGTH (0.125%) 480 ML BOTTLE TOP SCH (09:20)
[2023-03-12 12:00] VITALS: BP 96/49; TEMP 98.9; O2SAT 100
[2023-03-12 13:46] LABS: ANISOCYTOSIS 1+; BASOPHILS % (MANUAL) 0 % (0.0-2.0); EOSINOPHILS % (MANUAL) 6 % (0-4); LYMPHOCYTES % (MANUAL) 16 % (16-48); MONOCYTES % (MANUAL) 4 % (0-11.0); NEUTROPHILS % (MANUAL) 74 (42-76); PLATELET ESTIMATE DECREASED
[2023-03-12 16:00] VITALS: BP 99/50; TEMP 98.9; O2SAT 100
[2023-03-12 20:00] VITALS: BP 111/60; TEMP 98; O2SAT 99
[2023-03-13 00:30] VITALS: BP 97/43; TEMP 98.3; O2SAT 96
[2023-03-13 04:25] VITALS: BP 132/76; TEMP 100.2; O2SAT 99
[2023-03-13] MEDS: ACETAMINOPHEN 325 MG TABLET PO PRN (04:30)
[2023-03-13] MEDS: MORPHINE SULFATE INJ 2 MG/ML DISP.SYRIN IV PRN ×3 (04:30→22:04)
[2023-03-13] MEDS: CEFEPIME 1 GM in IV D5W 50 ML IV SCH (05:40)
[2023-03-13 06:29] LABS: BASOPHILS % (AUTO) 0.8 % (0.0-2.0); EOSINOPHILS # (AUTO) 0.2 K/uL (0.0-0.7); EOSINOPHILS % (AUTO) 5.1 % (0.0-6.0); HEMATOCRIT 23 % (33-45); HEMOGLOBIN 7.1 g/dL (11.5-14.8); LYMPHOCYTES # (AUTO) 0.7 K/uL (0.8-4.8); LYMPHOCYTES % (AUTO) 22.2 % (20.0-44.0); MEAN CORPUSCULAR HEMOGLOBIN 31 PG (26.0-33.0); MEAN CORPUSCULAR HGB CONC 31 g/dl (31.0-36.0); MEAN CORPUSCULAR VOLUME 98 fL (82-100); MONOCYTES # (AUTO) 0.1 K/uL (0.1-1.30); MONOCYTES % (AUTO) 2.9 % (2.0-12.0); NEUTROPHILS # (AUTO) 2.1 K/uL (1.8-8.9); PLATELET COUNT (AUTO) 70 K/uL (150-450); RED BLOOD CELL COUNT(AUTO) 2.31 MIL/uL (4.0-5.2); RED CELL DISTRIBUTION WIDTH 17.9 % (11.5-15.0); WHITE BLOOD COUNT (AUTO) 3.1 K/uL (4.3-11.0)
[2023-03-13 06:58] LABS: ALBUMIN 1.6 g/dL (3.4-5.0); BILIRUBIN,TOTAL 0.4 mg/dL (0.2-1.0); CALCIUM, SERUM 8.9 mg/dL (8.5-10.1); CREATININE 4.9 mg/dL (0.6-1.3); PHOSPHORUS 3.7 mg/dL (2.5-4.9); POTASSIUM 3.5 mmol/L (3.5-5.1); TOTAL PROTEIN, SERUM 6.8 g/dL (6.4-8.2)
[2023-03-13 08:00] VITALS: BP 100/66; TEMP 98.4; O2SAT 99
[2023-03-13] MEDS: PROSOURCE / PROSTAT (PYXIS) 30 ML UDC GT SCH ×2 (08:18→08:24)
[2023-03-13] MEDS: PANTOPRAZOLE 40 MG TABLET.DR PO SCH (08:18)
[2023-03-13] MEDS: HEPARIN SODIUM, PORCINE 5000 UNITS/1 ML VIAL SQ SCH ×2 (08:26→20:23)
[2023-03-13] MEDS: DAKINS QUARTER STRENGTH (0.125%) 480 ML BOTTLE TOP SCH (09:20)
[2023-03-13] MEDS: CLOTRIMAZOLE 1% 15 GM TUBE TP SCH ×2 (09:26→18:22)
[2023-03-13 12:00] VITALS: BP 96/50; TEMP 99.7; O2SAT 100
[2023-03-13] MEDS: NEPRO 1,000 ML BOTTLE GT PRN (12:00)
[2023-03-13 12:55] LABS: ANISOCYTOSIS 1+; BASOPHILS % (MANUAL) 0 % (0.0-2.0); EOSINOPHILS % (MANUAL) 10 % (0-4); LYMPHOCYTES % (MANUAL) 9 % (16-48); MONOCYTES % (MANUAL) 5 % (0-11.0); NEUTROPHILS % (MANUAL) 76 (42-76); PLATELET ESTIMATE DECREASED
[2023-03-13 16:00] VITALS: BP 112/73; TEMP 98.9; O2SAT 99
[2023-03-13 20:00] VITALS: BP 97/51; TEMP 99; O2SAT 100
[2023-03-14] VITALS (14 sets, daily range): BP systolic 108–146; BP diastolic 50–69; TEMP 98.2–99.6; O2SAT 97–100
[2023-03-14] MEDS: CEFEPIME 1 GM in IV D5W 50 ML IV SCH (05:35)
[2023-03-14] MEDS: NEPRO 1,000 ML BOTTLE GT PRN (06:07)
[2023-03-14] MEDS: PANTOPRAZOLE 40 MG TABLET.DR PO SCH (08:16)
[2023-03-14] MEDS: ALBUMIN 25% 25 GM in PREMIX 1 EA IV PRN (08:30)
[2023-03-14] MEDS: HEPARIN SODIUM, PORCINE 5000 UNITS/1 ML VIAL SQ SCH ×2 (09:00→20:58)
[2023-03-14] MEDS: CLOTRIMAZOLE 1% 15 GM TUBE TP SCH ×2 (09:43→17:13)
[2023-03-14] MEDS: DAKINS QUARTER STRENGTH (0.125%) 480 ML BOTTLE TOP SCH (09:43)
[2023-03-14] MEDS ORDERED: EPOETIN ALFA-EPBX 10,000 UNIT/ML VIAL IV ONE (10:00)
[2023-03-14] MEDS: VANCOMYCIN 500 MG in IV D5W 100 ML IV PRN (12:32)
[2023-03-14] MEDS: PROSOURCE / PROSTAT (PYXIS) 30 ML UDC GT SCH ×2 (13:10→17:13)
[2023-03-14] MEDS: HYDROCODONE/APAP 5/325MG TABLET GT PRN (14:19)
[2023-03-14 17:32] LABS: HEMOGLOBIN 7.6 g/dL (11.5-14.8)
[2023-03-15] VITALS: BP 123/75; TEMP 99; O2SAT 100
[2023-03-15 04:00] VITALS: BP 134/64; TEMP 99.3; O2SAT 100
[2023-03-15] MEDS: CEFEPIME 1 GM in IV D5W 50 ML IV SCH (05:46)
[2023-03-15] MEDS: NEPRO 1,000 ML BOTTLE GT PRN (05:52)
[2023-03-15 05:53] LABS: BASOPHILS % (AUTO) 0.2 % (0.0-2.0); EOSINOPHILS # (AUTO) 0.3 K/uL (0.0-0.7); EOSINOPHILS % (AUTO) 5.1 % (0.0-6.0); HEMATOCRIT 25 % (33-45); HEMOGLOBIN 8.1 g/dL (11.5-14.8); LYMPHOCYTES # (AUTO) 0.9 K/uL (0.8-4.8); LYMPHOCYTES % (AUTO) 14.3 % (20.0-44.0); MEAN CORPUSCULAR HEMOGLOBIN 31 PG (26.0-33.0); MEAN CORPUSCULAR HGB CONC 32 g/dl (31.0-36.0); MEAN CORPUSCULAR VOLUME 96 fL (82-100); MONOCYTES # (AUTO) 0.2 K/uL (0.1-1.30); MONOCYTES % (AUTO) 2.5 % (2.0-12.0); NEUTROPHILS % (AUTO) 77.9 % (43.0-81.0); RED BLOOD CELL COUNT(AUTO) 2.61 MIL/uL (4.0-5.2); RED CELL DISTRIBUTION WIDTH 17.1 % (11.5-15.0); WHITE BLOOD COUNT (AUTO) 6.4 K/uL (4.3-11.0)
[2023-03-15 05:58] LABS: PLATELET COUNT (AUTO) 41 K/uL (150-450)
[2023-03-15 06:05] LABS: ALBUMIN 1.5 g/dL (3.4-5.0); BILIRUBIN,TOTAL 0.4 mg/dL (0.2-1.0); CALCIUM, SERUM 9.6 mg/dL (8.5-10.1); CREATININE 4.2 mg/dL (0.6-1.3); MAGNESIUM 2.3 mg/dL (1.8-2.4); PHOSPHORUS 2.6 mg/dL (2.5-4.9); POTASSIUM 3.5 mmol/L (3.5-5.1); TOTAL PROTEIN, SERUM 6.9 g/dL (6.4-8.2)
[2023-03-15] MEDS: PANTOPRAZOLE 40 MG TABLET.DR PO SCH (07:46)
[2023-03-15] MEDS: PROSOURCE / PROSTAT (PYXIS) 30 ML UDC GT SCH ×2 (07:46→16:38)
[2023-03-15 08:00] VITALS: BP 143/68; TEMP 99.1; O2SAT 100
[2023-03-15] MEDS: HEPARIN SODIUM, PORCINE 5000 UNITS/1 ML VIAL SQ SCH (09:00)
[2023-03-15] MEDS: DAKINS QUARTER STRENGTH (0.125%) 480 ML BOTTLE TOP SCH (09:17)
[2023-03-15] MEDS: CLOTRIMAZOLE 1% 15 GM TUBE TP SCH ×2 (09:17→16:38)
[2023-03-15] MEDS ORDERED: DEXTROSE 50%-WATER 50 ML DISP.SYRIN IV PRN ×2 (10:00→10:30)
[2023-03-15] MEDS ORDERED: INSULIN REGULAR, HUMAN 100 UNIT/ML 3 ML VIAL SQ PRN (10:00)
[2023-03-15 11:56] LABS: ANISOCYTOSIS 1+; BASOPHILS % (MANUAL) 0 % (0.0-2.0); EOSINOPHILS % (MANUAL) 3 % (0-4); LYMPHOCYTES % (MANUAL) 11 % (16-48); MONOCYTES % (MANUAL) 5 % (0-11.0); NEUTROPHILS % (MANUAL) 81 (42-76); PLATELET ESTIMATE DECREASED
[2023-03-15 12:00] VITALS: BP 133/59; TEMP 99.2; O2SAT 100
[2023-03-15] MEDS ORDERED: BLOOD SUGAR DIAGNOSTIC 1 EACH STRIP IN SCH (12:00)
[2023-03-15] MEDS: BLOOD SUGAR DIAGNOSTIC 1 EACH STRIP IN SCH ×3 (13:47→21:30)
[2023-03-15] MEDS: INSULIN REGULAR, HUMAN 100 UNIT/ML 3 ML VIAL SQ PRN ×3 (13:50→21:32)
[2023-03-15] MEDS: MORPHINE SULFATE INJ 2 MG/ML DISP.SYRIN IV PRN (13:59)
[2023-03-15 16:00] VITALS: BP 149/70; TEMP 98.5; O2SAT 100
[2023-03-15 20:00] VITALS: BP 98/57; TEMP 99; O2SAT 100
[2023-03-16] VITALS (7 sets, daily range): BP systolic 112–145; BP diastolic 50–72; TEMP 98.2–99.9; O2SAT 97–100
[2023-03-16] MEDS: BLOOD SUGAR DIAGNOSTIC 1 EACH STRIP IN SCH ×5 (01:02→17:00)
[2023-03-16] MEDS: INSULIN REGULAR, HUMAN 100 UNIT/ML 3 ML VIAL SQ PRN ×5 (01:04→18:05)
[2023-03-16] MEDS: CEFEPIME 1 GM in IV D5W 50 ML IV SCH (05:37)
[2023-03-16 06:17] LABS: CALCIUM, SERUM 10.2 mg/dL (8.5-10.1); POTASSIUM 3.6 mmol/L (3.5-5.1)
[2023-03-16] MEDS: PROSOURCE / PROSTAT (PYXIS) 30 ML UDC GT SCH ×2 (08:08→16:14)
[2023-03-16] MEDS: CLOTRIMAZOLE 1% 15 GM TUBE TP SCH ×2 (08:09→16:15)
[2023-03-16] MEDS: PANTOPRAZOLE 40 MG TABLET.DR PO SCH (08:09)
[2023-03-16] MEDS: DAKINS QUARTER STRENGTH (0.125%) 480 ML BOTTLE TOP SCH (08:09)
[2023-03-16 12:12] LABS: BASOPHILS % (AUTO) 0.4 % (0.0-2.0); EOSINOPHILS # (AUTO) 0.5 K/uL (0.0-0.7); EOSINOPHILS % (AUTO) 7.1 % (0.0-6.0); HEMATOCRIT 26 % (33-45); HEMOGLOBIN 8.4 g/dL (11.5-14.8); LYMPHOCYTES # (AUTO) 1.3 K/uL (0.8-4.8); LYMPHOCYTES % (AUTO) 18.6 % (20.0-44.0); MEAN CORPUSCULAR HEMOGLOBIN 31 PG (26.0-33.0); MEAN CORPUSCULAR HGB CONC 32 g/dl (31.0-36.0); MEAN CORPUSCULAR VOLUME 96 fL (82-100); MONOCYTES # (AUTO) 0.3 K/uL (0.1-1.30); NEUTROPHILS # (AUTO) 4.7 K/uL (1.8-8.9); NEUTROPHILS % (AUTO) 68.9 % (43.0-81.0); RED BLOOD CELL COUNT(AUTO) 2.73 MIL/uL (4.0-5.2); RED CELL DISTRIBUTION WIDTH 17.4 % (11.5-15.0); WHITE BLOOD COUNT (AUTO) 6.8 K/uL (4.3-11.0)
[2023-03-16 12:15] LABS: PLATELET COUNT (AUTO) 35 K/uL (150-450)
[2023-03-16 12:59] LABS: ANISOCYTOSIS 1+; BASOPHILS % (MANUAL) 0 % (0.0-2.0); EOSINOPHILS % (MANUAL) 5 % (0-4); LYMPHOCYTES % (MANUAL) 17 % (16-48); MONOCYTES % (MANUAL) 6 % (0-11.0); NEUTROPHILS % (MANUAL) 72 (42-76); PLATELET ESTIMATE DECREASED
[2023-03-16] MEDS: VANCOMYCIN 500 MG in IV D5W 100 ML IV PRN (19:08)
[2023-03-16] MEDS: MORPHINE SULFATE INJ 2 MG/ML DISP.SYRIN IV PRN (22:10)
[2023-03-16] MEDS: NEPRO 1,000 ML BOTTLE GT PRN (22:11)
[2023-03-17] VITALS: BP 116/60; TEMP 98.2; O2SAT 99
[2023-03-17] MEDS: BLOOD SUGAR DIAGNOSTIC 1 EACH STRIP IN SCH ×4 (00:17→18:03)
[2023-03-17] MEDS: INSULIN REGULAR, HUMAN 100 UNIT/ML 3 ML VIAL SQ PRN ×4 (00:18→18:06)
[2023-03-17 04:00] VITALS: BP 121/65; TEMP 98; O2SAT 99
[2023-03-17] MEDS: CEFEPIME 1 GM in IV D5W 50 ML IV SCH (05:25)
[2023-03-17] MEDS: MORPHINE SULFATE INJ 2 MG/ML DISP.SYRIN IV PRN (05:25)
[2023-03-17 06:36] LABS: BASOPHILS % (AUTO) 0.3 % (0.0-2.0); EOSINOPHILS # (AUTO) 0.4 K/uL (0.0-0.7); EOSINOPHILS % (AUTO) 5.5 % (0.0-6.0); HEMATOCRIT 27 % (33-45); HEMOGLOBIN 9.1 g/dL (11.5-14.8); LYMPHOCYTES # (AUTO) 1.1 K/uL (0.8-4.8); LYMPHOCYTES % (AUTO) 16.5 % (20.0-44.0); MEAN CORPUSCULAR HEMOGLOBIN 31 PG (26.0-33.0); MEAN CORPUSCULAR HGB CONC 33 g/dl (31.0-36.0); MEAN CORPUSCULAR VOLUME 95 fL (82-100); MONOCYTES # (AUTO) 0.5 K/uL (0.1-1.30); MONOCYTES % (AUTO) 7.9 % (2.0-12.0); NEUTROPHILS # (AUTO) 4.6 K/uL (1.8-8.9); NEUTROPHILS % (AUTO) 69.8 % (43.0-81.0); PLATELET COUNT (AUTO) 81 K/uL (150-450); RED CELL DISTRIBUTION WIDTH 16.8 % (11.5-15.0); WHITE BLOOD COUNT (AUTO) 6.5 K/uL (4.3-11.0)
[2023-03-17 06:54] LABS: CALCIUM, SERUM 10.3 mg/dL (8.5-10.1); CREATININE 3.7 mg/dL (0.6-1.3)
[2023-03-17 07:34] LABS: POTASSIUM 6.9 mmol/L (3.5-5.1)
[2023-03-17 08:00] VITALS: BP 123/62; TEMP 98.5; O2SAT 100
[2023-03-17] MEDS: PROSOURCE / PROSTAT (PYXIS) 30 ML UDC GT SCH ×2 (08:14→17:21)
[2023-03-17] MEDS ORDERED: SODIUM POLYSTYRENE SULF. PWD 15 GM UDC PO ONE (09:00)
[2023-03-17] MEDS: DAKINS QUARTER STRENGTH (0.125%) 480 ML BOTTLE TOP SCH (09:39)
[2023-03-17] MEDS: CLOTRIMAZOLE 1% 15 GM TUBE TP SCH ×2 (09:40→17:22)
[2023-03-17 10:00] LABS: ANISOCYTOSIS 2+; EOSINOPHILS % (MANUAL) 4 % (0-4); LYMPHOCYTES % (MANUAL) 25 % (16-48); MONOCYTES % (MANUAL) 5 % (0-11.0); NEUTROPHILS % (MANUAL) 66 (42-76); PLATELET ESTIMATE DECREASED
[2023-03-17 12:00] VITALS: BP 119/58; TEMP 98.3; O2SAT 98
[2023-03-17] MEDS: NEPRO 1,000 ML BOTTLE GT PRN (15:11)
[2023-03-17 16:00] VITALS: BP 149/72; TEMP 98.4; O2SAT 100
[2023-03-17 20:00] VITALS: BP 170/78; TEMP 99.2; O2SAT 99
[2023-03-18] VITALS: BP 161/73; TEMP 98.8; O2SAT 99
[2023-03-18] MEDS: INSULIN REGULAR, HUMAN 100 UNIT/ML 3 ML VIAL SQ PRN ×4 (00:36→18:34)
[2023-03-18] MEDS: BLOOD SUGAR DIAGNOSTIC 1 EACH STRIP IN SCH ×4 (00:36→18:32)
[2023-03-18 04:00] VITALS: BP 124/62; TEMP 98.7; O2SAT 99
[2023-03-18] MEDS: CEFEPIME 1 GM in IV D5W 50 ML IV SCH (05:37)
[2023-03-18] MEDS: MORPHINE SULFATE INJ 2 MG/ML DISP.SYRIN IV PRN ×2 (05:37→11:37)
[2023-03-18 06:28] LABS: CALCIUM, SERUM 10.1 mg/dL (8.5-10.1); CREATININE 4.9 mg/dL (0.6-1.3)
[2023-03-18 08:00] VITALS: BP 124/70; TEMP 98.4; O2SAT 100
[2023-03-18] MEDS: PROSOURCE / PROSTAT (PYXIS) 30 ML UDC GT SCH ×2 (09:55→18:32)
[2023-03-18] MEDS: CLOTRIMAZOLE 1% 15 GM TUBE TP SCH ×2 (10:33→18:34)
[2023-03-18] MEDS: DAKINS QUARTER STRENGTH (0.125%) 480 ML BOTTLE TOP SCH (10:33)
[2023-03-18] MEDS: NEPRO 1,000 ML BOTTLE GT PRN (11:45)
[2023-03-18 12:00] VITALS: BP 143/97; TEMP 98; O2SAT 100
[2023-03-18] MEDS: ALBUMIN 25% 25 GM in PREMIX 1 EA IV PRN (12:07)
[2023-03-18] MEDS: SEVELAMER CARBONATE 800 MG POWD.PACK GT SCH ×2 (13:52→18:32)
[2023-03-18] MEDS: MIDODRINE HCL (5MG) 5 MG TABLET GT SCH ×2 (13:53→21:26)
[2023-03-18] MEDS: INSULIN GLARGINE, 100 UNIT/ML CARTRIDGE SQ SCH ×2 (14:00→21:41)
[2023-03-18] MEDS: VANCOMYCIN 500 MG in IV D5W 100 ML IV PRN (14:08)
[2023-03-18 16:00] VITALS: BP 129/72; TEMP 98.7; O2SAT 100
[2023-03-18] MEDS: DORZOLAMIDE OPTH 2% 10 ML BOTTLE EACHEYE SCH (18:31)
[2023-03-18] MEDS: FUROSEMIDE 20 MG TABLET GT SCH (18:31)
[2023-03-18 20:00] VITALS: BP 155/51; TEMP 99.3; O2SAT 100
[2023-03-18] MEDS: LEVETIRACETAM SOL (5 ML) 100 MG/ML UDC GT SCH (21:25)
[2023-03-18] MEDS: ISOSORBIDE DINITRATE (20MG) 20 MG TABLET GT SCH (21:26)
[2023-03-19] VITALS: BP 138/58; TEMP 98.9; O2SAT 100
[2023-03-19] MEDS: MORPHINE SULFATE INJ 2 MG/ML DISP.SYRIN IV PRN ×3 (00:01→13:53)
[2023-03-19] MEDS: BLOOD SUGAR DIAGNOSTIC 1 EACH STRIP IN SCH ×4 (00:10→17:36)
[2023-03-19] MEDS: INSULIN REGULAR, HUMAN 100 UNIT/ML 3 ML VIAL SQ PRN ×5 (00:20→23:58)
[2023-03-19 04:00] VITALS: BP 148/55; TEMP 99; O2SAT 100
[2023-03-19] MEDS: MIDODRINE HCL (5MG) 5 MG TABLET GT SCH ×3 (05:15→21:19)
[2023-03-19] MEDS: CEFEPIME 1 GM in IV D5W 50 ML IV SCH (05:16)
[2023-03-19] MEDS: NEPRO 1,000 ML BOTTLE GT PRN (05:22)
[2023-03-19 06:22] LABS: CALCIUM, SERUM 9.9 mg/dL (8.5-10.1); CREATININE 4.2 mg/dL (0.6-1.3); POTASSIUM 3.7 mmol/L (3.5-5.1)
[2023-03-19 08:00] VITALS: BP 135/67; TEMP 99.1; O2SAT 100
[2023-03-19] MEDS: ISOSORBIDE DINITRATE (20MG) 20 MG TABLET GT SCH ×2 (09:04→21:19)
[2023-03-19] MEDS: SENNOSIDES 8.6 MG TABLET GT SCH (09:04)
[2023-03-19] MEDS: AMLODIPINE BESYLATE 5 MG TABLET GT SCH (09:04)
[2023-03-19] MEDS: PREGABALIN 100 MG CAPSULE GT SCH (09:05)
[2023-03-19] MEDS: SEVELAMER CARBONATE 800 MG POWD.PACK GT SCH ×3 (09:05→17:35)
[2023-03-19] MEDS: ALLOPURINOL 100 MG TABLET GT SCH (09:05)
[2023-03-19] MEDS: FERROUS SULFATE (325 MG) 325 MG/TAB TABLET GT SCH (09:05)
[2023-03-19] MEDS: LEVETIRACETAM SOL (5 ML) 100 MG/ML UDC GT SCH ×2 (09:05→21:17)
[2023-03-19] MEDS: FUROSEMIDE 20 MG TABLET GT SCH ×2 (09:05→17:36)
[2023-03-19] MEDS: DORZOLAMIDE OPTH 2% 10 ML BOTTLE EACHEYE SCH ×2 (09:07→17:37)
[2023-03-19] MEDS: PROSOURCE / PROSTAT (PYXIS) 30 ML UDC GT SCH ×2 (09:08→17:37)
[2023-03-19] MEDS: INSULIN GLARGINE, 100 UNIT/ML CARTRIDGE SQ SCH ×2 (09:11→21:22)
[2023-03-19 12:00] VITALS: BP 129/70; TEMP 98.9; O2SAT 100
[2023-03-19] MEDS: CLOTRIMAZOLE 1% 15 GM TUBE TP SCH ×2 (14:03→17:35)
[2023-03-19] MEDS: DAKINS QUARTER STRENGTH (0.125%) 480 ML BOTTLE TOP SCH (14:04)
[2023-03-19 16:00] VITALS: BP 91/57; TEMP 98.9; O2SAT 99
[2023-03-19 20:00] VITALS: BP 106/51; TEMP 100.4; O2SAT 100
[2023-03-20] VITALS: BP 125/72; TEMP 98.6; O2SAT 100
[2023-03-20] MEDS: BLOOD SUGAR DIAGNOSTIC 1 EACH STRIP IN SCH ×5 (00:02→23:56)
[2023-03-20] MEDS ORDERED: DAKINS QUARTER STRENGTH (0.125%) 480 ML BOTTLE ONE (02:35)
[2023-03-20] MEDS: MORPHINE SULFATE INJ 2 MG/ML DISP.SYRIN IV PRN (03:20)
[2023-03-20 04:00] VITALS: BP 134/67; TEMP 99.4; O2SAT 99
[2023-03-20] MEDS: MIDODRINE HCL (5MG) 5 MG TABLET GT SCH ×3 (05:38→21:00)
[2023-03-20] MEDS: INSULIN REGULAR, HUMAN 100 UNIT/ML 3 ML VIAL SQ PRN ×4 (05:52→23:58)
[2023-03-20] MEDS: CEFEPIME 1 GM in IV D5W 50 ML IV SCH (05:54)
[2023-03-20] MEDS ORDERED: ACETAMINOPHEN 650 MG/20.3 ML UDC GT PRN (07:00)
[2023-03-20 08:00] VITALS: BP 98/57; TEMP 98.1; O2SAT 100
[2023-03-20] MEDS: PROSOURCE / PROSTAT (PYXIS) 30 ML UDC GT SCH ×2 (08:56→16:05)
[2023-03-20] MEDS: LEVETIRACETAM SOL (5 ML) 100 MG/ML UDC GT SCH ×2 (08:56→21:31)
[2023-03-20] MEDS: SENNOSIDES 8.6 MG TABLET GT SCH (08:57)
[2023-03-20] MEDS: ALLOPURINOL 100 MG TABLET GT SCH (08:57)
[2023-03-20] MEDS: FUROSEMIDE 20 MG TABLET GT SCH ×2 (08:57→17:56)
[2023-03-20] MEDS: FERROUS SULFATE (325 MG) 325 MG/TAB TABLET GT SCH (08:57)
[2023-03-20] MEDS: DORZOLAMIDE OPTH 2% 10 ML BOTTLE EACHEYE SCH ×2 (08:57→16:06)
[2023-03-20] MEDS: AMLODIPINE BESYLATE 5 MG TABLET GT SCH (08:58)
[2023-03-20] MEDS: PREGABALIN 100 MG CAPSULE GT SCH (08:58)
[2023-03-20] MEDS: ISOSORBIDE DINITRATE (20MG) 20 MG TABLET GT SCH ×2 (08:59→21:31)
[2023-03-20] MEDS: DAKINS QUARTER STRENGTH (0.125%) 480 ML BOTTLE TOP SCH (09:21)
[2023-03-20] MEDS: CLOTRIMAZOLE 1% 15 GM TUBE TP SCH ×2 (09:21→16:06)
[2023-03-20] MEDS: INSULIN GLARGINE, 100 UNIT/ML CARTRIDGE SQ SCH ×2 (09:27→21:33)
[2023-03-20] MEDS: SEVELAMER CARBONATE 800 MG POWD.PACK GT SCH ×3 (09:59→17:56)
[2023-03-20] MEDS: HYDROCODONE/APAP 5/325MG TABLET GT PRN ×2 (10:48→10:58)
[2023-03-20 12:00] VITALS: BP 110/85; TEMP 99.1; O2SAT 99
[2023-03-20 16:00] VITALS: BP 121/60; TEMP 99; O2SAT 96
[2023-03-20] MEDS: NEPRO 1,000 ML BOTTLE GT PRN (18:52)
[2023-03-20 20:00] VITALS: BP 123/57; TEMP 99.4; O2SAT 100
[2023-03-21] VITALS: BP 110/56; TEMP 99; O2SAT 100
[2023-03-21 04:00] VITALS: BP 106/57; TEMP 99.7; O2SAT 100
[2023-03-21] MEDS: MIDODRINE HCL (5MG) 5 MG TABLET GT SCH ×2 (05:26→13:51)
[2023-03-21] MEDS: CEFEPIME 1 GM in IV D5W 50 ML IV SCH (05:26)
[2023-03-21] MEDS: BLOOD SUGAR DIAGNOSTIC 1 EACH STRIP IN SCH ×3 (05:27→17:51)
[2023-03-21] MEDS: INSULIN REGULAR, HUMAN 100 UNIT/ML 3 ML VIAL SQ PRN ×3 (05:28→17:54)
[2023-03-21 06:27] LABS: CREATININE 6.2 mg/dL (0.6-1.3); POTASSIUM 4.1 mmol/L (3.5-5.1)
[2023-03-21 08:00] VITALS: BP 122/63; TEMP 98.7; O2SAT 97
[2023-03-21] MEDS: DORZOLAMIDE OPTH 2% 10 ML BOTTLE EACHEYE SCH ×2 (08:45→17:32)
[2023-03-21] MEDS: PROSOURCE / PROSTAT (PYXIS) 30 ML UDC GT SCH ×2 (08:53→17:32)
[2023-03-21] MEDS: SENNOSIDES 8.6 MG TABLET GT SCH (08:55)
[2023-03-21] MEDS: ALLOPURINOL 100 MG TABLET GT SCH (08:55)
[2023-03-21] MEDS: SEVELAMER CARBONATE 800 MG POWD.PACK GT SCH ×3 (08:55→17:54)
[2023-03-21] MEDS: LEVETIRACETAM SOL (5 ML) 100 MG/ML UDC GT SCH (08:55)
[2023-03-21] MEDS: PREGABALIN 100 MG CAPSULE GT SCH (08:55)
[2023-03-21] MEDS: FERROUS SULFATE (325 MG) 325 MG/TAB TABLET GT SCH (08:55)
[2023-03-21] MEDS: INSULIN GLARGINE, 100 UNIT/ML CARTRIDGE SQ SCH (09:00)
[2023-03-21] MEDS: FUROSEMIDE 20 MG TABLET GT SCH ×2 (09:00→17:54)
[2023-03-21] MEDS: AMLODIPINE BESYLATE 5 MG TABLET GT SCH (09:00)
[2023-03-21] MEDS: ISOSORBIDE DINITRATE (20MG) 20 MG TABLET GT SCH (09:00)
[2023-03-21] MEDS: DAKINS QUARTER STRENGTH (0.125%) 480 ML BOTTLE TOP SCH (09:16)
[2023-03-21] MEDS: CLOTRIMAZOLE 1% 15 GM TUBE TP SCH ×2 (09:16→17:32)
[2023-03-21 12:00] VITALS: BP 93/47; TEMP 98.6; O2SAT 98
[2023-03-21] MEDS: ALBUMIN 25% 25 GM in PREMIX 1 EA IV PRN (13:51)
[2023-03-21 16:00] VITALS: BP 107/45; TEMP 98.8; O2SAT 98
== END 2023-03-21 18:30 | DRG 870 ==
LOC: TELE1 11:08
PROVIDERS: ATTEND Internal Medicine
PROC: 5A1955Z Respiratory Ventilation, Greater than 96 Consecutive Hours (ICD-10-PCS; principal; 2023-03-09)
PROC: 5A1D70Z Performance of Urinary Filtration, Intermittent, Less than 6 Hours Per Day (ICD-10-PCS; 2023-03-09)
PROC: 30233N1 Transfusion of Nonautologous Red Blood Cells into Peripheral Vein, Percutaneous Approach (ICD-10-PCS; 2023-03-09)
PROC: 05HC33Z Insertion of Infusion Device into Left Basilic Vein, Percutaneous Approach (ICD-10-PCS; 2023-03-14)
PROC: 05HY33Z Insertion of Infusion Device into Upper Vein, Percutaneous Approach (ICD-10-PCS; 2023-03-21)
DX: A41.9 Sepsis, unspecified organism (principal); L89.154 Pressure ulcer of sacral region, stage 4; N18.6 End stage renal disease; E43 Unspecified severe protein-calorie malnutrition; G92.8 Other toxic encephalopathy; J95.851 Ventilator associated pneumonia; J96.10 Chronic respiratory failure, unspecified whether with hypoxia or hypercapnia; I12.0 Hypertensive chronic kidney disease with stage 5 chronic kidney disease or end stage renal disease; Z99.11 Dependence on respirator [ventilator] status; Z68.41 Body mass index [BMI] 40.0-44.9, adult; G61.0 Guillain-Barre syndrome; Y84.8 Other medical procedures as the cause of abnormal reaction of the patient, or of later complication, without mention of misadventure at the time of the procedure; Y92.129 Unspecified place in nursing home as the place of occurrence of the external cause; R13.10 Dysphagia, unspecified; Z93.0 Tracheostomy status; Z93.1 Gastrostomy status; Z86.69 Personal history of other diseases of the nervous system and sense organs; L30.4 Erythema intertrigo; J39.8 Other specified diseases of upper respiratory tract; I27.20 Pulmonary hypertension, unspecified; Z99.2 Dependence on renal dialysis; Z90.49 Acquired absence of other specified parts of digestive tract; Z79.4 Long term (current) use of insulin; Z79.51 Long term (current) use of inhaled steroids; Z79.899 Other long term (current) drug therapy; Z79.82 Long term (current) use of aspirin; Z88.0 Allergy status to penicillin; Z91.040 Latex allergy status; Z91.018 Allergy to other foods; D63.8 Anemia in other chronic diseases classified elsewhere; E66.01 Morbid (severe) obesity due to excess calories; E87.5 Hyperkalemia; E83.42 Hypomagnesemia; E87.6 Hypokalemia; E88.09 Other disorders of plasma-protein metabolism, not elsewhere classified; E11.22 Type 2 diabetes mellitus with diabetic chronic kidney disease; E11.65 Type 2 diabetes mellitus with hyperglycemia; D69.6 Thrombocytopenia, unspecified; R21 Rash and other nonspecific skin eruption
CPT/HCPCS: 31720; 36410; 36415; 36600; 71045-TC; 80048-TC; 80053-TC; 80061-TC; 80202-TC; 82803-TC; 82962-TC; 83735-TC; 84100-TC; 84132-TC; 84443-TC; 85025-TC; 85027-TC; 86706; 86850-TC; 87081-TC; 87340; 90935-TC; 94003-TC; 94760-TC; 94762-TC; 94799-TC; A4216; A4223; A6253; A6403; A7526; G0378; J0692; J0885; J1644; J1815; J1953; J2270; J3370; J7030; J7050; J7060; P9016; P9047